=== PATIENT | female | born 1995 | race Caucasian/White ===

== ENCOUNTER 2021-08-28 19:50 | Inpatient (IN) | payer BC ==
[2021-08-28] MEDS ORDERED: Butorphanol 1 MG/ML SDV IVPUSH PRN (21:42)
[2021-08-28] MEDS ORDERED: Water For Irrigation,Sterile 1,000 ML Container IRR PRN (21:42)
[2021-08-28] MEDS ORDERED: Misoprostol 200 MCG Tab PO PRN (21:42)
[2021-08-28] MEDS ORDERED: Ondansetron 4 MG/2 ML SDV IVPUSH PRN (21:42)
[2021-08-28] MEDS ORDERED: Nalbuphine 10 MG/1 ML Vial IVPUSH PRN (21:42)
[2021-08-28] MEDS ORDERED: Sodium Chloride 0.9% 10 ML Syringe FLUSH PRN (21:42)
[2021-08-28] MEDS ORDERED: Carboprost Tromethamine 250 MCG/1 ML Amp IM PRN (21:42)
[2021-08-28] MEDS ORDERED: Methylergonovine 0.2 MG/1 ML Amp IM PRN (21:42)
[2021-08-28] MEDS ORDERED: Tranexamic Acid 1,000 MG in Sodium Chloride 0.9% 100 ML IV PRN (21:42)
[2021-08-28] MEDS ORDERED: Sodium Chloride 0.9% 2.5 ML Syringe FLUSH PRN (21:42)
[2021-08-28] MEDS ORDERED: Lidocaine 1% 50 ML MDV INJECT PRN (21:42)
[2021-08-28] MEDS ORDERED: Sodium Chloride 0.9% 10 ML SDV IV PRN (21:42)
[2021-08-28] MEDS ORDERED: Oxytocin/0.9 % Sodium Chloride 30 UNIT/500 ML BAG IV SCH (21:45)
[2021-08-28] MEDS: Lactated Ringers 1,000 ML IV SCH ×3 (22:04→23:56)
[2021-08-28] MEDS ORDERED: Ropivacaine HCl/PF 200 ML ONE (23:50)
--- NOTE | 2021-08-29 00:15 | PCM.PREANE ---
Preanesthetic Assessment - Anesthesia/Transfusion/Family Hx Anesthesia History: No Prior Anesthesia Family History of Anesthesia Reaction: No Transfusion History: No Prior Transfusion(s) - Review of Systems General: No Symptoms Pulmonary: Other (Covid + without symptoms) Cardiovascular: No Symptoms Gastrointestinal: No Symptoms Neurological: No Symptoms Other: Reports: None - Physical Assessment NPO Status Date: 08/29/21 NPO Status Time: 20:00 Height: 1.68 m Weight: 108.862 kg ASA Class: 2 Mental Status: Alert & Oriented x3 Airway Class: Mallampati = 2 Dentition: Reports: Normal Dentition Thyro-Mental Finger Breadths: 3 Mouth Opening Finger Breadths: 3 ROM/Head Extension: Full Lungs: Clear to Auscultation, Normal Respiratory Effort Cardiovascular: Regular Rate, Regular Rhythm - Lab Values: Laboratory Last Values WBC 7.84 K/uL (4.0-11.0) 08/28/21 22:02 RBC 3.76 M/uL (4.30-5.90) L 08/28/21 22:02 Hgb 10.9 g/dL (12.0-16.0) L 08/28/21 22:02 Hct 31.4 % (36.0-46.0) L 08/28/21 22:02 MCV 83.5 fL (80.0-98.0) 08/28/21 22:02 MCH 29.0 pg (27.0-32.0) 08/28/21 22:02 MCHC 34.7 g/dL (31.0-37.0) 08/28/21 22:02 RDW Std Deviation 39.2 fl (28.0-62.0) 08/28/21 22:02 RDW Coeff of Kwasi 13 % (11.0-15.0) 08/28/21 22:02 Plt Count 299 K/uL (150-400) 08/28/21 22:02 MPV 9.60 fL (7.40-12.00) 08/28/21 22:02 Nucleated RBC % 0.0 /100WBC 08/28/21 22:02 Nucleated RBCs # 0 K/uL 08/28/21 22:02 SARS-CoV-2 RNA (LUCIO) POSITIVE (NEGATIVE) H 08/28/21 22:07 Blood Type B NEGATIVE 08/28/21 22:02 Antibody Screen NEGATIVE 08/28/21 22:02 - Allergies Allergies/Adverse Reactions: Allergies Allergy/AdvReac Type Severity Reaction Status Date / Time No Known Allergies Allergy Verified 08/28/21 20:19 - Blood Blood Available: Yes Product(s) Available: PRBC (Type and screen) - Anesthesia Plan Pre-Op Medication Ordered: None - Acknowledgements Anesthesia Type Planned: Epidural Pt an Appropriate Candidate for the Planned Anesthesia: Yes Alternatives and Risks of Anesthesia Discussed w Pt/Guardian: Yes Pt/Guardian Understands and Agrees with Anesthesia Plan: Yes PreAnesthesia Questionnaire - Past Health History Medical/Surgical History: Denies 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: - Infectious Disease History Infectious Disease History: Reports: Chicken Pox - SUBSTANCE USE Tobacco Use Status *Q: Former Tobacco User Tobacco Use Within Last Twelve Months: Cigarettes Second Hand Smoke Exposure: No Recreational Drug Use History: No - HOME MEDS Home Medications: Home Meds Omeprazole Magnesium [Prilosec Otc] 1 tab PO DAILY 08/28/21 [History] Pnv No.95/Ferrous Fum/Folic AC [ Vitamins Tablet] 1 tab PO DAILY 08/28/21 [History] - CURRENT (IN HOUSE) MEDS Current Meds: Current Medications Butorphanol Tartrate (Butorphanol 1 Mg/Ml Sdv) 1 mg IVPUSH Q1H PRN PRN Reason: Pain (severe 7-10) Carboprost Tromethamine (Carboprost Tromethamine 250 Mcg/1 Ml Amp) 250 mcg IM ASDIRECTED PRN PRN Reason: Post Hemorrhage Oxytocin/Sodium Chloride (Oxytocin 30 Unit In Ns 0.9% 500 Ml Premix) 30 unit in 500 mls @ 500 mls/hr IV TITRATE [place] Tranexamic Acid 1,000 mg/ (Sodium Chloride) 110 mls @ 660 mls/hr IV ONETIME PRN PRN Reason: Bleeding Lactated Ringer's (Ringers, Lactated) 1,000 mls @ 150 mls/hr IV ASDIRECTED [facility] Last Infusion: 08/29/21 00:04 Dose: 200 mls/hr Documented by: Lidocaine HCl (Lidocaine 1% 50 Ml Mdv) 50 ml INJECT ONETIME PRN PRN Reason: Laceration repair Methylergonovine Maleate (Methylergonovine 0.2 Mg/1 Ml Amp) 0.2 mg IM ASDIRECTED PRN PRN Reason: Post Hemorrhage Misoprostol (Misoprostol 200 Mcg Tab) 200 mcg PO ONETIME PRN PRN Reason: Post Hemorrhage Nalbuphine HCl (Nalbuphine 10 Mg/1 Ml Vial) 10 mg IVPUSH Q1H PRN PRN Reason: Pain (severe 7-10) Ondansetron HCl (Ondansetron 4 Mg/2 Ml Sdv) 4 mg IVPUSH Q4H PRN PRN Reason: Nausea/Vomiting Sodium Chloride (Sodium Chloride 0.9% 10 Ml Syringe) 10 ml FLUSH ASDIRECTED PRN PRN Reason: Keep Vein Open Sodium Chloride (Sodium Chloride 0.9% 2.5 Ml Syringe) 2.5 ml FLUSH ASDIRECTED PRN PRN Reason: Keep Vein Open Sodium Chloride (Sodium Chloride 0.9% 10 Ml Sdv) 10 ml IV ASDIRECTED PRN PRN Reason: IV Use Sterile Water (Water For Irrigation,Sterile 1,000 Ml Container) 1,000 ml IRR ASDIRECTED PRN PRN Reason: delivery Discontinued Medications Ropivacaine (Naropin 0.2%) Confirm Administered Dose 200 mls @ as directed .ROUTE .RUST-MED ONE Stop: 08/28/21 23:51
--- NOTE | 2021-08-29 00:25 | PCM.SN.2 ---
Time Documentation - Pre-Procedure Checklist Attending Provider Aware: Yes Chart Reviewed: Yes Consent Signed: Yes Labs Reviewed: Yes VS/FHR Reviewed: Yes Patient Identification Confirmation Method: Reports: Chart Visual, Verbal Patient Pt an Appropriate Candidate for the Planned Anesthesia: Yes Alternatives and Risks of Anesthesia Discussed w Pt/Guardian: Yes - Procedure Procedure Start Date: 08/28/21 Procedure Start Time: 23:[address]: Reports: Blood Pressure, Heart Rate, SPO2 Functional IV: Yes Safety Measures: Reports: Patient Identified, Procedure Verified, Site Verified, Procedure Time Out Patient Position: Reports: Sitting Prep: Reports: Betadine x3 Local Anesthetic: Reports: Intradermal Wheal w Lidocaine 1% (3 ml) Regional Placement Level: Reports: L3-4 Needle: Reports: 17 g Touhy Approach: Reports: Midline Technique: Reports: JES Glass Syringe JES Needle Depth (cm): 7 cm Parasthesia: Reports: None, Other (momentary sensation down leg with resolved instantly durring catheter placement.) Fluid Obtained: Reports: None Catheter Depth at Skin (cm): 17 cm Test Dose Time: 23:46 Test Dose Medication: Reports: Lidocaine 1.5% w Epinephrine 1:200,000 (5 ml) Test Dose Response: Reports: Negative Loading Dose Time: 23:55 Loading Dose Medication: Ropivicaine 0.2% Loading Dose Patient Position: Supine Continuous Infusion Start Time: 23:56 Continuous Infusion Medication: Ropivicaine 0.2% Continuous Infusion Rate: 10 Continuous Infusion PCS Bolus Option: 6 Continuous Infusion Lockout Dose (cc/hr): 15 Patient Position Post Placement: Reports: Supline/EDWIN Post-procedure Pain Level: 2 Level Achieved: t4 VS and FHR Monitored in Unit Post Placement: Yes Procedure End Date: 08/29/21 Procedure End Time: 00:30 Procedure Comment: Sterile technique used throughout.
[2021-08-29] MEDS ORDERED: ePHEDrine 50 MG/ML SDV IVPUSH PRN (00:31)
--- NOTE | 2021-08-29 00:31 | PCM.POSTAN ---
POST ANESTHESIA ASSESSMENT - MENTAL STATUS Mental Status: Alert, Oriented - RESPIRATORY Respiratory Status: Respiratory Rate WNL, Airway Patent, O2 Saturation Stable - CARDIOVASCULAR CV Status: Pulse Rate WNL, Blood Pressure Stable - GASTROINTESTINAL GI Status: No Symptoms - POST OP HYDRATION Hydration Status: Adequate & Stable (Orders left to check PLT prior to catheter removal and notify anesthesia if PLT less than 100.)
[2021-08-29] MEDS ORDERED: Ropivacaine/PF 400 MG/200 ML PCA EPIDUR SCH (00:45)
[2021-08-29] MEDS: Lactated Ringers 1,000 ML IV SCH ×2 (02:58→05:58)
[2021-08-29] MEDS ORDERED: Acetaminophen 500 MG Tab PO STA (05:45)
[2021-08-29] MEDS ORDERED: Oxytocin/0.9 % Sodium Chloride 30 UNIT/500 ML BAG IV SCH ×2 (09:00→18:45)
[2021-08-29] MEDS ORDERED: Ropivacaine HCl/PF 200 ML ONE (15:22)
[2021-08-29] MEDS ORDERED: Ampicillin/Sulbactam Na 3 GM in Sodium Chloride 0.9% 100 ML IV ONE (15:45)
[2021-08-29] MEDS ORDERED: Acetaminophen 500 MG Tab PO ONE (15:47)
[2021-08-29] MEDS ORDERED: Acetaminophen 500 MG Tab ONE (15:55)
[2021-08-29] MEDS ORDERED: Terbutaline 1 MG/ML SDV ONE (18:26)
[2021-08-29] MEDS ORDERED: Citric Acid/Sodium Citrate Solution 30 ML Cup PO ONE (18:38)
[2021-08-29] MEDS ORDERED: ceFAZolin 2 GM in Premix Bag 1 BAG IV ONE (18:38)
[2021-08-29] MEDS ORDERED: fentaNYL 100 MCG/2 ML SDV ONE (18:42)
[2021-08-29] MEDS ORDERED: Lidocaine 2% with EPINEPHrine 1:200,000 20 ML SDV ONE ×2 (18:42→19:56)
[2021-08-29] MEDS ORDERED: Lactated Ringers 1,000 ML IV SCH ×2 (18:45→20:45)
[2021-08-29] MEDS ORDERED: Octyl 2-Cyanoacrylate 1 Tube ONE (19:10)
[2021-08-29] MEDS ORDERED: Glycopyrrolate 0.2 MG/ML SDV ONE (19:56)
[2021-08-29] MEDS ORDERED: ePHEDrine 50 MG/ML SDV ONE (19:56)
[2021-08-29] MEDS ORDERED: Lidocaine 2% 5 ML SDV ONE (19:56)
[2021-08-29] MEDS ORDERED: Ondansetron 4 MG/2 ML SDV ONE (19:56)
[2021-08-29] MEDS ORDERED: Metoclopramide 10 MG/2 ML SDV ONE (19:58)
[2021-08-29] MEDS ORDERED: Dexamethasone 4 MG/ML 5 ML MDV ONE (19:58)
--- NOTE | 2021-08-29 20:36 | PCM.OPNOTE ---
- General Post-Op/Procedure Note Date of Surgery/Procedure: 08/29/21 Operative Procedure(s): primary low transverse Findings: Liveborn male 8/8 weight 4310 grams, normal pelvis, thick meconium Pre Op Diagnosis: 40 3/7 weeks, labor, meconium, febrile, COVID positive Post-Op Diagnosis: Same Anesthesia Technique: Epidural Primary Surgeon: Vandana Crouch Anesthesia Provider: Esa Uribe Pathology: placenta to pathology Fluid Replacement, Intraop: 1,800 EBL in mLs: 500 Complications: None Known Condition: Good Free Text/Narrative:: Intake & Output 08/29/21 08/29/21 08/29/21 06:59 14:59 22:59 Intake Total 3000 Balance 3000
[2021-08-29] MEDS ORDERED: Misoprostol 200 MCG Tab RECTAL PRN (20:38)
[2021-08-29] MEDS ORDERED: Oxytocin 10 Units/1 ML SDV IM PRN (20:38)
[2021-08-29] MEDS ORDERED: Bisacodyl 10 MG Supp RECTAL PRN (20:38)
[2021-08-29] MEDS ORDERED: Ondansetron 4 MG/2 ML SDV IVPUSH PRN (20:38)
[2021-08-29] MEDS ORDERED: diphenhydrAMINE 50 MG/ML SDV IVPUSH PRN (20:38)
[2021-08-29] MEDS ORDERED: Methylergonovine 0.2 MG/1 ML Amp IM PRN (20:38)
[2021-08-29] MEDS ORDERED: Lanolin 100% Cream 7 GM Tube TOP PRN (20:38)
[2021-08-29] MEDS ORDERED: Acetaminophen/oxyCODONE 325-5 MG Tab PO PRN (20:38)
[2021-08-29] MEDS ORDERED: Oxytocin/Lactated Ringers 30 UNIT/500 ML BAG IV SCH (20:45)
[2021-08-29] MEDS: Ketorolac 30 MG/ML SDV IVPUSH SCH (21:33)
--- NOTE | 2021-08-29 21:47 | PCM48HPAN ---
Post Anesthesia Note - EVALUATION WITHIN 48HRS OF ANESTHETIC Vital Signs in Normal Range: Yes Patient Participated in Evaluation: Yes Respiratory Function Stable: Yes Airway Patent: Yes Cardiovascular Function Stable: Yes Hydration Status Stable: Yes Pain Control Satisfactory: Yes Nausea and Vomiting Control Satisfactory: Yes Mental Status Recovered: Yes Vital Signs: Last Vital Signs Temp 37.2 C 08/29/21 20:22 Pulse 102 H 08/29/21 21:17 Resp 14 08/29/21 21:17 BP 114/51 L 08/29/21 21:17 Pulse Ox 97 08/29/21 21:17
--- NOTE | 2021-08-29 21:52 | PCM.SN.2 ---
Time Documentation - Pre-Procedure Checklist Attending Provider Aware: Yes Chart Reviewed: Yes Consent Signed: Yes Labs Reviewed: Yes VS/FHR Reviewed: Yes Patient Identification Confirmation Method: Reports: Chart Visual, Verbal Patient Pt an Appropriate Candidate for the Planned Anesthesia: Yes Alternatives and Risks of Anesthesia Discussed w Pt/Guardian: Yes - Procedure Procedure Start Date: 08/29/21 Procedure Start Time: 19:[address]: Reports: Blood Pressure, Heart Rate, SPO2 Functional IV: Yes Safety Measures: Reports: Patient Identified, Procedure Verified, Site Verified, Procedure Time Out Patient Position: Reports: Sitting Prep: Reports: Betadine x3 Local Anesthetic: Reports: Intradermal Wheal w Lidocaine 1% (3 ml) Regional Placement Level: Reports: L3-4 Needle: Reports: 17 g Touhy Approach: Reports: Midline Technique: Reports: JES Glass Syringe JES Needle Depth (cm): 6.5 cm Parasthesia: Reports: None Fluid Obtained: Reports: None Catheter Depth at Skin (cm): 15 cm Test Dose Time: 19:18 Test Dose Medication: Reports: Lidocaine 1.5% w Epinephrine 1:200,000 (5 ml) Test Dose Response: Reports: Negative Loading Dose Time: 19:18 Loading Dose Medication: 2 % Lido with 1:200,000 Epi PF Loading Dose Patient Position: 20 Continuous Infusion Start Time: 19:18 (no infusion started) Patient Position Post Placement: Reports: Supline/EDWIN Post-procedure Pain Level: 0 Level Achieved: T4 VS and FHR Monitored in Unit Post Placement: Yes Procedure End Date: 08/29/21 Procedure End Time: 19:20 Procedure Comment: Epidural end cap became dislodged and contaminated and second epidural was required for C Section. Sterile Technique used throughout.
[2021-08-29] MEDS ORDERED: Ampicillin/Sulbactam Na 1.5 GM in Sodium Chloride 0.9% 50 ML IV SCH (22:00)
[2021-08-29] MEDS: Ampicillin/Sulbactam Na 1.5 GM in Sodium Chloride 0.9% 50 ML IV SCH (22:03)
--- NOTE | 2021-08-29 23:05 | PCM.SN.2 ---
- Free Text/Narrative Note: 1909: Epidural noted to have become disconnected and sterility of end could not be confirmed and decision was made to replace epidural to provide analgesia for . First epidural removed with tip intact. 2020: Epidural removed with tip intact in OR. Time Documentation
--- NOTE | 2021-08-29 23:35 | OR ---
SURGEON: Vandana Crouch M.D. DATE OF PROCEDURE: 08/29/2021 PREOPERATIVE DIAGNOSES: 1. 40 and 3/7-week intrauterine . 2. Suspected macrosomia. 3. Arrest of descent. 4. COVID-positive. POSTOPERATIVE DIAGNOSES: 1. 40 and 3/7-week intrauterine . 2. Suspected macrosomia. 3. Arrest of descent. 4. COVID-positive. PROCEDURE: Primary low-transverse section. PRIMARY SURGEON: Vandana Crouch M.D. ANESTHESIA: Epidural. ESTIMATED BLOOD LOSS: 500 mL. FLUIDS: 1800 mL crystalloid. FINDINGS: 1. Liveborn male. 2. scores of 8 and 8. 3. Weighing 4310 g. 4. Hydrocele is noted. 5. Thick meconium. COMPLICATIONS: None known. DISPOSITION: Stable to Recovery. BRIEF HISTORY: This is a 25-year-old female. She is a primigravida, presents at 3 to 4 cm dilatation, was admitted to Labor and Delivery. She had suspected macrosomia with ultrasound weight estimated at 4080 g, however, Guero was suspected 4500 g. She on admission was noted to be COVID-positive and although she denied symptoms, she did develop a fever up to 103 during labor which responded to Tylenol and hydration. heart tones were episodically tachycardic. She had artificial rupture of membranes at 5 cm dilatation and thick meconium was noted at that time. After hydration and Tylenol, her heart tones improved significantly. She was started on Unasyn 3 g IV, and she remained at 5 to 6 cm dilatation over the next 4 hours. Therefore, IUPC was placed and Pitocin was initiated to a maximum of 4 milliunits per minute to develop adequate contraction pattern and with this, she progressed to complete. She did push over a 4-hour time period, starting at a -3 station. The caput ended out at 4+ station. However, the head was at a 2 to 3+ station. The skull was at a 2 to 3+ station. After 4 hours, the patient requested delivery. I did not recommend proceeding with an instrumental vaginal delivery due to the known or suspected macrosomia, and therefore she did request to proceed with a primary low transverse section. Pitocin was discontinued. Terbutaline was initiated. The head was elevated manually and the section crew was called. Risks were discussed including bleeding; infection; injury to bowel, bladder, blood vessels, ureters, or other organs; risk of thromboembolic event; risk of anesthesia. Understanding all these risks, she does desire to proceed. DESCRIPTION OF PROCEDURE: With the patient in left tilt position, under adequate epidural analgesia, the abdomen was prepped with chlorhexidine and draped in usual fashion for vaginal surgery. SCDs were in place. Marrufo catheter had been placed. Appropriate time- out was held. The patient was placed in a frog-leg position allowing cephalad pressure from the nurse during the . After appropriate time-out was held, having received a gram of azithromycin in addition to 2 g of Ancef due to the prolonged rupture of membranes and fever, a transverse curvilinear incision was made 2 cm cephalad from the pubic symphysis and carried through the subcutaneous tissue to the fascia which was scored transversely in the midline. The fascial incision was extended laterally using Monroe scissors. The rectus muscles were bluntly in the midline. A finger was used to enter the peritoneal cavity. The incision was extended using blunt dissection. The Sam O retractor was placed. The visceral peritoneum over the lower uterine segment was incised to develop an adequate bladder flap. A transverse curvilinear incision was made over the lower uterine segment with a scalpel. A finger was used to enter the amniotic cavity. Thick meconium was noted. With upward pressure from the assisting nurse's hand, I fairly easily elevated the baby's head into the uterine incision and with fundal pressure, the was partially delivered and bulb-suctioned by nose and mouth with subsequent delivery of the infant's shoulders and body without any difficulty. After 45 seconds, the cord was doubly clamped and cut and the infant was handed to the medical lead in attendance at delivery. The was a liveborn male, scores of 8 and 8, weight of 4310 g. Cord blood was collected for cord ABGs as well as routine cord blood sampling. Pitocin was initiated after delivery of the infant to assist with delivery of the placenta which was delivered spontaneously, Schultze intact, and sent to Pathology. The uterus was cleaned with a dry laparotomy tape. The uterine incision was closed with a running lock suture of 0 Polysorb. The imbricating layer was performed and three additional [id number] sutures were placed for complete hemostasis. The paracolic gutters were irrigated and cleaned. Tubes and ovaries appeared normal. The uterine incision was hemostatic. The Sam retractor was removed. Final inspection revealed complete hemostasis of the uterine incision. Therefore, the rectus muscle and peritoneum were loosely approximated in the midline using a running mattress suture of 0 Polysorb. The posterior aspect of the fascia was inspected and was hemostatic. The fascial incision was closed with a running suture of 0 Polysorb. Subcutaneous tissue was irrigated. Any areas of bleeding that were noted were cauterized. The skin was closed with a running subcuticular suture of 3-0 Monocryl followed by Dermabond. Final sponge, needle, and instrument counts were reported as correct. There were no known complications. Mother is transferred to Recovery in good condition. is in the nursery room in isolation due to COVID-positive mom and is being transferred due to suspected meconium aspiration versus symptomatic COVID. ELIGIO / STEPHANIE /[id number]
[2021-08-30] MEDS: Ketorolac 30 MG/ML SDV IVPUSH SCH ×4 (04:19→22:52)
[2021-08-30] MEDS: Ampicillin/Sulbactam Na 1.5 GM in Sodium Chloride 0.9% 50 ML IV SCH ×3 (04:20→16:25)
--- NOTE | 2021-08-30 09:49 | PCM.PNPP ---
- General Info Date of Service: 08/30/21 Functional Status: Reports: Pain Controlled, Tolerating Diet, Ambulating, Urinating - Review of Systems General: Reports: No Symptoms HEENT: Reports: No Symptoms Pulmonary: Reports: No Symptoms Cardiovascular: Reports: No Symptoms Gastrointestinal: Reports: No Symptoms Genitourinary: Reports: No Symptoms Musculoskeletal: Reports: No Symptoms Skin: Reports: No Symptoms Neurological: Reports: No Symptoms Psychiatric: Reports: No Symptoms - Patient Data Vital Signs - Most Recent: Last Vital Signs Temp 37.4 C 08/29/21 21:45 Pulse 99 08/29/21 21:45 Resp 20 08/29/21 21:45 BP 123/68 08/29/21 21:45 Pulse Ox 95 08/29/21 21:45 Weight - Most Recent: 108.862 kg I&O - Last 24 Hours: Intake & Output 08/29/21 08/30/21 08/30/21 22:59 06:59 14:59 Intake Total 3000 Output Total 225 3250 Balance 2775 -3250 Lab Results - Last 24 Hours: Laboratory Results - last 24 hr 08/29/21 08/29/21 08/30/21 Range/Units 19:44 21:22 05:35 Hgb 9.4 L (12.0-16.0) g/dL Hct 27.9 L (36.0-46.0) % Cord ABG pH 7.181 (7.18-7.38) Cord ABG Base Excess -8 (-10--2) Cord VBG pH 7.274 (7.25-7.45) Cord VBG Base Excess -8 (-10--2) Screen NEGATIVE (NEGATIVE) RhIG Candidate? YES Rhogam Indicated YES, BABY RH POS H Med Orders - Current: Current Medications Bisacodyl (Bisacodyl 10 Mg Supp) 10 mg RECTAL ONETIME PRN PRN Reason: Constipation Diphenhydramine HCl (Diphenhydramine 50 Mg/Ml Sdv) 25 mg IVPUSH Q6H PRN PRN Reason: Itching or Nausea Docusate Sodium (Docusate Sodium 100 Mg Cap) 100 mg PO BID [place] Emollient Ointment (Lanolin 100% Cream 7 Gm Tube) 0 gm TOP ASDIRECTED PRN PRN Reason: Sore Nipples Lactated Ringer's (Ringers, Lactated) 1,000 mls @ 125 mls/hr IV ASDIRECTED [facility] Last Admin: 08/29/21 22:27 Dose: 125 mls/hr Documented by: Oxytocin/Lactated Ringer's (Pitocin In Lr 30 Units/500 Ml) 30 unit in 500 mls @ 999 mls/hr IV TITRATE [place]; Protocol Ampicillin Sodium/Sulbactam (Sodium 1.5 gm/ Sodium Chloride) 50 mls @ 150 mls/hr IV Q6H [facility] Stop: 08/30/21 16:19 Last Admin: 08/30/21 04:20 Dose: 150 mls/hr Documented by: Ibuprofen (Ibuprofen 800 Mg Tab) 800 mg PO Q8H PRN PRN Reason: Cramping Ketorolac Tromethamine (Ketorolac 30 Mg/Ml Sdv) 30 mg IVPUSH Q6H [place] Stop: 08/30/21 20:46 Last Admin: 08/30/21 04:19 Dose: 30 mg Documented by: Methylergonovine Maleate (Methylergonovine 0.2 Mg/1 Ml Amp) 0.2 mg IM ONETIME PRN PRN Reason: Excessive Vaginal Bleeding Misoprostol (Misoprostol 200 Mcg Tab) 1,000 mcg RECTAL ONETIME PRN PRN Reason: excessive bleeding Ondansetron HCl (Ondansetron 4 Mg/2 Ml Sdv) 4 mg IVPUSH Q4H PRN PRN Reason: Nausea/Vomiting Oxycodone/Acetaminophen (Acetaminophen/Oxycodone 325-5 Mg Tab) 2 tab PO Q4H PRN PRN Reason: Pain (severe 7-10) Oxytocin (Oxytocin 10 Units/1 Ml Sdv) 10 unit IM ASDIRECTED PRN PRN Reason: Excessive Vaginal Bleeding Discontinued Medications Acetaminophen (Acetaminophen 500 Mg Tab) 1,000 mg PO STAT STA Stop: 08/29/21 05:46 Last Admin: 08/29/21 05:54 Dose: 1,000 mg Documented by: Acetaminophen (Acetaminophen 500 Mg Tab) 1,000 mg PO ONETIME ONE Stop: 08/29/21 15:48 Last Admin: 08/29/21 16:10 Dose: 1,000 mg Documented by: Acetaminophen (Acetaminophen 500 Mg Tab) Confirm Administered Dose 1,000 mg .ROUTE .STK-MED ONE Stop: 08/29/21 15:56 Butorphanol Tartrate (Butorphanol 1 Mg/Ml Sdv) 1 mg IVPUSH Q1H PRN PRN Reason: Pain (severe 7-10) Carboprost Tromethamine (Carboprost Tromethamine 250 Mcg/1 Ml Amp) 250 mcg IM ASDIRECTED PRN PRN Reason: Post Hemorrhage Citric Acid/Sodium Citrate (Citric Acid/Sodium Citrate Solution 30 Ml Cup) 30 ml PO ONETIME ONE Stop: 08/29/21 18:39 Dexamethasone (Dexamethasone 4 Mg/Ml 5 Ml Mdv) Confirm Administered Dose 20 mg .ROUTE .STK-MED ONE Stop: 08/29/21 19:59 Ephedrine Sulfate (Ephedrine 50 Mg/Ml Sdv) 10 mg IVPUSH Q1M PRN PRN Reason: Hypotension Ephedrine Sulfate (Ephedrine 50 Mg/Ml Sdv) Confirm Administered Dose 50 mg .ROUTE .STK-MED ONE Stop: 08/29/21 19:57 Fentanyl (Fentanyl 100 Mcg/2 Ml Sdv) Confirm Administered Dose 100 mcg .ROUTE .STK-MED ONE Stop: 08/29/21 18:43 Glycopyrrolate (Glycopyrrolate 0.2 Mg/Ml Sdv) Confirm Administered Dose 0.4 mg .ROUTE .STK-MED ONE Stop: 08/29/21 19:57 Oxytocin/Sodium Chloride (Oxytocin 30 Unit In Ns 0.9% 500 Ml Premix) 30 unit in 500 mls @ 500 mls/hr IV TITRATE [place] Tranexamic Acid 1,000 mg/ (Sodium Chloride) 110 mls @ 660 mls/hr IV ONETIME PRN PRN Reason: Bleeding Lactated Ringer's (Ringers, Lactated) 1,000 mls @ 150 mls/hr IV ASDIRECTED [place] Last Infusion: 08/29/21 06:12 Dose: 150 mls/hr Documented by: Ropivacaine (Naropin 0.2%) Confirm Administered Dose 200 mls @ as directed .ROUTE .STK-MED ONE Stop: 08/28/21 23:51 Oxytocin/Sodium Chloride (Oxytocin 30 Unit In Ns 0.9% 500 Ml Premix) 30 unit in 500 mls @ 2 mls/hr IV TITRATE [place]; Protocol Last Infusion: 08/29/21 18:25 Dose: 0 munits/min, 0 mls/hr Documented by: Ropivacaine (Naropin 0.2%) Confirm Administered Dose 200 mls @ as directed .ROUTE .STK-MED ONE Stop: 08/29/21 15:23 Ampicillin Sodium/Sulbactam (Sodium 3 gm/ Sodium Chloride) 100 mls @ 200 mls/hr IV ONETIME ONE Stop: 08/29/21 16:14 Last Admin: 08/29/21 16:15 Dose: 200 mls/hr Documented by: Ampicillin Sodium/Sulbactam (Sodium 1.5 gm/ Sodium Chloride) 50 mls @ 150 mls/hr IV Q6H [place] Lactated Ringer's (Ringers, Lactated) 1,000 mls @ 500 mls/hr IV BOLUS [place] Oxytocin/Sodium Chloride (Oxytocin 30 Unit In Ns 0.9% 500 Ml Premix) 30 unit in 500 mls @ 250 mls/hr IV TITRATE [place] Cefazolin Sodium/Dextrose 2 gm (/ Premix) 50 mls @ 100 mls/hr IV ONETIME ONE Stop: 08/29/21 19:07 Azithromycin 1,000 mg/ Sodium (Chloride) 250 mls @ 250 mls/hr IV ONETIME ONE Stop: 08/29/21 19:37 Last Admin: 08/29/21 18:59 Dose: 250 mls/hr Documented by: Cefazolin Sodium/Dextrose (Ancef 2 Gm/50 Ml) Confirm Administered Dose 50 mls @ as directed .ROUTE .STK-MED ONE Stop: 08/29/21 19:57 Lidocaine (Lidocaine 2% 5 Ml Sdv) Confirm Administered Dose 5 ml .ROUTE .STK-MED ONE Stop: 08/29/21 19:57 Lidocaine HCl (Lidocaine 1% 50 Ml Mdv) 50 ml INJECT ONETIME PRN PRN Reason: Laceration repair Lidocaine/Epinephrine (Lidocaine 2% With Epinephrine 1:200,000 20 Ml Sdv) Confirm Administered Dose 20 ml .ROUTE .STK-MED ONE Stop: 08/29/21 18:43 Lidocaine/Epinephrine (Lidocaine 2% With Epinephrine 1:200,000 20 Ml Sdv) Confirm Administered Dose 20 ml .ROUTE .STK-MED ONE Stop: 08/29/21 19:57 Methylergonovine Maleate (Methylergonovine 0.2 Mg/1 Ml Amp) 0.2 mg IM ASDIRECTED PRN PRN Reason: Post Hemorrhage Metoclopramide HCl (Metoclopramide 10 Mg/2 Ml Sdv) Confirm Administered Dose 10 mg .ROUTE .STK-MED ONE Stop: 08/29/21 19:59 Miscellaneous Medication (Phenylephrine Hcl In 0.9% Nacl 1 Mg/10 Ml Syringe) 0.1 mg IVPUSH Q1M PRN PRN Reason: Hypotension Miscellaneous Medication (Phenylephrine Hcl In 0.9% Nacl 1 Mg/10 Ml Syringe) Confirm Administered Dose 1 mg .ROUTE .STK-MED ONE Stop: 08/29/21 19:57 Misoprostol (Misoprostol 200 Mcg Tab) 200 mcg PO ONETIME PRN PRN Reason: Post Hemorrhage Nalbuphine HCl (Nalbuphine 10 Mg/1 Ml Vial) 10 mg IVPUSH Q1H PRN PRN Reason: Pain (severe 7-10) Octyl Cyanoacrylate (Octyl 2-Cyanoacrylate 1 Tube) Confirm Administered Dose 1 applic .ROUTE .STK-MED ONE Stop: 08/29/21 19:11 Ondansetron HCl (Ondansetron 4 Mg/2 Ml Sdv) 4 mg IVPUSH Q4H PRN PRN Reason: Nausea/Vomiting Ondansetron HCl (Ondansetron 4 Mg/2 Ml Sdv) Confirm Administered Dose 4 mg .ROUTE .STK-MED ONE Stop: 08/29/21 19:57 Ropivacaine (Ropivacaine/Pf 400 Mg/200 Ml Licensed Practical Nurse Instructor) 400 mg EPIDUR ASDIRECTED [place] Sodium Chloride (Sodium Chloride 0.9% 10 Ml Syringe) 10 ml FLUSH ASDIRECTED PRN PRN Reason: Keep Vein Open Sodium Chloride (Sodium Chloride 0.9% 2.5 Ml Syringe) 2.5 ml FLUSH ASDIRECTED PRN PRN Reason: Keep Vein Open Sodium Chloride (Sodium Chloride 0.9% 10 Ml Sdv) 10 ml IV ASDIRECTED PRN PRN Reason: IV Use Sterile Water (Water For Irrigation,Sterile 1,000 Ml Container) 1,000 ml IRR ASDIRECTED PRN PRN Reason: delivery Terbutaline Sulfate (Terbutaline 1 Mg/Ml Sdv) Confirm Administered Dose 1 mg .ROUTE .STK-MED ONE Stop: 08/29/21 18:27 Last Admin: 08/29/21 18:30 Dose: 0.25 mg Documented by: - Infant Interaction Disposition, : NICU [place] Support Person: - Recovery Exam Fundal Tone: Firm Fundal Level: At Umbilicus Fundal Placement: Midline Lochia Amount: Small Lochia Color: Rubra/Red Perineum Description: Edematous Episiotomy/Laceration: None Bladder Status: Indwelling Catheter in Place Urinary Elimination: Indwelling Catheter - Exam General: Alert, Oriented Neck: Supple Lungs: Normal Respiratory Effort GI/Abdominal Exam: Soft, Non-Tender, No Distention Extremities: Non-Tender. No: No Pedal Edema (2+ bilateral) Skin: Warm, Dry, Intact Wound/Incisions: Dressing Dry and Intact Neurological: No New Focal Deficit Psy/Mental Status: Alert, Normal Affect, Normal Mood - Problem List Review Problem List Initiated/Reviewed/Updated: Yes - My Orders Last 24 Hours: My Active Orders 08/29/21 20:38 Patient Status [ADT] Routine Ambulate [RC] PER UNIT ROUTINE Antiembolic Devices [RC] PER UNIT ROUTINE Communication Order [RC] PER UNIT ROUTINE Communication Order [RC] PER UNIT ROUTINE Communication Order [RC] Per Unit Routine May Shower [RC] ASDIRECTED RT Incentive Spirometry [RC] Q2HWA Vital Signs [RC] PER UNIT ROUTINE Acetaminophen/oxyCODONE [Percocet 325-5 MG] 2 tab PO Q4H PRN Lanolin [Lansinoh HPA] See Dose Instructions TOP ASDIRECTED PRN Methylergonovine [Methergine] 0.2 mg IM ONETIME PRN Ondansetron [Zofran] 4 mg IVPUSH Q4H PRN Oxytocin [Pitocin] 10 unit IM ASDIRECTED PRN bisacodyL [Dulcolax] 10 mg RECTAL ONETIME PRN diphenhydrAMINE [Benadryl] 25 mg IVPUSH Q6H PRN miSOPROStoL [Cytotec] 1,000 mcg RECTAL ONETIME PRN Abdominal Binder [OM.PC] Urgent Assess Lochia [WOMSER] Per Unit Routine Assess Uterine Involution [WOMSER] Per Unit Routine Breast Pump [WOMSER] Per Unit Routine Peripheral IV Discontinue [OM.PC] Routine Sequential Compression Device [OM.PC] Per Unit Routine Resuscitation Status Routine 08/29/21 20:39 Notify Provider Vital Signs [RC] ASDIRECTED 08/29/21 20:40 Notify Provider Intake and Out [RC] ASDIRECTED 08/29/21 20:45 Ketorolac [Toradol] 30 mg IVPUSH Q6H Lactated Ringers [Ringers, Lactated] 1,000 ml IV ASDIRECTED Oxytocin/Lactated Ringers [Pitocin in LR 30 Units/500 ML] 30 unit in 500 ml IV TITRATE 08/29/21 21:00 Docusate Sodium [Colace] 100 mg PO BID 08/29/21 21:22 SCREEN [BBK] Routine RH IMMUNE GLOBULIN [BBK] Routine RHOGAM, [RHIG WORKUP, ] [BBK] Routine 08/29/21 22:00 Ampicillin/Sulbactam Na [Unasyn] 1.5 gm Sodium Chloride 0.9% [Normal Saline AdvBag] 50 ml IV Q6H 08/30/21 Breakfast Regular Diet [DIET] 08/31/21 04:20 Ibuprofen [Motrin] 800 mg PO Q8H PRN - Assessment Assessment:: POD#1 after primary for arrest of descent, covid positive, febrile during labor (Covid vs chorioamnionitis) Baby is stable on vent in [place], respiratory distress due to meconium vs sepsis. Patient is unable to travel to [place] due to being Covid positive, will need to quarantine for 10 days. She has good support from her and given the situation emotions are doing well. - Plan Plan:: Complete 4 doses of Unasyn postop due to fever in labor (chorioamnionitis vs Covid)_ Continue post op care Begin pumping Continue emotional support, stable at this time.
[2021-08-30] MEDS: Docusate Sodium 100 MG Cap PO SCH ×2 (10:36→22:54)
[2021-08-31] MEDS: Ibuprofen 800 MG Tab PO PRN ×2 (06:00→13:51)
--- NOTE | 2021-08-31 08:47 | PCM.PNPP ---
- General Info Date of Service: 08/31/21 Functional Status: Reports: Pain Controlled, Tolerating Diet, Ambulating, Urinating - Review of Systems General: Reports: No Symptoms HEENT: Reports: No Symptoms Pulmonary: Reports: No Symptoms Cardiovascular: Reports: No Symptoms Gastrointestinal: Reports: No Symptoms Genitourinary: Reports: No Symptoms Musculoskeletal: Reports: No Symptoms Skin: Reports: No Symptoms Neurological: Reports: No Symptoms Psychiatric: Reports: No Symptoms - General Info Date of Service: 08/24/21 - Patient Data Vital Signs - Most Recent: Last Vital Signs Temp 37.0 C 08/31/21 03:51 Pulse 102 H 08/31/21 03:51 Resp 17 08/31/21 03:51 BP 129/58 L 08/31/21 03:51 Pulse Ox 97 08/31/21 03:51 Weight - Most Recent: 108.862 kg I&O - Last 24 Hours: Intake & Output 08/30/21 08/31/21 08/31/21 22:59 06:59 14:59 Output Total 550 Balance -550 Med Orders - Current: Current Medications Bisacodyl (Bisacodyl 10 Mg Supp) 10 mg RECTAL ONETIME PRN PRN Reason: Constipation Diphenhydramine HCl (Diphenhydramine 50 Mg/Ml Sdv) 25 mg IVPUSH Q6H PRN PRN Reason: Itching or Nausea Docusate Sodium (Docusate Sodium 100 Mg Cap) 100 mg PO BID [place] Last Admin: 08/30/21 22:54 Dose: 100 mg Documented by: Emollient Ointment (Lanolin 100% Cream 7 Gm Tube) 0 gm TOP ASDIRECTED PRN PRN Reason: Sore Nipples Last Admin: 08/30/21 22:51 Dose: 7 gm Documented by: Lactated Ringer's (Ringers, Lactated) 1,000 mls @ 125 mls/hr IV ASDIRECTED [place] Last Admin: 08/29/21 22:27 Dose: 125 mls/hr Documented by: Oxytocin/Lactated Ringer's (Pitocin In Lr 30 Units/500 Ml) 30 unit in 500 mls @ 999 mls/hr IV TITRATE [place]; Protocol Ibuprofen (Ibuprofen 800 Mg Tab) 800 mg PO Q8H PRN PRN Reason: Cramping Last Admin: 08/31/21 06:00 Dose: 800 mg Documented by: Methylergonovine Maleate (Methylergonovine 0.2 Mg/1 Ml Amp) 0.2 mg IM ONETIME PRN PRN Reason: Excessive Vaginal Bleeding Misoprostol (Misoprostol 200 Mcg Tab) 1,000 mcg RECTAL ONETIME PRN PRN Reason: excessive bleeding Ondansetron HCl (Ondansetron 4 Mg/2 Ml Sdv) 4 mg IVPUSH Q4H PRN PRN Reason: Nausea/Vomiting Oxycodone/Acetaminophen (Acetaminophen/Oxycodone 325-5 Mg Tab) 2 tab PO Q4H PRN PRN Reason: Pain (severe 7-10) Oxytocin (Oxytocin 10 Units/1 Ml Sdv) 10 unit IM ASDIRECTED PRN PRN Reason: Excessive Vaginal Bleeding Discontinued Medications Acetaminophen (Acetaminophen 500 Mg Tab) 1,000 mg PO STAT [place]A Stop: 08/29/21 05:46 Last Admin: 08/29/21 05:54 Dose: 1,000 mg Documented by: Acetaminophen (Acetaminophen 500 Mg Tab) 1,000 mg PO ONETIME ONE Stop: 08/29/21 15:48 Last Admin: 08/29/21 16:10 Dose: 1,000 mg Documented by: Acetaminophen (Acetaminophen 500 Mg Tab) Confirm Administered Dose 1,000 mg .ROUTE .STK-MED ONE Stop: 08/29/21 15:56 Butorphanol Tartrate (Butorphanol 1 Mg/Ml Sdv) 1 mg IVPUSH Q1H PRN PRN Reason: Pain (severe 7-10) Carboprost Tromethamine (Carboprost Tromethamine 250 Mcg/1 Ml Amp) 250 mcg IM ASDIRECTED PRN PRN Reason: Post Hemorrhage Citric Acid/Sodium Citrate (Citric Acid/Sodium Citrate Solution 30 Ml Cup) 30 ml PO ONETIME ONE Stop: 08/29/21 18:39 Dexamethasone (Dexamethasone 4 Mg/Ml 5 Ml Mdv) Confirm Administered Dose 20 mg .ROUTE .STK-MED ONE Stop: 08/29/21 19:59 Ephedrine Sulfate (Ephedrine 50 Mg/Ml Sdv) 10 mg IVPUSH Q1M PRN PRN Reason: Hypotension Ephedrine Sulfate (Ephedrine 50 Mg/Ml Sdv) Confirm Administered Dose 50 mg .ROUTE .STK-MED ONE Stop: 08/29/21 19:57 Fentanyl (Fentanyl 100 Mcg/2 Ml Sdv) Confirm Administered Dose 100 mcg .ROUTE .STK-MED ONE Stop: 08/29/21 18:43 Glycopyrrolate (Glycopyrrolate 0.2 Mg/Ml Sdv) Confirm Administered Dose 0.4 mg .ROUTE .STK-MED ONE Stop: 08/29/21 19:57 Oxytocin/Sodium Chloride (Oxytocin 30 Unit In Ns 0.9% 500 Ml Premix) 30 unit in 500 mls @ 500 mls/hr IV TITRATE [place] Tranexamic Acid 1,000 mg/ (Sodium Chloride) 110 mls @ 660 mls/hr IV ONETIME PRN PRN Reason: Bleeding Lactated Ringer's (Ringers, Lactated) 1,000 mls @ 150 mls/hr IV ASDIRECTED [place] Last Infusion: 08/29/21 06:12 Dose: 150 mls/hr Documented by: Ropivacaine (Naropin 0.2%) Confirm Administered Dose 200 mls @ as directed .ROUTE .[facility]-MED ONE Stop: 08/28/21 23:51 Oxytocin/Sodium Chloride (Oxytocin 30 Unit In Ns 0.9% 500 Ml Premix) 30 unit in 500 mls @ 2 mls/hr IV TITRATE [place]; Protocol Last Infusion: 08/29/21 18:25 Dose: 0 munits/min, 0 mls/hr Documented by: Ropivacaine (Naropin 0.2%) Confirm Administered Dose 200 mls @ as directed .ROUTE .[facility]-MED ONE Stop: 08/29/21 15:23 Ampicillin Sodium/Sulbactam (Sodium 3 gm/ Sodium Chloride) 100 mls @ 200 mls/hr IV ONETIME ONE Stop: 08/29/21 16:14 Last Admin: 08/29/21 16:15 Dose: 200 mls/hr Documented by: Ampicillin Sodium/Sulbactam (Sodium 1.5 gm/ Sodium Chloride) 50 mls @ 150 mls/hr IV Q6H [facility] Lactated Ringer's (Ringers, Lactated) 1,000 mls @ 500 mls/hr IV BOLUS [place] Oxytocin/Sodium Chloride (Oxytocin 30 Unit In Ns 0.9% 500 Ml Premix) 30 unit in 500 mls @ 250 mls/hr IV TITRATE [place] Cefazolin Sodium/Dextrose 2 gm (/ Premix) 50 mls @ 100 mls/hr IV ONETIME ONE Stop: 08/29/21 19:07 Azithromycin 1,000 mg/ Sodium (Chloride) 250 mls @ 250 mls/hr IV ONETIME ONE Stop: 08/29/21 19:37 Last Admin: 08/29/21 18:59 Dose: 250 mls/hr Documented by: Cefazolin Sodium/Dextrose (Ancef 2 Gm/50 Ml) Confirm Administered Dose 50 mls @ as directed .ROUTE .STK-MED ONE Stop: 08/29/21 19:57 Ampicillin Sodium/Sulbactam (Sodium 1.5 gm/ Sodium Chloride) 50 mls @ 150 mls/hr IV Q6H [place] Stop: 08/30/21 16:19 Last Admin: 08/30/21 16:25 Dose: 150 mls/hr Documented by: Ketorolac Tromethamine (Ketorolac 30 Mg/Ml Sdv) 30 mg IVPUSH Q6H [place] Stop: 08/30/21 20:46 Last Admin: 08/30/21 22:52 Dose: 30 mg Documented by: Lidocaine (Lidocaine 2% 5 Ml Sdv) Confirm Administered Dose 5 ml .ROUTE .STK-MED ONE Stop: 08/29/21 19:57 Lidocaine HCl (Lidocaine 1% 50 Ml Mdv) 50 ml INJECT ONETIME PRN PRN Reason: Laceration repair Lidocaine/Epinephrine (Lidocaine 2% With Epinephrine 1:200,000 20 Ml Sdv) Confirm Administered Dose 20 ml .ROUTE .STK-MED ONE Stop: 08/29/21 18:43 Lidocaine/Epinephrine (Lidocaine 2% With Epinephrine 1:200,000 20 Ml Sdv) Confirm Administered Dose 20 ml .ROUTE .STK-MED ONE Stop: 08/29/21 19:57 Methylergonovine Maleate (Methylergonovine 0.2 Mg/1 Ml Amp) 0.2 mg IM ASDIRECTED PRN PRN Reason: Post Hemorrhage Metoclopramide HCl (Metoclopramide 10 Mg/2 Ml Sdv) Confirm Administered Dose 10 mg .ROUTE .STK-MED ONE Stop: 08/29/21 19:59 Miscellaneous Medication (Phenylephrine Hcl In 0.9% Nacl 1 Mg/10 Ml Syringe) 0.1 mg IVPUSH Q1M PRN PRN Reason: Hypotension Miscellaneous Medication (Phenylephrine Hcl In 0.9% Nacl 1 Mg/10 Ml Syringe) Confirm Administered Dose 1 mg .ROUTE .STK-MED ONE Stop: 08/29/21 19:57 Misoprostol (Misoprostol 200 Mcg Tab) 200 mcg PO ONETIME PRN PRN Reason: Post Hemorrhage Nalbuphine HCl (Nalbuphine 10 Mg/1 Ml Vial) 10 mg IVPUSH Q1H PRN PRN Reason: Pain (severe 7-10) Octyl Cyanoacrylate (Octyl 2-Cyanoacrylate 1 Tube) Confirm Administered Dose 1 applic .ROUTE .STK-MED ONE Stop: 08/29/21 19:11 Ondansetron HCl (Ondansetron 4 Mg/2 Ml Sdv) 4 mg IVPUSH Q4H PRN PRN Reason: Nausea/Vomiting Ondansetron HCl (Ondansetron 4 Mg/2 Ml Sdv) Confirm Administered Dose 4 mg .ROUTE .STK-MED ONE Stop: 08/29/21 19:57 Ropivacaine (Ropivacaine/Pf 400 Mg/200 Ml Pipeline Integrity Engineer) 400 mg EPIDUR ASDIRECTED [place] Sodium Chloride (Sodium Chloride 0.9% 10 Ml Syringe) 10 ml FLUSH ASDIRECTED PRN PRN Reason: Keep Vein Open Sodium Chloride (Sodium Chloride 0.9% 2.5 Ml Syringe) 2.5 ml FLUSH ASDIRECTED PRN PRN Reason: Keep Vein Open Sodium Chloride (Sodium Chloride 0.9% 10 Ml Sdv) 10 ml IV ASDIRECTED PRN PRN Reason: IV Use Sterile Water (Water For Irrigation,Sterile 1,000 Ml Container) 1,000 ml IRR ASDIRECTED PRN PRN Reason: delivery Terbutaline Sulfate (Terbutaline 1 Mg/Ml Sdv) Confirm Administered Dose 1 mg .ROUTE .STK-MED ONE Stop: 08/29/21 18:27 Last Admin: 08/29/21 18:30 Dose: 0.25 mg Documented by: - Interaction Infant Disposition, : NICU [place] Support Person: - Recovery Exam Fundal Tone: Firm Fundal Level: 2 Fingerbreadths Below Umbilicus Fundal Placement: Midline Lochia Amount: Scant, Small Lochia Color: Rubra/Red Perineum Description: Intact, Minimal Bruising/Swelling Episiotomy/Laceration: None Bladder Status: Voiding Urinary Elimination: Indwelling Catheter - Exam General: Alert, Oriented HEENT: Pupils Equal Lungs: Normal Respiratory Effort GI/Abdominal Exam: Soft, Non-Tender, No Distention Extremities: Non-Tender. No: No Pedal Edema (trace) Skin: Warm, Dry, Intact Wound/Incisions: Healing Well Psy/Mental Status: Alert, Normal Affect, Normal Mood - Problem List Review Problem List Initiated/Reviewed/Updated: Yes - My Orders Last 24 Hours: My Active Orders 08/31/21 04:20 Ibuprofen [Motrin] 800 mg PO Q8H PRN - Assessment Assessment:: POD#2 after primary for arrest of descent, covid positive, febrile during labor (Covid vs chorioamnionitis) Afebrile since delivery, has completed antibiotics. Asymptomatic with Covid at this time - Plan Plan:: Dismiss to home, precautions reviewed including quarantine instructions.
[2021-08-31] MEDS: Docusate Sodium 100 MG Cap PO SCH (09:54)
== END 2021-08-31 13:50 | disposition home or self-care (01) | DRG 540 ==
LOC: MW.OB 19:50 → MW.OBCHECK 19:50 → MW.OB 21:42 → MW.OBCHECK 21:42 → OBSVTOIN 08-29 19:41 → MW.OB 08-30 04:54
PROVIDERS: ADMIT Obstetrics & Gynecology; ATTEND Obstetrics & Gynecology
PROC: 10D00Z1 Extraction of Products of Conception, Low, Open Approach (ICD-10-PCS; principal; 2021-08-29)
PROC: 3E0R3BZ Introduction of Anesthetic Agent into Spinal Canal, Percutaneous Approach (ICD-10-PCS; 2021-08-29)
PROC: 00HU33Z Insertion of Infusion Device into Spinal Canal, Percutaneous Approach (ICD-10-PCS; 2021-08-29)
PROC: 8E0ZXY6 Isolation (ICD-10-PCS; 2021-08-29)
PROC: 3E0333Z Introduction of Anti-inflammatory into Peripheral Vein, Percutaneous Approach (ICD-10-PCS; 2021-08-29)
DX: O62.0 Primary inadequate contractions (principal); O48.0 Post-term pregnancy; O98.52 Other viral diseases complicating childbirth; U07.1 COVID-19; Z37.0 Single live birth; Z3A.40 40 weeks gestation of pregnancy; O36.63X0 Maternal care for excessive fetal growth, third trimester, not applicable or unspecified; O77.0 Labor and delivery complicated by meconium in amniotic fluid
CPT/HCPCS: 01967; 01968; 36415; 51702; 59025; 82803; 85014; 85018; 85027; 85460; 86592; 86850; 86900; 86901; A9270-GY; J0295; J0456; J0690; J1100; J1885; J2370; J2405; J2590; J2765; J2790; J2795; J3010; J3105; J3490; J7050; J7120; U0002

== ENCOUNTER 2021-09-01 00:19 | Emergency (ER) | payer BC ==
[2021-09-01] MEDS ORDERED: Lactated Ringers 1,000 ML IV SCH ×2 (01:00→02:45)
[2021-09-01 01:35] LABS: BLOOD UREA NITROGEN,BUN 10 mg/dL (7.0-18.0); CHLORIDE,CL 103 mmol/L (98-107); GLUCOSE RANDOM 141 mg/dL (74-106); POTASSIUM,K 3.4 mmol/L (3.5-5.1); SODIUM,NA 136 mmol/L (136-145)
[2021-09-01] MEDS ORDERED: Magnesium Oxide 400 MG Tab PO ONE (01:40)
[2021-09-01] MEDS ORDERED: Potassium Chloride 10% 20 MEQ/15 ML Soln 30 ML UD Cup PO ONE (01:41)
[2021-09-01] MEDS ORDERED: Acetaminophen 500 MG Tab PO ONE (01:45)
[2021-09-01] MEDS ORDERED: Iopamidol 755 MG/ML 500 ML Multipack Bottle IVPUSH STA (01:58)
[2021-09-01] MEDS ORDERED: Potassium Chloride 20 MEQ Tab.ER ONE (02:00)
[2021-09-01] MEDS ORDERED: Acetaminophen 500 MG Tab ONE (02:00)
[2021-09-01] MEDS ORDERED: Magnesium Oxide 400 MG Tab ONE (02:00)
[2021-09-01] MEDS ORDERED: Potassium Chloride 10% 20 MEQ/15 ML Soln 30 ML UD Cup ONE (02:07)
--- NOTE | 2021-09-01 02:56 | PCM.EKG ---
#1 Interpretation EKG Date: 09/01/21 Time: 01:00 Rhythm: NSR Rate (Beats/Min): 133 [place]: LAD-Left [place] Deviation P-Wave: Present QRS: Normal ST-T: Normal QT: Normal Comparison: NA - No Prior EKG (Sinus Tachycardia)
--- NOTE | 2021-09-01 03:00 | CT ---
INDICATION: Evaluate for pulmonary embolism. Recent section. COVID-19 positive. COMPARISON: None available TECHNIQUE: CT examination of the chest was performed with the uneventful intravenous administration of 100 cc of Isovue 370 while 1.0, 1.5, and 2.5 mm thick axial sections were obtained through the pulmonary arteries. Please note that all CT scans at this facility use dose modulation, iterative reconstruction, and/or weight-based dosing when appropriate to reduce radiation dose to as low as reasonably achievable. FINDINGS: : There is no sign of pulmonary embolism, with normal enhancement and branching of the pulmonary arteries. There are mild bilateral pleural effusions, slightly larger on the right than the left. There is moderate bilateral posterior lower lobe compressive atelectasis related to the effusions. There are mild patchy ground-glass infiltrates in the superior perihilar regions bilaterally as well as in the periphery of the upper lobes. Additional mild patchy peripheral infiltrate is seen in the right infrahilar region and in the posterior right lower lobe. The findings are typical of early COVID-19 pneumonia. There is no sign of mediastinal or hilar mass or adenopathy. The heart is normal in appearance for the patient`s age. There is age appropriate appearance of the thoracic aorta and ascending great vessels. There is no sign of the supraclavicular or axillary mass or adenopathy. The visualized superior liver, spleen, pancreas, right kidney, and adrenals are normal in appearance. There is moderate dilatation of the visualized superior left renal collecting system suggesting moderate hydronephrosis. This could be prominent parapelvic cysts however. The osseous structures are normal in appearance for the patient`s age. IMPRESSION: No sign of pulmonary embolism. Mild right greater than left pleural effusions with moderate compressive atelectasis of the posterior lung bases, right greater than left. Mild ground-glass pulmonary infiltrates in the perihilar and periphery of the upper lobes bilaterally, with milder involvement elsewhere in the chest, consistent with mild early COVID-19 pneumonia. Please note that all CT scans at this facility use dose modulation, iterative reconstruction, and/or weight-based dosing when appropriate to reduce radiation dose to as low as reasonably achievable. Dictated by Korey Haines MD @ 09/01/2021 2:59:08 AM (Electronically Signed)
--- NOTE | 2021-09-01 04:42 | EDM.PDOC ---
ED HPI GENERAL MEDICAL PROBLEM - General Chief Complaint: General Stated Complaint: SHORTNESS OF BREATH, COVID, RECENT Time Seen by Provider: 09/01/21 00:33 - History of Present Illness INITIAL COMMENTS - FREE TEXT/NARRATIVE: CHIEF COMPLAINT(S): Fever HISTORY OF PRESENT ILLNESS: This is a 25-year-old woman in with a recent section approximately 2 days ago who is COVID-19 positive who comes to the emergency department with a chief complaint of fever. The patient states that on discharge today she was told that if she had a fever of greater than 101 to call the office. She states that she took her temperature at home and is 102.3 so she decided to call and they told her to come to the emergency department. She states that she had a section and she is Covid positive. She states that she has not had any increased breathing and her lochia is decreasing. She denies any increased abdominal pain and states that she thinks her incision is doing well. She states that she does have a nonpro ductive cough and some shortness of breath but denies any other symptoms. She denies any chest pain. She states that she has been tolerating p.o. without any difficulty and has been using Tylenol for pain relief. She denies any other symptoms REVIEW OF SYSTEMS: Constitutional: Positive for fever. Eyes: Denies eye pain Ears, Nose, Mouth, & Throat: Denies earache Cardiovascular: Denies chest pain Respiratory: Positive for shortness of breath and nonproductive cough Gastrointestinal: Denies Nausea, vomiting, diarrhea, hematochezia. Genitourinary: Positive for decreasing lochia denies hematuria, dysuria, vaginal discharge Skin:Denies a rash MSK: Denies joint pain Neurological: Denies blurred vision Psychiatric: Denies depression PAST MEDICAL HISTORY: As per history of present illness and as reviewed below otherwise noncontributory. SURGICAL HISTORY: As per history of present illness and as reviewed below otherwise noncontributory. SOCIAL HISTORY: As per history of present illness and as reviewed below otherwise noncontributory. FAMILY HISTORY: As per history of present illness and as reviewed below otherwise noncontributory. EXAMINATION OF ORGAN SYSTEMS/BODY AREAS: Constitutional: Heart rate 142, blood pressure 130/76, respiratory rate 18 with an oxygen saturation 94% on room air. Temperature 37.8 temporal General: Young woman who does not appear to be in acute distress Psychiatric: Appropriate mood and affect. Eyes: No scleral icterus or conjunctival erythema ENMT: Moist mucous membranes. No pharyngeal erythema Cardiovascular: Tachycardic but regular. No gallops, murmurs, or rubs. Bilateral upper extremity pulses symmetric and intact. No peripheral edema. No JVD. Respiratory: Lungs clear to auscultation bilaterally. No wheezes, rales, or rhonchi. Gastrointestinal: Soft, non-tender, non-distended. Normoactive bowel sounds there is a low transverse skin incision which appears to be well-healing without any purulent drainage or evidence of any postsurgical abnormality Genitourinary: No suprapubic tenderness Musculoskeletal: Normal range of motion. Skin: No lesions or abrasions. Neurological: Alert, GCS 15 MEDICAL DECISION MAKING AND COURSE IN THE ED WITH INTERPRETATION/REVIEW OF DIAGNOSTIC STUDIES: This is a 25-year-old man with a recent section and COVID-19 positivity who was recently discharged today who comes to the emergency department with fever and tachycardia who is borderline hypoxic. At this time the patient is known Covid positive and given that the patient is lochia is decreasing I do not suspect that there is any endometritis or increased hemorrhage from her post . Given the tachycardia we will provide the patient with 1 L of lactated Ringer's bolus and provided with Tylenol for her fever. Given the COVID-19, recent surgery and recent she is high risk for pulmonary embolism. Obtain CT angiogram of the chest to evaluate. Will obtain CBC, CMP, troponin. Cardiac monitoring at this time did reveal sinus tachycardia and pulse oximetry with good waveform was 94% on room air. The patient was amenable to this plan. EKG was obtained which did not reveal any acute signs of ischemia. Differential at this time includes COVID-19, pulmonary embolism, uterine hemorrhage. Laboratory: CBC reveals a normocytic anemia with a hemoglobin of 8.8 hematocrit of 25.9 which is decreased just a little bit from prior. No evidence of leukocytosis. CMP reveals hypokalemia at 3.4, hyperglycemia at 141, hypomagnesemia 1.4, mild elevation in AST of 45 and a alkaline phosphatase of 132. Troponin is negative. After labs I did provide the patient with magnesium for potassium by mouth for supplementation. The radiological images were viewed by myself along with reading the report from the radiologist. CT angiogram of the chest does not reveal any evidence of acute pulmonary embolism. There is evidence of bilateral interstitial opacities concerning for COVID-19 pneumonia. There is mild right greater than left pleural effusions with some compressive atelectasis at the lung bases. After imaging the patient's heart rate had improved and her hypoxia continued to remain stable. At this time it is uncertain as to what is causing the continued tachycardia given the patient is tolerating p.o. and has had multiple fluid boluses. I did contact her latex caster Dr. Rain and at this time endometritis or ultrasound imaging is not indicated. She states that the patient can be discharged and can follow-up outpatient. I did discuss the results with the patient and she was amenable to discharge at this time. She was given strict return precautions. DISPOSITION: The patient was discharged home in stable condition. The patient will follow up with primary care physician/OB in 3 to 5 days CONDITION: Fair PROCEDURES: None FINAL IMPRESSION(S)/DIAGNOSES: 1. Acute COVID-19 2. Acute tachycardia Edinson Koo M.D. - Related Data Allergies Allergy/AdvReac Type Severity Reaction Status Date / Time No Known Allergies Allergy Verified 09/01/21 00:37 Home Meds: Home Meds Omeprazole Magnesium [Prilosec Otc] 1 tab PO DAILY 08/28/21 [History] Pnv No.95/Ferrous Fum/Folic AC [ Vitamins Tablet] 1 tab PO DAILY 08/28/21 [History] Past Medical History - Past Health History Medical/Surgical History: Denies Medical/Surgical History [employer] History: Reports: - Infectious Disease History Infectious Disease History: Reports: Chicken Pox Social & Family History - Family History Family Medical History: No Pertinent Family History - Tobacco Use Tobacco Use Status *Q: Never Tobacco User - Caffeine Use Caffeine Use: Reports: None - Recreational Drug Use Recreational Drug Use: No ED ROS GENERAL - Review of Systems Review Of Systems: See Below ED EXAM, GENERAL - Physical Exam Exam: See Below Course - Vital Signs Last Recorded V/S: Last Vital Signs Temp 37.2 C 09/01/21 02:34 Pulse 103 H 09/01/21 05:03 Resp 19 09/01/21 05:03 BP 118/61 09/01/21 05:03 Pulse Ox 94 L 09/01/21 05:03 - Orders/Labs/Meds Labs: Laboratory Tests 09/01/21 09/01/21 Range/Units 00:55 00:55 WBC 6.58 (4.0-11.0) K/uL RBC 3.06 L (4.30-5.90) M/uL Hgb 8.8 L (12.0-16.0) g/dL Hct 25.9 L (36.0-46.0) % MCV 84.6 (80.0-98.0) fL MCH 28.8 (27.0-32.0) pg MCHC 34.0 (31.0-37.0) g/dL RDW Std Deviation 40.9 (28.0-62.0) fl RDW Coeff of Kwasi 13 (11.0-15.0) % Plt Count 248 (150-400) K/uL MPV 9.20 (7.40-12.00) fL Neut % (Auto) 80.7 H (48.0-80.0) % Lymph % (Auto) 9.9 L (16.0-40.0) % Taylor % (Auto) 9.4 (0.0-15.0) % Eos % (Auto) 0.0 (0.0-7.0) % Baso % (Auto) 0.0 (0.0-1.5) % Neut # (Auto) 5.3 (1.4-5.7) K/uL Lymph # (Auto) 0.7 (0.6-2.4) K/uL Taylor # (Auto) 0.6 (0.0-0.8) K/uL Eos # (Auto) 0.0 (0.0-0.7) K/uL Baso # (Auto) 0.0 (0.0-0.1) K/uL Nucleated RBC % 0.0 /100WBC Nucleated RBCs # 0 K/uL Sodium 136 (136-145) mmol/L Potassium 3.4 L (3.5-5.1) mmol/L Chloride 103 (98-107) mmol/L Carbon Dioxide 22.0 (21.0-32.0) mmol/L BUN 10 (7.0-18.0) mg/dL Creatinine 0.7 (0.6-1.0) mg/dL Est Cr Clr Drug Dosing 115.01 mL/min Estimated GFR (MDRD) > 60.0 ml/min Glucose 141 H (74-106) mg/dL Calcium 7.7 L (8.5-10.1) mg/dL Magnesium 1.4 L (1.8-2.4) mg/dL Total Bilirubin 0.1 L (0.2-1.0) mg/dL AST 45 H (15-37) IU/L ALT 28 (14-63) IU/L Alkaline Phosphatase 132 H (46-116) U/L Troponin I < 0.050 (0.000-0.056) ng/mL Total Protein 5.3 L (6.4-8.2) g/dL Albumin 1.5 L (3.4-5.0) g/dL Globulin 3.8 (2.6-4.0) g/dL Albumin/Globulin Ratio 0.4 L (0.9-1.6) Meds: Medications Discontinued Medications Generic Name Dose Route Start Last Admin Trade Name Freq PRN Reason Stop Dose Admin Acetaminophen 1,000 mg 09/01/21 01:45 09/01/21 02:04 Acetaminophen 500 Mg Tab PO 09/01/21 01:46 1,000 mg ONETIME ONE Administration Acetaminophen Confirm 09/01/21 02:00 09/01/21 04:57 Acetaminophen 500 Mg Tab Administered 09/01/21 02:01 Not Given Dose 1,000 mg .ROUTE .STK-MED ONE Lactated Ringer's 1,000 mls @ 999 mls/hr 09/01/21 01:00 09/01/21 01:06 Ringers, Lactated IV 999 mls/hr ASDIRECTED [place] Administration Lactated Ringer's 1,000 mls @ 999 mls/hr 09/01/21 02:45 09/01/21 02:45 Ringers, Lactated IV 999 mls/hr ASDIRECTED [place] Administration Iopamidol 100 ml 09/01/21 01:58 09/01/21 02:06 Iopamidol 755 Mg/Ml 500 Ml Multipack Bottle IVPUSH 09/01/21 01:59 100 ml ONETIME STA Administration Magnesium Oxide 800 mg 09/01/21 01:40 09/01/21 02:03 Magnesium Oxide 400 Mg Tab PO 09/01/21 01:41 800 mg ONETIME ONE Administration Magnesium Oxide Confirm 09/01/21 02:00 09/01/21 04:57 Magnesium Oxide 400 Mg Tab Administered 09/01/21 02:01 Not Given Dose 800 mg .ROUTE .STK-MED ONE Potassium Chloride 40 meq 09/01/21 01:41 09/01/21 02:09 Potassium Chloride 10% 20 Meq/15 Ml Soln 30 Ml Ud Cup PO 09/01/21 01:42 40 meq ONETIME ONE Administration Potassium Chloride Confirm 09/01/21 02:00 09/01/21 04:57 Potassium Chloride 20 Meq Tab.Er Administered 09/01/21 02:01 Not Given Dose 40 meq .ROUTE .STK-MED ONE Potassium Chloride Confirm 09/01/21 02:07 09/01/21 04:56 Potassium Chloride 10% 20 Meq/15 Ml Soln 30 Ml Ud Cup Administered 09/01/21 02:08 Not Given Dose 40 meq .ROUTE .STK-MED ONE Departure - Departure Time of Disposition: 04:41 Disposition: Home, Self-Care 01 Condition: Fair Clinical Impression: COVID, Tachycardia - Discharge Information *PRESCRIPTION DRUG MONITORING PROGRAM REVIEWED*: No *COPY OF PRESCRIPTION DRUG MONITORING REPORT IN PATIENT JOSE: No Instructions: 10 Things You Can Do to Manage Your COVID-19 Symptoms at Home - CDC (05/18/2021), Symptoms of COVID-19 - CDC (12/25/2020) Referrals: PCP,None [Primary Care Provider] - Forms: ED Department Discharge Additional Instructions: Your evaluated today on an emergent basis. At this time our work-up did not reveal any clots in your lungs and did reveal evidence of COVID-19 pneumonia with some small fluid at the bottom of your lungs. Your labs did not suggest a bacterial infection and given that you do not have pain or vaginal discharge infection of your uterus is unlikely. I did discuss this with your latex caster. It is important that you maintain hydration while at home with Pedialyte, Gatorade, soups. Please use Tylenol and Motrin for pain and fever relief. I did offer you the monoclonal antibody however at this time you did not want it. You do have 3 more days if you decide to change her mind to receive this infusion. I would contact primary care physician or return to the emergency department. If you have any worsening symptoms such as worsening fever, vaginal discharge, bleeding or you are not feeling well please return to the emergency department. You should take acetaminophen 500-1000 mg every 6 hours as needed for fever and muscle aches. Please drink plenty of fluids and get plenty of rest over the next several days. We would recommend that she get a pulse oximeter from the pharmacy to keep an eye on your oxygen level. If your oxygen level drops below 91%, you should return to the ED for evaluation. You should return to the ER sooner if you start having any symptoms of shortness of breath or any other new or concerning symptoms. 1. Your COVID-19 screening is positive. That means you do have the coronavirus and you are considered contagious. Your vital signs and oxygen saturation are well enough that you were able to monitor your symptoms at home. Continue to monitor for trouble breathing, new confusion or inability to arouse, bluish lips or face or any of the other symptoms we discussed -if this occurs please return to the emergency room. 2. Please self quarantine over the next 10 days. Inform any persons that you have been in contact with since you started becoming symptomatic that you have tested positive; they should be made aware and take the appropriate steps as needed. 3. May alternate Tylenol and ibuprofen as needed for pain and fever management. 4. The [facility] department will be calling you and following up with you. The [place] COVID 19 Hotline phone number , They are open Friday - ay 7am - 7pm. Follow up with your primary care provider for re-evaluation and re-testing after the 10 day quarantine and discuss when you should be seen. [facility] [address] [place] [id number] [facility] [address] [place] [id number] [facility] [address] [place] [address] [facility] [address] [place] [id number] The patient is informed of any results of their evaluation and diagnostic workup and all questions are answered. They are given discharge instructions and return precautions. The patient is stable for discharge. The patient states they understand and agree with the plan and that they will return if their symptoms get worse or if they have any new concerns. The following information is given to patients seen in the emergency department who are being discharged to home. This information is to outline your options for follow-up care. We provide all patients seen in our emergency department with a follow-up referral. The need for follow-up, as well as the timing and circumstances, are variable depending upon the specifics of your emergency department visit. If you don't have a primary care physician on staff, we will provide you with a referral. We always advise you to contact your personal physician following an emergency department visit to inform them of the circumstance of the visit and for follow-up with them and/or the need for any referrals to a consulting specialist. The emergency department will also refer you to a specialist when appropriate. This referral assures that you have the opportunity for follow-up care with a specialist. All of these measure are taken in an effort to provide you with optimal care, which includes your follow-up. Under all circumstances we always encourage you to contact your private physician who remains a resource for coordinating your care. When calling for follow-up care, please make the office aware that this follow-up is from your recent emergency room visit. If for any reason you are refused follow-up, please contact the [facility] Emergency Department at and asked to speak to the emergency department charge nurse. Sepsis Event Note (ED) - Evaluation Sepsis Screening Result: No Definite Risk
== END 2021-09-01 05:05 | disposition home or self-care (01) ==
LOC: MW.ED 00:19
DX: U07.1 COVID-19 (principal); R00.0 Tachycardia, unspecified
CPT/HCPCS: 36415; 71275; 80053; 83735; 84484; 85025; 93005; 99285; A9270; J7120; Q9967

== ENCOUNTER 2021-09-03 17:23 | Inpatient (IN) | payer BC ==
[2021-09-03] MEDS ORDERED: Sodium Chloride 0.9% 2.5 ML Syringe FLUSH PRN (17:41)
[2021-09-03] MEDS ORDERED: Sodium Chloride 0.9% 10 ML Syringe FLUSH PRN (17:41)
[2021-09-03] MEDS ORDERED: Dexamethasone 10 MG/ML SDV IVPUSH ONE (17:42)
--- NOTE | 2021-09-03 17:45 | EDM.PDOC ---
<Paddy Crowe - Last Filed: 09/03/21 18:54> ED HPI GENERAL MEDICAL PROBLEM - General Chief Complaint: Respiratory Problem Stated Complaint: SOB Time Seen by Provider: 09/03/21 17:28 - History of Present Illness INITIAL COMMENTS - FREE TEXT/NARRATIVE: 25-year-old female who tested positive for COVID-19 on August 28 presenting with worsening shortness of breath. Patient has had fever chills fatigue and some degree of cough and shortness of breath for the last few days. She was seen here on September 01 had chest x-ray with bilateral pleural effusions and findings consistent with Covid pneumonia she was negative for PE at that visit. She has had a gradual worsening of her symptoms became more suddenly worse today associated with profound shortness of breath. Ongoing chills and fevers and c ough as well. No other medical problems. Patient did recently have a she has lower abdominal pain with coughing but not really at any other time and her lochia is continue to improve. 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: - Infectious Disease History Infectious Disease History: Reports: Chicken Pox - Past Surgical History Female Surgical History: Reports: Section Social & Family History - Family History Family Medical History: No Pertinent Family History - Tobacco Use Tobacco Use Status *Q: Former Tobacco User Years of Tobacco use: 6 Packs/Tins Daily: 0.5 Used Tobacco, but Quit: Yes Month/Year Tobacco Last Used: 11/2020 - Caffeine Use Caffeine Use: Reports: Coffee - Recreational Drug Use Recreational Drug Use: No ED ROS GENERAL - Review of Systems Review Of Systems: See Below Free Text/Narrative/Comment: General: Per HPI Skin: No rash. Eyes: No vision problems. ENT: No sore throat. Neck: No neck stiffness. Respiratory: Per HPI Cardiac: Per HPI Gastrointestinal: No nausea, vomiting or abdominal pain. Musculoskeletal: Per HPI Neurologic: No headache. ED EXAM, GENERAL - Physical Exam Exam: See Below Free Text/Narrative:: General Appearance: No acute distress, appears comfortable Skin: No rash HEENT: Normocephalic/atraumatic, sclera anicteric, mucous membranes moist Neck: Normal range of motion Chest and Lungs: Diminished breath sounds at bilateral bases to the level of the inferior scapula rhonchi and crackles superior to this Cardiovascular: Tachycardic rate, regular rhythm, intact distal perfusion Abdomen: Soft, non-tender Back: Normal Musculoskeletal: No edema or tenderness Neurologic: Awake, alert, no obvious deficits, moving all extremities Psychiatric: Appropriate, cooperative #1 Interpretation EKG Date: 09/03/21 Time: 17:58 EKG Interpretation Comments: Sinus tachycardia rate of 122 normal axis and intervals no acute ischemia low voltage consistent with body habitus Departure - Departure Disposition: Admitted As Inpatient 66 Clinical Impression: Hypoxia, COVID-19 - Discharge Information Referrals: PCP,None [Primary Care Provider] - Forms: ED Department Discharge Sepsis Event Note (ED) - Evaluation Sepsis Screening Result: No Definite Risk - Assessment/Plan Assessment:: 25-year-old female presenting with profound hypoxia room air saturation was in the 60s. Patient was satting 89-91 on nonrebreather she was transitioned to heated high flow nasal cannula and is now saturating in the mid to upper 90s. She is on an FiO2 of 80%. Certainly worsening Covid pneumonia is the most likely explanation for her symptoms. However given the pleural effusions on the prior CT heart failure needs to be considered an EKG troponin and BNP are pending. Given the sudden and profound worsening we need to reconsider PE as well and so CT pulmonary angiography will be performed. CBC, CMP, lactic acid as well as patient does meet sepsis criteria. That said she has known proven COVID-19 pneumonia and I believe this is the cause of her sepsis picture and I would not cover with empiric antibiotics at this point. IV fluids will be started given her tachycardia but we will need to be careful with this given her COVID-19 pneumonia. Pt signed out to Dr. Chung pending labs, imaging results and final disposition. <Skinny Chung - Last Filed: 09/03/21 20:50> Course - Vital Signs Last Recorded V/S: Last Vital Signs Temp 97.2 F 09/03/21 17:31 Pulse 116 H 09/03/21 18:29 Resp 16 09/03/21 17:31 BP 130/66 09/03/21 18:29 Pulse Ox 96 09/03/21 18:29 - Orders/Labs/Meds Orders: Active Orders 24 hr Category Date Time Status Patient Status [ADT] Routine ADT 09/03/21 20:49 Ordered CRP [C-REACTIVE PROTEIN] [CHEM] Stat Lab 09/03/21 17:50 Received Lactated Ringers [Ringers, Lactated] 1,000 ml Med 09/03/21 18:00 Active IV ASDIRECTED Sodium Chloride 0.9% [Saline Flush] Med 09/03/21 17:41 Active 10 ml FLUSH ASDIRECTED PRN Sodium Chloride 0.9% [Saline Flush] Med 09/03/21 17:41 Active 2.5 ml FLUSH ASDIRECTED PRN Saline Lock Insert [OM.PC] Stat Oth 09/03/21 17:41 Ordered Medication Orders Lactated Ringer's (Ringers, Lactated) 1,000 mls @ 999 mls/hr IV ASDIRECTED [place] Last Admin: 09/03/21 18:00 Dose: 999 mls/hr Documented by: NILAM Sodium Chloride (Sodium Chloride 0.9% 10 Ml Syringe) 10 ml FLUSH ASDIRECTED PRN PRN Reason: Keep Vein Open Last Admin: 09/03/21 18:01 Dose: 10 ml Documented by: NILAM Sodium Chloride (Sodium Chloride 0.9% 2.5 Ml Syringe) 2.5 ml FLUSH ASDIRECTED PRN PRN Reason: Keep Vein Open Last Admin: 09/03/21 18:00 Dose: 2.5 ml Documented by: NILAM Labs: Laboratory Tests 09/03/21 09/03/21 09/03/21 Range/Units 17:50 17:50 17:50 WBC 6.36 (4.0-11.0) K/uL RBC 3.72 L (4.30-5.90) M/uL Hgb 10.5 L (12.0-16.0) g/dL Hct 31.6 L (36.0-46.0) % MCV 84.9 (80.0-98.0) fL MCH 28.2 (27.0-32.0) pg MCHC 33.2 (31.0-37.0) g/dL RDW Std Deviation 40.4 (28.0-62.0) fl RDW Coeff of Kwasi 13 (11.0-15.0) % Plt Count 321 (150-400) K/uL MPV 9.30 (7.40-12.00) fL Neut % (Auto) 74.5 (48.0-80.0) % Lymph % (Auto) 19.7 (16.0-40.0) % [place] % (Auto) 5.8 (0.0-15.0) % Eos % (Auto) 0.0 (0.0-7.0) % Baso % (Auto) 0.0 (0.0-1.5) % Neut # (Auto) 4.7 (1.4-5.7) K/uL Lymph # (Auto) 1.3 (0.6-2.4) K/uL [place] # (Auto) 0.4 (0.0-0.8) K/uL Eos # (Auto) 0.0 (0.0-0.7) K/uL Baso # (Auto) 0.0 (0.0-0.1) K/uL Nucleated RBC % 0.0 /100WBC Nucleated RBCs # 0 K/uL Sodium 142 (136-145) mmol/L Potassium 3.3 L (3.5-5.1) mmol/L Chloride 106 (98-107) mmol/L Carbon Dioxide 23.8 (21.0-32.0) mmol/L BUN 6 L (7.0-18.0) mg/dL Creatinine 0.7 (0.6-1.0) mg/dL Est Cr Clr Drug Dosing 115.01 mL/min Estimated GFR (MDRD) > 60.0 ml/min Glucose 96 (74-106) mg/dL Lactic Acid (0.4-2.0) mmol/L Calcium 8.3 L (8.5-10.1) mg/dL Magnesium 1.9 (1.8-2.4) mg/dL Total Bilirubin 0.2 (0.2-1.0) mg/dL AST 50 H (15-37) IU/L ALT 43 (14-63) IU/L Alkaline Phosphatase 127 H (46-116) U/L Troponin I < 0.050 (0.000-0.056) ng/mL B-Natriuretic Peptide 31 (<100) PG/ML Total Protein 6.4 (6.4-8.2) g/dL Albumin 1.9 L (3.4-5.0) g/dL Globulin 4.5 H (2.6-4.0) g/dL Albumin/Globulin Ratio 0.4 L (0.9-1.6) 09/03/21 Range/Units 18:00 WBC (4.0-11.0) K/uL RBC (4.30-5.90) M/uL Hgb (12.0-16.0) g/dL Hct (36.0-46.0) % MCV (80.0-98.0) fL MCH (27.0-32.0) pg MCHC (31.0-37.0) g/dL RDW Std Deviation (28.0-62.0) fl RDW Coeff of Kwasi (11.0-15.0) % Plt Count (150-400) K/uL MPV (7.40-12.00) fL Neut % (Auto) (48.0-80.0) % Lymph % (Auto) (16.0-40.0) % [place] % (Auto) (0.0-15.0) % Eos % (Auto) (0.0-7.0) % Baso % (Auto) (0.0-1.5) % Neut # (Auto) (1.4-5.7) K/uL Lymph # (Auto) (0.6-2.4) K/uL [place] # (Auto) (0.0-0.8) K/uL Eos # (Auto) (0.0-0.7) K/uL Baso # (Auto) (0.0-0.1) K/uL Nucleated RBC % /100WBC Nucleated RBCs # K/uL Sodium (136-145) mmol/L Potassium (3.5-5.1) mmol/L Chloride (98-107) mmol/L Carbon Dioxide (21.0-32.0) mmol/L BUN (7.0-18.0) mg/dL Creatinine (0.6-1.0) mg/dL Est Cr Clr Drug Dosing mL/min Estimated GFR (MDRD) ml/min Glucose (74-106) mg/dL Lactic Acid 0.7 (0.4-2.0) mmol/L Calcium (8.5-10.1) mg/dL Magnesium (1.8-2.4) mg/dL Total Bilirubin (0.2-1.0) mg/dL AST (15-37) IU/L ALT (14-63) IU/L Alkaline Phosphatase (46-116) U/L Troponin I (0.000-0.056) ng/mL B-Natriuretic Peptide (<100) PG/ML Total Protein (6.4-8.2) g/dL Albumin (3.4-5.0) g/dL Globulin (2.6-4.0) g/dL Albumin/Globulin Ratio (0.9-1.6) Meds: Medications Generic Name Dose Route Start Last Admin Trade Name Freq PRN Reason Stop Dose Admin Lactated Ringer's 1,000 mls @ 999 mls/hr 09/03/21 18:00 09/03/21 18:00 Ringers, Lactated IV 999 mls/hr ASDIRECTED [place] Administration Sodium Chloride 10 ml 09/03/21 17:41 09/03/21 18:01 Sodium Chloride 0.9% 10 Ml Syringe FLUSH 10 ml ASDIRECTED PRN Administration Keep Vein Open Sodium Chloride 2.5 ml 09/03/21 17:41 09/03/21 18:00 Sodium Chloride 0.9% 2.5 Ml Syringe FLUSH 2.5 ml ASDIRECTED PRN Administration Keep Vein Open Discontinued Medications Generic Name Dose Route Start Last Admin Trade Name Freq PRN Reason Stop Dose Admin Dexamethasone 6 mg 09/03/21 17:42 09/03/21 18:01 Dexamethasone 10 Mg/Ml Sdv IVPUSH 09/03/21 17:43 6 mg ONETIME ONE Administration Remdesivir 200 mg/ Sodium 250 mls @ 250 mls/hr 09/03/21 20:43 Chloride IV 09/03/21 20:44 ONETIME ONE Iopamidol 100 ml 09/03/21 18:52 09/03/21 18:52 Iopamidol 755 Mg/Ml 500 Ml Multipack Bottle IVPUSH 09/03/21 18:53 100 ml ONETIME STA Administration - Re-Assessments/Exams Free Text/Narrative Re-Assessment/Exam: 09/03/21 20:49 Patient remains on high flow looks comfortable and stable. Patient will be admitted to the hospital and started on adefovir. Departure - Departure Time of Disposition: 20:50 Condition: Good - Discharge Information *PRESCRIPTION DRUG MONITORING PROGRAM REVIEWED*: Not Applicable *COPY OF PRESCRIPTION DRUG MONITORING REPORT IN PATIENT JOSE: Not Applicable Critical Care Note - Critical Care Note Total Time (mins): 45 Comments: Critical Care Procedure Note Authorized and Performed by: Dr. Chung Total critical care time: Approximately Due to a high probability of clinically significant, life threatening deterioration, the patient required my highest level of preparedness to intervene emergently and I personally spent this critical care time directly and personally managing the patient. This critical care time included obtaining a history; examining the patient; pulse oximetry; ordering and review of studies; arranging urgent treatment with development of a management plan; evaluation of patient's response to treatment; frequent reassessment; and, discussions with other providers. This critical care time was performed to assess and manage the high probability of imminent, life-threatening deterioration that could result in multi-organ failure. It was exclusive of separately billable procedures and treating other patients and teaching time. Sepsis Event Note (ED) - Focused Exam Vital Signs: Vital Signs Temp Pulse Resp BP Pulse Ox Pulse Ox 09/03/21 18:29 116 H 130/66 96 09/03/21 17:59 124 H 129/69 95 09/03/21 17:48 96 09/03/21 17:31 97.2 F 114 H 16 131/74 92 L - My Orders Last 24 Hours: My Active Orders 09/03/21 17:50 CRP [C-REACTIVE PROTEIN] [CHEM] Stat 09/03/21 20:49 Patient Status [ADT] Routine - Assessment/Plan Last 24 Hours: My Active Orders 09/03/21 17:50 CRP [C-REACTIVE PROTEIN] [CHEM] Stat 09/03/21 20:49 Patient Status [ADT] Routine
[2021-09-03] MEDS ORDERED: Lactated Ringers 1,000 ML IV SCH (18:00)
[2021-09-03 18:30] LABS: BLOOD UREA NITROGEN,BUN 6 mg/dL (7.0-18.0); CARBON DIOXIDE,CO2 23.8 mmol/L (21.0-32.0); CHLORIDE,CL 106 mmol/L (98-107); GLUCOSE RANDOM 96 mg/dL (74-106); POTASSIUM,K 3.3 mmol/L (3.5-5.1); SODIUM,NA 142 mmol/L (136-145)
[2021-09-03] MEDS ORDERED: Iopamidol 755 MG/ML 500 ML Multipack Bottle IVPUSH STA (18:52)
--- NOTE | 2021-09-03 20:38 | CT ---
INDICATION: Shortness of breath, known COVID, sudden dramatic worsening in hypoxia, recent delivery TECHNIQUE: CT chest PE was acquired with 100 mL Isovue 370 IV contrast. COMPARISON: 09/01/2021 FINDINGS: Heart and vasculature: Contrast opacification of the pulmonary arterial tree is adequate. No sign of pulmonary embolism. Heart size is normal. Thoracic aorta and pulmonary artery are normal in caliber. Lungs and pleural: Progressive bilateral perihilar, bilateral upper lobe, and bilateral lower lobe, and middle lobe and lingular ground-glass opacities/infiltrates consistent with COVID-19 disease/pneumonia. Slightly increased bilateral pleural fluid collections and bibasilar atelectasis. No pneumothorax. Lymph nodes/mediastinum: No mediastinal, hilar, or axillary adenopathy. Thyroid gland is normal. Chest wall: No masses. Upper abdomen: Distended gallbladder, otherwise normal. Bones: Unremarkable for age. IMPRESSION: 1. No CT evidence of pulmonary embolism. 2. Progressive bilateral ground-glass opacities in all pulmonary lobes, compatible with COVID-19 pneumonia/disease. In addition, slightly progressed bilateral pleural fluid collections and bibasilar atelectasis. Please note that all CT scans at this facility use dose modulation, iterative reconstruction, and/or weight-based dosing when appropriate to reduce radiation dose to as low as reasonably achievable. Dictated by Venu Warner MD @ 09/03/2021 8:37:47 PM (Electronically Signed)
[2021-09-03] MEDS ORDERED: REMDESIVIR 200 MG in Sodium Chloride 0.9% 250 ML IV ONE (20:43)
[2021-09-03] MEDS ORDERED: Ondansetron 4 MG/2 ML SDV IVPUSH PRN (21:38)
[2021-09-03] MEDS ORDERED: Acetaminophen 325 MG Tab PO PRN (21:38)
--- NOTE | 2021-09-03 21:44 | PCM.HP.2 ---
H&P History of Present Illness - General Date of Service: 09/04/21 Admit Problem/Dx: Admission Diagnosis/Problem Admission Diagnosis/Problem Hypoxia - History of Present Illness Initial Comments - Free Text/Narative: 25-year-old female status post recent section a week back, who tested positive for COVID-19 on August 28 presenting with worsening shortness of breath That has been worsening last few days. She was seen here on September 01 had chest x-ray with bilateral pleural effusions and findings consistent with Covid pneumonia she was negative for PE at that visit. She has had a gradual worsening of her symptoms became more suddenly worse today associated with profound shortness of breath. Ongoing chills and fevers and cough as well. Patient states that she checked her oxygen at home and she was saturating 70s. In the ER patient was found saturating in the 60s to low 70s on room air, pa mike was satting 89-91 on nonrebreather she was transitioned to heated high flow nasal cannula and is now saturating in the mid to upper 90s. She was requiring FiO2 of 80% in the ER and eventually was weaned down to FiO2 of 65% by the time she was in the ICU. 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: - Infectious Disease History Infectious Disease History: Reports: Chicken Pox - Past Surgical History Female Surgical History: Reports: Section Social & Family History - Family History Family Medical History: No Pertinent Family History - Tobacco Use Tobacco Use Status *Q: Former Tobacco User Years of Tobacco use: 6 Packs/Tins Daily: 0.5 Used Tobacco, but Quit: Yes Month/Year Tobacco Last Used: 11/2020 - Caffeine Use Caffeine Use: Reports: Coffee - Recreational Drug Use Recreational Drug Use: No H&P Review of Systems - Review of Systems: Review Of Systems: See Below General: Reports: Chills, Malaise, Weakness. Denies: Fever Pulmonary: Reports: Shortness of Breath, Cough, Sputum. Denies: Wheezing Cardiovascular: Reports: Dyspnea on Exertion. Denies: Lightheadedness, Syncope Gastrointestinal: Denies: Abdominal Pain, Anorexia, Decreased Appetite, Difficulty Swallowing Genitourinary: Denies: Dysuria, Frequency, Burning Musculoskeletal: Denies: Neck Pain, Shoulder Pain Skin: Denies: Cyanosis, Jaundice, Mottled Psychiatric: Denies: Confusion, Depression, Mood Lability Neurological: Denies: Confusion, Dizziness, Headache Exam - Exam Exam: See Below - Vital Signs Vital Signs: Last Vital Signs Temp 36.2 C 09/03/21 17:31 Pulse 116 H 09/03/21 18:29 Resp 16 09/03/21 17:31 BP 130/66 09/03/21 18:29 Pulse Ox 96 09/03/21 18:29 Weight: 99.79 kg - Exam Quality Assessment: Supplemental Oxygen General: Alert, Oriented Neck: Supple Lungs: Normal Respiratory Effort, Decreased Breath Sounds, Crackles, Rales Cardiovascular: Regular Rate, Regular Rhythm, Normal S1, Normal S2 - Patient Data Lab Results Last 24 hrs: Laboratory Results - last 24 hr 09/03/21 09/03/21 09/03/21 Range/Units 17:50 17:50 17:50 WBC 6.36 (4.0-11.0) K/uL RBC 3.72 L (4.30-5.90) M/uL Hgb 10.5 L (12.0-16.0) g/dL Hct 31.6 L (36.0-46.0) % MCV 84.9 (80.0-98.0) fL MCH 28.2 (27.0-32.0) pg MCHC 33.2 (31.0-37.0) g/dL RDW Std Deviation 40.4 (28.0-62.0) fl RDW Coeff of Kwasi 13 (11.0-15.0) % Plt Count 321 (150-400) K/uL MPV 9.30 (7.40-12.00) fL Neut % (Auto) 74.5 (48.0-80.0) % Lymph % (Auto) 19.7 (16.0-40.0) % [place] % (Auto) 5.8 (0.0-15.0) % Eos % (Auto) 0.0 (0.0-7.0) % Baso % (Auto) 0.0 (0.0-1.5) % Neut # (Auto) 4.7 (1.4-5.7) K/uL Lymph # (Auto) 1.3 (0.6-2.4) K/uL [place] # (Auto) 0.4 (0.0-0.8) K/uL Eos # (Auto) 0.0 (0.0-0.7) K/uL Baso # (Auto) 0.0 (0.0-0.1) K/uL Nucleated RBC % 0.0 /100WBC Nucleated RBCs # 0 K/uL Sodium 142 (136-145) mmol/L Potassium 3.3 L (3.5-5.1) mmol/L Chloride 106 (98-107) mmol/L Carbon Dioxide 23.8 (21.0-32.0) mmol/L BUN 6 L (7.0-18.0) mg/dL Creatinine 0.7 (0.6-1.0) mg/dL Est Cr Clr Drug Dosing 115.01 mL/min Estimated GFR (MDRD) > 60.0 ml/min Glucose 96 (74-106) mg/dL Lactic Acid (0.4-2.0) mmol/L Calcium 8.3 L (8.5-10.1) mg/dL Magnesium 1.9 (1.8-2.4) mg/dL Total Bilirubin 0.2 (0.2-1.0) mg/dL AST 50 H (15-37) IU/L ALT 43 (14-63) IU/L Alkaline Phosphatase 127 H (46-116) U/L Troponin I < 0.050 (0.000-0.056) ng/mL C-Reactive Protein (0.00-0.90) mg/dL B-Natriuretic Peptide 31 (<100) PG/ML Total Protein 6.4 (6.4-8.2) g/dL Albumin 1.9 L (3.4-5.0) g/dL Globulin 4.5 H (2.6-4.0) g/dL Albumin/Globulin Ratio 0.4 L (0.9-1.6) 09/03/21 09/03/21 Range/Units 17:50 18:00 WBC (4.0-11.0) K/uL RBC (4.30-5.90) M/uL Hgb (12.0-16.0) g/dL Hct (36.0-46.0) % MCV (80.0-98.0) fL MCH (27.0-32.0) pg MCHC (31.0-37.0) g/dL RDW Std Deviation (28.0-62.0) fl RDW Coeff of Kwasi (11.0-15.0) % Plt Count (150-400) K/uL MPV (7.40-12.00) fL Neut % (Auto) (48.0-80.0) % Lymph % (Auto) (16.0-40.0) % [place] % (Auto) (0.0-15.0) % Eos % (Auto) (0.0-7.0) % Baso % (Auto) (0.0-1.5) % Neut # (Auto) (1.4-5.7) K/uL Lymph # (Auto) (0.6-2.4) K/uL [place] # (Auto) (0.0-0.8) K/uL Eos # (Auto) (0.0-0.7) K/uL Baso # (Auto) (0.0-0.1) K/uL Nucleated RBC % /100WBC Nucleated RBCs # K/uL Sodium (136-145) mmol/L Potassium (3.5-5.1) mmol/L Chloride (98-107) mmol/L Carbon Dioxide (21.0-32.0) mmol/L BUN (7.0-18.0) mg/dL Creatinine (0.6-1.0) mg/dL Est Cr Clr Drug Dosing mL/min Estimated GFR (MDRD) ml/min Glucose (74-106) mg/dL Lactic Acid 0.7 (0.4-2.0) mmol/L Calcium (8.5-10.1) mg/dL Magnesium (1.8-2.4) mg/dL Total Bilirubin (0.2-1.0) mg/dL AST (15-37) IU/L ALT (14-63) IU/L Alkaline Phosphatase (46-116) U/L Troponin I (0.000-0.056) ng/mL C-Reactive Protein 17.90 H (0.00-0.90) mg/dL B-Natriuretic Peptide (<100) PG/ML Total Protein (6.4-8.2) g/dL Albumin (3.4-5.0) g/dL Globulin (2.6-4.0) g/dL Albumin/Globulin Ratio (0.9-1.6) Result Diagrams: 09/03/21 17:50 09/03/21 17:50 Sepsis Event Note - Evaluation Sepsis Screening Result: No Definite Risk - Focused Exam Vital Signs: Vital Signs Temp Pulse Resp BP Pulse Ox Pulse Ox 09/03/21 18:29 116 H 130/66 96 09/03/21 17:59 124 H 129/69 95 09/03/21 17:48 96 09/03/21 17:31 36.2 C 114 H 16 131/74 92 L - Problem List (1) COVID-19 SNOMED Code(s): 367963741 ICD Code: U07.1 - COVID-19 Status: Acute Current Visit: Yes (2) Hypoxia SNOMED Code(s): 235735268 ICD Code: R09.02 - HYPOXEMIA Status: Acute Current Visit: Yes (3) delivery due to maternal disorder, delivered, curr hospitaliz SNOMED Code(s): 234485224 ICD Code: O99.892 - OTH DISEASES AND CONDITIONS COMPLICATING CHILDBIRTH Status: Acute Current Visit: No Problem List Initiated/Reviewed/Updated: Yes Orders Last 24hrs: Active Orders 24 hr Category Date Time Status Patient Status [ADT] Routine ADT 09/03/21 20:49 Active Ambulate [RC] ASDIRECTED Care 09/03/21 21:38 Active Antiembolic Devices [RC] PER UNIT ROUTINE Care 09/03/21 21:40 Active Oxygen Therapy [RC] PRN Care 09/03/21 21:38 Active RT Aerosol Therapy [RC] ASDIRECTED Care 09/03/21 21:41 Active RT Post Treatment Assessment [RC] Click to Edit Care 09/03/21 21:42 Active RT Pre-Treatment Assessment [RC] Click to Edit Care 09/03/21 21:42 Active VTE/DVT Education [RC] PER UNIT ROUTINE Care 09/03/21 21:38 Active Vital Signs [RC] Q4H Care 09/03/21 21:38 Active Regular Diet [DIET] Diet 09/03/21 Dinner Active Acetaminophen [TylenoL] Med 09/03/21 21:38 Active 650 mg PO Q6H PRN Albuterol/Ipratropium [Combivent Respimat] Med 09/03/21 21:45 Active See Dose Instructions INH Q4H Albuterol/Ipratropium [DuoNeb 3.0-0.5 MG/3 ML] Med 09/03/21 21:38 Active 3 ml NEB Q4HRRT PRN Enoxaparin [Lovenox] Med 09/03/21 21:45 Active 40 mg SUBCUT Q24H Lactated Ringers [Ringers, Lactated] 1,000 ml Med 09/03/21 18:00 Active IV ASDIRECTED Ondansetron [Zofran] Med 09/03/21 21:38 Active 4 mg IVPUSH Q4H PRN Pantoprazole [ProTONIX IV] Med 09/04/21 09:00 Active 40 mg IV DAILY Remdesivir 100 mg Med 09/04/21 21:45 Active Sodium Chloride 0.9% [Normal Saline AdvBag] 100 ml IV Q24H Sodium Chloride 0.9% [Saline Flush] Med 09/03/21 17:41 Active 10 ml FLUSH ASDIRECTED PRN Sodium Chloride 0.9% [Saline Flush] Med 09/03/21 17:41 Active 2.5 ml FLUSH ASDIRECTED PRN dexAMETHasone Med 09/04/21 09:00 Active 6 mg PO DAILY Saline Lock Insert [OM.PC] Stat Oth 09/03/21 17:41 Ordered Sequential Compression Device [OM.PC] Per Unit Routine Oth 09/03/21 21:38 Ordered Resuscitation Status Routine Resus Stat 09/03/21 21:38 Ordered Medication Orders Acetaminophen (Acetaminophen 325 Mg Tab) 650 mg PO Q6H PRN PRN Reason: Pain (Mild 1-3)/fever Albuterol/Ipratropium (Albuterol/Ipratropium 3.0-0.5 Mg/3 Ml Neb Soln) 3 ml NEB Q4HRRT PRN PRN Reason: Shortness Of Breath/wheezing Albuterol/Ipratropium (Albuterol/Ipratropium 4 Gm Inhalation Mart) 0 gm INH Q4H [facility] Dexamethasone (Dexamethasone 4 Mg Tab) 6 mg PO DAILY [facility] Enoxaparin Sodium (Enoxaparin 40 Mg/0.4 Ml Syringe) 40 mg SUBCUT Q24H [facility] Lactated Ringer's (Ringers, Lactated) 1,000 mls @ 999 mls/hr IV ASDIRECTED [place] Last Admin: 09/03/21 18:00 Dose: 999 mls/hr Documented by: NILAM Remdesivir 100 mg/ Sodium (Chloride) 100 mls @ 100 mls/hr IV Q24H [facility] Stop: 09/07/21 22:44 Ondansetron HCl (Ondansetron 4 Mg/2 Ml Sdv) 4 mg IVPUSH Q4H PRN PRN Reason: Nausea/Vomiting Pantoprazole Sodium (Pantoprazole 40 Mg Vial) 40 mg IV DAILY [facility] Sodium Chloride (Sodium Chloride 0.9% 10 Ml Syringe) 10 ml FLUSH ASDIRECTED PRN PRN Reason: Keep Vein Open Last Admin: 09/03/21 18:01 Dose: 10 ml Documented by: NILAM Sodium Chloride (Sodium Chloride 0.9% 2.5 Ml Syringe) 2.5 ml FLUSH ASDIRECTED PRN PRN Reason: Keep Vein Open Last Admin: 09/03/21 18:00 Dose: 2.5 ml Documented by: NILAM Assessment/Plan Comment:: 25-year-old female admitted for acute hypoxic respiratory failure secondary to Covid pneumonia Continue IV remdesivir and oral Decadron Continue Lovenox for DVT prophylaxis Combivent scheduled DuoNebs as needed for shortness of breath Incentive spirometry and proning to be encouraged Out of bed to chair when possible Regular diet We will check CRP, if high will start patient on Tocilizumab since it is a single dose compared to baricitinib which she will have to take for 14 days and will hamper breast-feeding which patient does not prefer. Patient has given me verbal consent to use tocilizumab and available in a.m., all the risks and benefits were explained patient will be provided with a fact sheet Patient has been counseled to pump and dump the breast milk for next 5 days till she is on remdesivir,
[2021-09-03] MEDS: Enoxaparin 40 MG/0.4 ML Syringe SUBCUT SCH (22:38)
[2021-09-03] MEDS: Albuterol/Ipratropium 4 GM Inhalation Spray INH SCH (22:38)
--- NOTE | 2021-09-04 00:46 | PN ---
THC Physician - Brief Progress [id number]/02/2021 00:42[facility] Martín Onofre, [place] - [place] ([place]ORGE) - MWN ICUROBSUMIT QUEENRui, COVID+Date of Service 09/04/2021 00:42HP I/Events of Note eICU Admission [id number] F admitted with hypoxemic resp failure 2/2 COVID. BMI 36Star anthony on remdesivir, steroidsEnoxaparin for dvt prophRequiring HFNC and admitted to the ICU On Camera S leeping comfortably- tachypneic as expectedHR 104 RR 43 BP 113/60 Sats 96%Labs reviewed CRP 18eICU Re commendations:Supplmental O2 to maintain sats 90-94%Steroids, remdesivirEuglycemiaEnoxaparin for VTE prophSelf proning and mobilizationThank you for allowing us to participate in the care of your patien t.Interventions Major-Hypoxemia - evaluation and management, Respiratory failure - evaluation and man agement
[2021-09-04] MEDS: Albuterol/Ipratropium 4 GM Inhalation Spray INH SCH ×6 (01:48→21:38)
[2021-09-04 07:03] LABS: BLOOD UREA NITROGEN,BUN 8 mg/dL (7.0-18.0); CARBON DIOXIDE,CO2 23.9 mmol/L (21.0-32.0); CHLORIDE,CL 108 mmol/L (98-107); GLUCOSE RANDOM 116 mg/dL (74-106); POTASSIUM,K 4.5 mmol/L (3.5-5.1); SODIUM,NA 143 mmol/L (136-145)
[2021-09-04] MEDS: Dexamethasone 4 MG Tab PO SCH (08:47)
[2021-09-04] MEDS: Pantoprazole 40 MG in Sodium Chloride 0.9% 10 ML IV SCH (08:47)
[2021-09-04] MEDS ORDERED: Pantoprazole 40 MG Vial IV SCH (09:00)
[2021-09-04] MEDS ORDERED: SODIUM CHLORIDE 0.9% IV ONE (13:30)
[2021-09-04] MEDS ORDERED: TOCILIZUMAB IV ONE (13:30)
--- NOTE | 2021-09-04 15:59 | PCM.PN ---
- General Info Date of Service: 09/04/21 Admission Dx/Problem (Free Text): Admission Diagnosis/Problem Admission Diagnosis/Problem Hypoxia Subjective Update: Patient seen at bedside, having her breakfast comfortably, no acute distress continues to need high flow oxygen Functional Status: Reports: Tolerating Diet, Ambulating, Urinating - Review of Systems General: Reports: Weakness, Fatigue, Malaise. Denies: Fever Pulmonary: Reports: Shortness of Breath, Cough, Sputum. Denies: Pleuritic Chest Pain Cardiovascular: Reports: Dyspnea on Exertion. Denies: Chest Pain, Palpitations Gastrointestinal: Denies: Abdominal Pain, Constipation, Decreased Appetite Genitourinary: Denies: Dysuria, Frequency, Burning Musculoskeletal: Denies: Neck Pain, Shoulder Pain, Arm Pain Skin: Denies: Cyanosis, Jaundice, Mottled Neurological: Denies: Confusion, Dizziness, Headache - Patient Data Vitals - Most Recent: Last Vital Signs Temp 36.4 C 09/04/21 12:00 Pulse 105 H 09/04/21 07:00 Resp 34 H 09/04/21 15:00 BP 123/76 09/04/21 15:00 Pulse Ox 97 09/04/21 15:00 Weight - Most Recent: 92.442 kg I&O - Last 24 Hours: Intake & Output 09/04/21 09/04/21 09/04/21 06:59 14:59 22:59 Intake Total 520 Output Total 1100 Balance -580 Lab Results Last 24 Hours: Laboratory Results - last 24 hr 09/03/21 09/03/21 09/03/21 Range/Units 17:50 17:50 17:50 WBC 6.36 (4.0-11.0) K/uL RBC 3.72 L (4.30-5.90) M/uL Hgb 10.5 L (12.0-16.0) g/dL Hct 31.6 L (36.0-46.0) % MCV 84.9 (80.0-98.0) fL MCH 28.2 (27.0-32.0) pg MCHC 33.2 (31.0-37.0) g/dL RDW Std Deviation 40.4 (28.0-62.0) fl RDW Coeff of Kwasi 13 (11.0-15.0) % Plt Count 321 (150-400) K/uL MPV 9.30 (7.40-12.00) fL Neut % (Auto) 74.5 (48.0-80.0) % Lymph % (Auto) 19.7 (16.0-40.0) % Cassia % (Auto) 5.8 (0.0-15.0) % Eos % (Auto) 0.0 (0.0-7.0) % Baso % (Auto) 0.0 (0.0-1.5) % Neut # (Auto) 4.7 (1.4-5.7) K/uL Lymph # (Auto) 1.3 (0.6-2.4) K/uL Cassia # (Auto) 0.4 (0.0-0.8) K/uL Eos # (Auto) 0.0 (0.0-0.7) K/uL Baso # (Auto) 0.0 (0.0-0.1) K/uL Add Manual Diff Neutrophils % (Manual) (48.0-80.0) % Band Neutrophils % % Lymphocytes % (Manual) (16.0-40.0) % Monocytes % (Manual) (0.0-15.0) % Nucleated RBC % 0.0 /100WBC Absolute Seg Neuts (1.4-5.7) Band Neutrophils # Lymphocytes # (Manual) (0.6-2.4) Monocytes # (Manual) (0.0-0.8) Nucleated RBCs # 0 K/uL Sodium 142 (136-145) mmol/L Potassium 3.3 L (3.5-5.1) mmol/L Chloride 106 (98-107) mmol/L Carbon Dioxide 23.8 (21.0-32.0) mmol/L BUN 6 L (7.0-18.0) mg/dL Creatinine 0.7 (0.6-1.0) mg/dL Est Cr Clr Drug Dosing 115.01 mL/min Estimated GFR (MDRD) > 60.0 ml/min Glucose 96 (74-106) mg/dL Lactic Acid (0.4-2.0) mmol/L Calcium 8.3 L (8.5-10.1) mg/dL Magnesium 1.9 (1.8-2.4) mg/dL Total Bilirubin 0.2 (0.2-1.0) mg/dL AST 50 H (15-37) IU/L ALT 43 (14-63) IU/L Alkaline Phosphatase 127 H (46-116) U/L Troponin I < 0.050 (0.000-0.056) ng/mL C-Reactive Protein (0.00-0.90) mg/dL B-Natriuretic Peptide 31 (<100) PG/ML Total Protein 6.4 (6.4-8.2) g/dL Albumin 1.9 L (3.4-5.0) g/dL Globulin 4.5 H (2.6-4.0) g/dL Albumin/Globulin Ratio 0.4 L (0.9-1.6) 09/03/21 09/03/21 09/04/21 Range/Units 17:50 18:00 05:15 WBC 5.77 (4.0-11.0) K/uL RBC 3.57 L (4.30-5.90) M/uL Hgb 9.9 L (12.0-16.0) g/dL Hct 30.3 L (36.0-46.0) % MCV 84.9 (80.0-98.0) fL MCH 27.7 (27.0-32.0) pg MCHC 32.7 (31.0-37.0) g/dL RDW Std Deviation 40.4 (28.0-62.0) fl RDW Coeff of Kwasi 13 (11.0-15.0) % Plt Count 328 (150-400) K/uL MPV 9.40 (7.40-12.00) fL Neut % (Auto) (48.0-80.0) % Lymph % (Auto) (16.0-40.0) % Cassia % (Auto) (0.0-15.0) % Eos % (Auto) (0.0-7.0) % Baso % (Auto) (0.0-1.5) % Neut # (Auto) (1.4-5.7) K/uL Lymph # (Auto) (0.6-2.4) K/uL Cassia # (Auto) (0.0-0.8) K/uL Eos # (Auto) (0.0-0.7) K/uL Baso # (Auto) (0.0-0.1) K/uL Add Manual Diff YES Neutrophils % (Manual) 68 (48.0-80.0) % Band Neutrophils % 7 % Lymphocytes % (Manual) 21 (16.0-40.0) % Monocytes % (Manual) 4 (0.0-15.0) % Nucleated RBC % 0.0 /100WBC Absolute Seg Neuts 3.9 (1.4-5.7) Band Neutrophils # 0.4 Lymphocytes # (Manual) 1.2 (0.6-2.4) Monocytes # (Manual) 0.2 (0.0-0.8) Nucleated RBCs # 0 K/uL Sodium (136-145) mmol/L Potassium (3.5-5.1) mmol/L Chloride (98-107) mmol/L Carbon Dioxide (21.0-32.0) mmol/L BUN (7.0-18.0) mg/dL Creatinine (0.6-1.0) mg/dL Est Cr Clr Drug Dosing mL/min Estimated GFR (MDRD) ml/min Glucose (74-106) mg/dL Lactic Acid 0.7 (0.4-2.0) mmol/L Calcium (8.5-10.1) mg/dL Magnesium (1.8-2.4) mg/dL Total Bilirubin (0.2-1.0) mg/dL AST (15-37) IU/L ALT (14-63) IU/L Alkaline Phosphatase (46-116) U/L Troponin I (0.000-0.056) ng/mL C-Reactive Protein 17.90 H (0.00-0.90) mg/dL B-Natriuretic Peptide (<100) PG/ML Total Protein (6.4-8.2) g/dL Albumin (3.4-5.0) g/dL Globulin (2.6-4.0) g/dL Albumin/Globulin Ratio (0.9-1.6) 09/04/21 Range/Units 05:15 WBC (4.0-11.0) K/uL RBC (4.30-5.90) M/uL Hgb (12.0-16.0) g/dL Hct (36.0-46.0) % MCV (80.0-98.0) fL MCH (27.0-32.0) pg MCHC (31.0-37.0) g/dL RDW Std Deviation (28.0-62.0) fl RDW Coeff of Kwasi (11.0-15.0) % Plt Count (150-400) K/uL MPV (7.40-12.00) fL Neut % (Auto) (48.0-80.0) % Lymph % (Auto) (16.0-40.0) % Cassia % (Auto) (0.0-15.0) % Eos % (Auto) (0.0-7.0) % Baso % (Auto) (0.0-1.5) % Neut # (Auto) (1.4-5.7) K/uL Lymph # (Auto) (0.6-2.4) K/uL Cassia # (Auto) (0.0-0.8) K/uL Eos # (Auto) (0.0-0.7) K/uL Baso # (Auto) (0.0-0.1) K/uL Add Manual Diff Neutrophils % (Manual) (48.0-80.0) % Band Neutrophils % % Lymphocytes % (Manual) (16.0-40.0) % Monocytes % (Manual) (0.0-15.0) % Nucleated RBC % /100WBC Absolute Seg Neuts (1.4-5.7) Band Neutrophils # Lymphocytes # (Manual) (0.6-2.4) Monocytes # (Manual) (0.0-0.8) Nucleated RBCs # K/uL Sodium 143 (136-145) mmol/L Potassium 4.5 (3.5-5.1) mmol/L Chloride 108 H (98-107) mmol/L Carbon Dioxide 23.9 (21.0-32.0) mmol/L BUN 8 (7.0-18.0) mg/dL Creatinine 0.6 (0.6-1.0) mg/dL Est Cr Clr Drug Dosing 134.18 mL/min Estimated GFR (MDRD) > 60.0 ml/min Glucose 116 H (74-106) mg/dL Lactic Acid (0.4-2.0) mmol/L Calcium 7.4 L (8.5-10.1) mg/dL Magnesium (1.8-2.4) mg/dL Total Bilirubin 0.2 (0.2-1.0) mg/dL AST 44 H (15-37) IU/L ALT 40 (14-63) IU/L Alkaline Phosphatase 124 H (46-116) U/L Troponin I (0.000-0.056) ng/mL C-Reactive Protein (0.00-0.90) mg/dL B-Natriuretic Peptide (<100) PG/ML Total Protein 5.5 L (6.4-8.2) g/dL Albumin 1.7 L (3.4-5.0) g/dL Globulin 3.8 (2.6-4.0) g/dL Albumin/Globulin Ratio 0.5 L (0.9-1.6) Med Orders - Current: Current Medications Acetaminophen (Acetaminophen 325 Mg Tab) 650 mg PO Q6H PRN PRN Reason: Pain (Mild 1-3)/fever Last Admin: 09/04/21 12:33 Dose: 650 mg Documented by: Albuterol/Ipratropium (Albuterol/Ipratropium 3.0-0.5 Mg/3 Ml Neb Soln) 3 ml NEB Q4HRRT PRN PRN Reason: Shortness Of Breath/wheezing Albuterol/Ipratropium (Albuterol/Ipratropium [address] [place]) 0 gm INH Q4H [facility] Last Admin: 09/04/21 13:53 Dose: 1 puff Documented by: Dexamethasone (Dexamethasone 4 Mg Tab) 6 mg PO DAILY [facility] Last Admin: 09/04/21 08:47 Dose: 6 mg Documented by: Enoxaparin Sodium (Enoxaparin 40 Mg/0.4 Ml Syringe) 40 mg SUBCUT Q24H [facility] Last Admin: 09/03/21 22:38 Dose: 40 mg Documented by: Lactated Ringer's (Ringers, Lactated) 1,000 mls @ 999 mls/hr IV ASDIRECTED [facility] Last Admin: 09/03/21 18:00 Dose: 999 mls/hr Documented by: Remdesivir 100 mg/ Sodium (Chloride) 100 mls @ 100 mls/hr IV Q24H [facility] Stop: 09/07/21 22:44 Pantoprazole Sodium 40 mg/ (Sodium Chloride) 10 mls @ 300 mls/hr IV Q24H [facility] Last Admin: 09/04/21 08:47 Dose: 300 mls/hr Documented by: Ondansetron HCl (Ondansetron 4 Mg/2 Ml Sdv) 4 mg IVPUSH Q4H PRN PRN Reason: Nausea/Vomiting Sodium Chloride (Sodium Chloride 0.9% 10 Ml Syringe) 10 ml FLUSH ASDIRECTED PRN PRN Reason: Keep Vein Open Last Admin: 09/03/21 18:01 Dose: 10 ml Documented by: Sodium Chloride (Sodium Chloride 0.9% 2.5 Ml Syringe) 2.5 ml FLUSH ASDIRECTED PRN PRN Reason: Keep Vein Open Last Admin: 09/03/21 18:00 Dose: 2.5 ml Documented by: Discontinued Medications Dexamethasone (Dexamethasone 10 Mg/Ml Sdv) 6 mg IVPUSH ONETIME ONE Stop: 09/03/21 17:43 Last Admin: 09/03/21 18:01 Dose: 6 mg Documented by: Remdesivir 200 mg/ Sodium (Chloride) 250 mls @ 250 mls/hr IV ONETIME ONE Stop: 09/03/21 20:44 Last Admin: 09/03/21 21:34 Dose: 250 mls/hr Documented by: Tocilizumab 750 mg/ Sodium (Chloride) 137.5 mls @ 137.5 mls/hr IV ONETIME ONE Stop: 09/04/21 13:31 Last Admin: 09/04/21 14:14 Dose: 137.5 mls/hr Documented by: Iopamidol (Iopamidol 755 Mg/Ml 500 Ml Multipack Bottle) 100 ml IVPUSH ONETIME STA Stop: 09/03/21 18:53 Last Admin: 09/03/21 18:52 Dose: 100 ml Documented by: - Exam Quality Assessment: Supplemental Oxygen General: Alert, Oriented, No Acute Distress Lungs: Normal Respiratory Effort, Decreased Breath Sounds, Crackles, Rales Cardiovascular: Regular Rate, Regular Rhythm GI/Abdominal Exam: Normal Bowel Sounds, Soft, Non-Tender Extremities: Normal Inspection, Normal Range of Motion - Patient Data Lab Results Last 24 hrs: Laboratory Results - last 24 hr 09/03/21 09/03/21 09/03/21 Range/Units 17:50 17:50 17:50 WBC 6.36 (4.0-11.0) K/uL RBC 3.72 L (4.30-5.90) M/uL Hgb 10.5 L (12.0-16.0) g/dL Hct 31.6 L (36.0-46.0) % MCV 84.9 (80.0-98.0) fL MCH 28.2 (27.0-32.0) pg MCHC 33.2 (31.0-37.0) g/dL RDW Std Deviation 40.4 (28.0-62.0) fl RDW Coeff of Kwasi 13 (11.0-15.0) % Plt Count 321 (150-400) K/uL MPV 9.30 (7.40-12.00) fL Neut % (Auto) 74.5 (48.0-80.0) % Lymph % (Auto) 19.7 (16.0-40.0) % Cassia % (Auto) 5.8 (0.0-15.0) % Eos % (Auto) 0.0 (0.0-7.0) % Baso % (Auto) 0.0 (0.0-1.5) % Neut # (Auto) 4.7 (1.4-5.7) K/uL Lymph # (Auto) 1.3 (0.6-2.4) K/uL Cassia # (Auto) 0.4 (0.0-0.8) K/uL Eos # (Auto) 0.0 (0.0-0.7) K/uL Baso # (Auto) 0.0 (0.0-0.1) K/uL Add Manual Diff Neutrophils % (Manual) (48.0-80.0) % Band Neutrophils % % Lymphocytes % (Manual) (16.0-40.0) % Monocytes % (Manual) (0.0-15.0) % Nucleated RBC % 0.0 /100WBC Absolute Seg Neuts (1.4-5.7) Band Neutrophils # Lymphocytes # (Manual) (0.6-2.4) Monocytes # (Manual) (0.0-0.8) Nucleated RBCs # 0 K/uL Sodium 142 (136-145) mmol/L Potassium 3.3 L (3.5-5.1) mmol/L Chloride 106 (98-107) mmol/L Carbon Dioxide 23.8 (21.0-32.0) mmol/L BUN 6 L (7.0-18.0) mg/dL Creatinine 0.7 (0.6-1.0) mg/dL Est Cr Clr Drug Dosing 115.01 mL/min Estimated GFR (MDRD) > 60.0 ml/min Glucose 96 (74-106) mg/dL Lactic Acid (0.4-2.0) mmol/L Calcium 8.3 L (8.5-10.1) mg/dL Magnesium 1.9 (1.8-2.4) mg/dL Total Bilirubin 0.2 (0.2-1.0) mg/dL AST 50 H (15-37) IU/L ALT 43 (14-63) IU/L Alkaline Phosphatase 127 H (46-116) U/L Troponin I < 0.050 (0.000-0.056) ng/mL C-Reactive Protein (0.00-0.90) mg/dL B-Natriuretic Peptide 31 (<100) PG/ML Total Protein 6.4 (6.4-8.2) g/dL Albumin 1.9 L (3.4-5.0) g/dL Globulin 4.5 H (2.6-4.0) g/dL Albumin/Globulin Ratio 0.4 L (0.9-1.6) 09/03/21 09/03/21 09/04/21 Range/Units 17:50 18:00 05:15 WBC 5.77 (4.0-11.0) K/uL RBC 3.57 L (4.30-5.90) M/uL Hgb 9.9 L (12.0-16.0) g/dL Hct 30.3 L (36.0-46.0) % MCV 84.9 (80.0-98.0) fL MCH 27.7 (27.0-32.0) pg MCHC 32.7 (31.0-37.0) g/dL RDW Std Deviation 40.4 (28.0-62.0) fl RDW Coeff of Kwasi 13 (11.0-15.0) % Plt Count 328 (150-400) K/uL MPV 9.40 (7.40-12.00) fL Neut % (Auto) (48.0-80.0) % Lymph % (Auto) (16.0-40.0) % Cassia % (Auto) (0.0-15.0) % Eos % (Auto) (0.0-7.0) % Baso % (Auto) (0.0-1.5) % Neut # (Auto) (1.4-5.7) K/uL Lymph # (Auto) (0.6-2.4) K/uL Cassia # (Auto) (0.0-0.8) K/uL Eos # (Auto) (0.0-0.7) K/uL Baso # (Auto) (0.0-0.1) K/uL Add Manual Diff YES Neutrophils % (Manual) 68 (48.0-80.0) % Band Neutrophils % 7 % Lymphocytes % (Manual) 21 (16.0-40.0) % Monocytes % (Manual) 4 (0.0-15.0) % Nucleated RBC % 0.0 /100WBC Absolute Seg Neuts 3.9 (1.4-5.7) Band Neutrophils # 0.4 Lymphocytes # (Manual) 1.2 (0.6-2.4) Monocytes # (Manual) 0.2 (0.0-0.8) Nucleated RBCs # 0 K/uL Sodium (136-145) mmol/L Potassium (3.5-5.1) mmol/L Chloride (98-107) mmol/L Carbon Dioxide (21.0-32.0) mmol/L BUN (7.0-18.0) mg/dL Creatinine (0.6-1.0) mg/dL Est Cr Clr Drug Dosing mL/min Estimated GFR (MDRD) ml/min Glucose (74-106) mg/dL Lactic Acid 0.7 (0.4-2.0) mmol/L Calcium (8.5-10.1) mg/dL Magnesium (1.8-2.4) mg/dL Total Bilirubin (0.2-1.0) mg/dL AST (15-37) IU/L ALT (14-63) IU/L Alkaline Phosphatase (46-116) U/L Troponin I (0.000-0.056) ng/mL C-Reactive Protein 17.90 H (0.00-0.90) mg/dL B-Natriuretic Peptide (<100) PG/ML Total Protein (6.4-8.2) g/dL Albumin (3.4-5.0) g/dL Globulin (2.6-4.0) g/dL Albumin/Globulin Ratio (0.9-1.6) 09/04/21 Range/Units 05:15 WBC (4.0-11.0) K/uL RBC (4.30-5.90) M/uL Hgb (12.0-16.0) g/dL Hct (36.0-46.0) % MCV (80.0-98.0) fL MCH (27.0-32.0) pg MCHC (31.0-37.0) g/dL RDW Std Deviation (28.0-62.0) fl RDW Coeff of Kwasi (11.0-15.0) % Plt Count (150-400) K/uL MPV (7.40-12.00) fL Neut % (Auto) (48.0-80.0) % Lymph % (Auto) (16.0-40.0) % Cassia % (Auto) (0.0-15.0) % Eos % (Auto) (0.0-7.0) % Baso % (Auto) (0.0-1.5) % Neut # (Auto) (1.4-5.7) K/uL Lymph # (Auto) (0.6-2.4) K/uL Cassia # (Auto) (0.0-0.8) K/uL Eos # (Auto) (0.0-0.7) K/uL Baso # (Auto) (0.0-0.1) K/uL Add Manual Diff Neutrophils % (Manual) (48.0-80.0) % Band Neutrophils % % Lymphocytes % (Manual) (16.0-40.0) % Monocytes % (Manual) (0.0-15.0) % Nucleated RBC % /100WBC Absolute Seg Neuts (1.4-5.7) Band Neutrophils # Lymphocytes # (Manual) (0.6-2.4) Monocytes # (Manual) (0.0-0.8) Nucleated RBCs # K/uL Sodium 143 (136-145) mmol/L Potassium 4.5 (3.5-5.1) mmol/L Chloride 108 H (98-107) mmol/L Carbon Dioxide 23.9 (21.0-32.0) mmol/L BUN 8 (7.0-18.0) mg/dL Creatinine 0.6 (0.6-1.0) mg/dL Est Cr Clr Drug Dosing 134.18 mL/min Estimated GFR (MDRD) > 60.0 ml/min Glucose 116 H (74-106) mg/dL Lactic Acid (0.4-2.0) mmol/L Calcium 7.4 L (8.5-10.1) mg/dL Magnesium (1.8-2.4) mg/dL Total Bilirubin 0.2 (0.2-1.0) mg/dL AST 44 H (15-37) IU/L ALT 40 (14-63) IU/L Alkaline Phosphatase 124 H (46-116) U/L Troponin I (0.000-0.056) ng/mL C-Reactive Protein (0.00-0.90) mg/dL B-Natriuretic Peptide (<100) PG/ML Total Protein 5.5 L (6.4-8.2) g/dL Albumin 1.7 L (3.4-5.0) g/dL Globulin 3.8 (2.6-4.0) g/dL Albumin/Globulin Ratio 0.5 L (0.9-1.6) Result Diagrams: 09/04/21 05:15 09/04/21 05:15 Sepsis Event Note - Evaluation Sepsis Screening Result: Sepsis Risk - Focused Exam Vital Signs: Vital Signs Temp Pulse Resp BP Pulse Ox 09/04/21 15:00 34 H 123/76 97 09/04/21 14:00 48 H 138/69 94 L 09/04/21 13:00 25 H 127/67 92 L 09/04/21 12:00 36.4 C 42 H 136/78 92 L 09/04/21 11:00 33 H 92 L 09/04/21 10:00 43 H 122/82 91 L 09/04/21 09:00 36.0 C L 23 H 118/55 L 90 L 09/04/21 08:00 23 H 123/72 94 L 09/04/21 07:00 105 H 44 H 109/67 93 L 09/04/21 06:00 93 44 H 114/46 L 96 09/04/21 05:00 106 H 43 H 139/83 90 L 09/04/21 04:20 40 H 90 L 09/04/21 04:00 36.0 C L 101 H 20 121/76 84 L - Problem List & Annotations (1) COVID-19 SNOMED Code(s): 034324557 Code(s): U07.1 - COVID-19 Status: Acute Current Visit: Yes (2) Hypoxia SNOMED Code(s): 273930552 Code(s): R09.02 - HYPOXEMIA Status: Acute Current Visit: Yes (3) delivery due to maternal disorder, delivered, curr hospitaliz SNOMED Code(s): 784649702 Code(s): O99.892 - OTH DISEASES AND CONDITIONS COMPLICATING CHILDBIRTH Status: Acute Current Visit: No - Problem List Review Problem List Initiated/Reviewed/Updated: Yes - My Orders Last 24 Hours: My Active Orders 09/03/21 Dinner Regular Diet [DIET] 09/03/21 21:38 Ambulate [RC] ASDIRECTED Oxygen Therapy [RC] PRN VTE/DVT Education [RC] PER UNIT ROUTINE Vital Signs [RC] Q1H Acetaminophen [TylenoL] 650 mg PO Q6H PRN Albuterol/Ipratropium [DuoNeb 3.0-0.5 MG/3 ML] 3 ml NEB Q4HRRT PRN Ondansetron [Zofran] 4 mg IVPUSH Q4H PRN Sequential Compression Device [OM.PC] Per Unit Routine Resuscitation Status Routine 09/03/21 21:40 Antiembolic Devices [RC] Q12H 09/03/21 21:41 RT Aerosol Therapy [RC] ASDIRECTED 09/03/21 21:42 RT Post Treatment Assessment [RC] Click to Edit RT Pre-Treatment Assessment [RC] Click to Edit 09/03/21 21:45 Albuterol/Ipratropium [Combivent Respimat] See Dose Instructions INH Q4H Enoxaparin [Lovenox] 40 mg SUBCUT Q24H 09/03/21 22:08 Incentive Spirometry [RT Incentive Spirometry] [RC] Q2HWA 09/04/21 09:00 Pantoprazole [ProTONIX IV] 40 mg Sodium Chloride 0.9% [Normal Saline] 10 ml IV Q24H dexAMETHasone 6 mg PO DAILY 09/04/21 21:45 Remdesivir 100 mg Sodium Chloride 0.9% [Normal Saline AdvBag] 100 ml IV Q24H - Plan Plan:: 25-year-old female admitted for acute hypoxic respiratory failure secondary to Covid pneumonia Continue IV remdesivir and oral Decadron Continue Lovenox for DVT prophylaxis Combivent scheduled DuoNebs as needed for shortness of breath Incentive spirometry and proning to be encouraged Out of bed to chair when possible Regular diet Will administer Actemra, risks and benefit explained to the patient, patient has given me verbal consent, a fact sheet has been given to the patient as well Patient has been counseled to pump and dump the breast milk for next 5 days till she is on remdesivir,
[2021-09-04] MEDS: Enoxaparin 40 MG/0.4 ML Syringe SUBCUT SCH (21:38)
[2021-09-04] MEDS: REMDESIVIR 100 MG in Sodium Chloride 0.9% 100 ML IV SCH (21:38)
[2021-09-05] MEDS: Albuterol/Ipratropium 4 GM Inhalation Spray INH SCH ×6 (01:15→21:06)
[2021-09-05 07:21] LABS: BLOOD UREA NITROGEN,BUN 11 mg/dL (7.0-18.0); CARBON DIOXIDE,CO2 25.3 mmol/L (21.0-32.0); CHLORIDE,CL 108 mmol/L (98-107); GLUCOSE RANDOM 92 mg/dL (74-106); POTASSIUM,K 4.2 mmol/L (3.5-5.1); SODIUM,NA 144 mmol/L (136-145)
[2021-09-05] MEDS: Pantoprazole 40 MG in Sodium Chloride 0.9% 10 ML IV SCH (08:04)
[2021-09-05] MEDS: Dexamethasone 4 MG Tab PO SCH (08:04)
--- NOTE | 2021-09-05 14:46 | PCM.PN ---
- General Info Date of Service: 09/05/21 Admission Dx/Problem (Free Text): Admission Diagnosis/Problem Admission Diagnosis/Problem Hypoxia Subjective Update: Patient seen at bedside, having her breakfast comfortably, no acute distress continues to need high flow oxygen states her breathing is slightly better than yesterday - Review of Systems General: Reports: Weakness, Malaise. Denies: Fever, Fatigue, Chills Pulmonary: Reports: Shortness of Breath, Cough, Sputum. Denies: Pleuritic Chest Pain Cardiovascular: Reports: Dyspnea on Exertion. Denies: Chest Pain, Palpitations, Orthopnea Gastrointestinal: Denies: Abdominal Pain, Constipation, Decreased Appetite Genitourinary: Denies: Dysuria, Frequency, Burning Musculoskeletal: Denies: Neck Pain, Shoulder Pain, Arm Pain Skin: Denies: Cyanosis, Jaundice, Mottled Neurological: Denies: Confusion, Dizziness, Headache, Numbness - Patient Data Vitals - Most Recent: Last Vital Signs Temp 36.3 C 09/05/21 12:00 Pulse 105 H 09/04/21 07:00 Resp 25 H 09/05/21 14:00 BP 142/74 H 09/05/21 14:00 Pulse Ox 92 L 09/05/21 14:00 Weight - Most Recent: 89.443 kg I&O - Last 24 Hours: Intake & Output 09/04/21 09/05/21 09/05/21 22:59 06:59 14:59 Intake Total 1010 1000 Output Total 1600 1200 Balance -590 -200 Lab Results Last 24 Hours: Laboratory Results - last 24 hr 09/05/21 09/05/21 Range/Units 04:50 04:50 WBC 5.60 (4.0-11.0) K/uL RBC 3.37 L (4.30-5.90) M/uL Hgb 9.4 L (12.0-16.0) g/dL Hct 28.7 L (36.0-46.0) % MCV 85.2 (80.0-98.0) fL MCH 27.9 (27.0-32.0) pg MCHC 32.8 (31.0-37.0) g/dL RDW Std Deviation 40.9 (28.0-62.0) fl RDW Coeff of Kwasi 13 (11.0-15.0) % Plt Count 382 (150-400) K/uL MPV 9.50 (7.40-12.00) fL Neut % (Auto) 60.9 (48.0-80.0) % Lymph % (Auto) 32.1 (16.0-40.0) % [place] % (Auto) 6.8 (0.0-15.0) % Eos % (Auto) 0.0 (0.0-7.0) % Baso % (Auto) 0.2 (0.0-1.5) % Neut # (Auto) 3.4 (1.4-5.7) K/uL Lymph # (Auto) 1.8 (0.6-2.4) K/uL [place] # (Auto) 0.4 (0.0-0.8) K/uL Eos # (Auto) 0.0 (0.0-0.7) K/uL Baso # (Auto) 0.0 (0.0-0.1) K/uL Nucleated RBC % 0.0 /100WBC Nucleated RBCs # 0 K/uL Sodium 144 (136-145) mmol/L Potassium 4.2 (3.5-5.1) mmol/L Chloride 108 H (98-107) mmol/L Carbon Dioxide 25.3 (21.0-32.0) mmol/L BUN 11 (7.0-18.0) mg/dL Creatinine 0.6 (0.6-1.0) mg/dL Est Cr Clr Drug Dosing 134.18 mL/min Estimated GFR (MDRD) > 60.0 ml/min Glucose 92 (74-106) mg/dL Calcium 7.4 L (8.5-10.1) mg/dL Phosphorus 3.9 (2.6-4.7) mg/dL Magnesium 1.8 (1.8-2.4) mg/dL Total Bilirubin 0.2 (0.2-1.0) mg/dL AST 55 H (15-37) IU/L ALT 54 (14-63) IU/L Alkaline Phosphatase 125 H (46-116) U/L Total Protein 5.1 L (6.4-8.2) g/dL Albumin 1.8 L (3.4-5.0) g/dL Globulin 3.3 (2.6-4.0) g/dL Albumin/Globulin Ratio 0.6 L (0.9-1.6) Med Orders - Current: Current Medications Acetaminophen (Acetaminophen 325 Mg Tab) 650 mg PO Q6H PRN PRN Reason: Pain (Mild 1-3)/fever Last Admin: 09/04/21 12:33 Dose: 650 mg Documented by: Albuterol/Ipratropium (Albuterol/Ipratropium 3.0-0.5 Mg/3 Ml Neb Soln) 3 ml NEB Q4HRRT PRN PRN Reason: Shortness Of Breath/wheezing Albuterol/Ipratropium (Albuterol/Ipratropium 4 Gm Inhalation [place]) 0 gm INH Q4H [facility] Last Admin: 09/05/21 13:02 Dose: 1 puff Documented by: Dexamethasone (Dexamethasone 4 Mg Tab) 6 mg PO DAILY [facility] Last Admin: 09/05/21 08:04 Dose: 6 mg Documented by: Enoxaparin Sodium (Enoxaparin 40 Mg/0.4 Ml Syringe) 40 mg SUBCUT Q24H [facility] Last Admin: 09/04/21 21:38 Dose: 40 mg Documented by: Remdesivir 100 mg/ Sodium (Chloride) 100 mls @ 100 mls/hr IV Q24H [facility] Stop: 09/07/21 22:44 Last Admin: 09/04/21 21:38 Dose: 100 mls/hr Documented by: Pantoprazole Sodium 40 mg/ (Sodium Chloride) 10 mls @ 300 mls/hr IV Q24H [facility] Last Admin: 09/05/21 08:04 Dose: 300 mls/hr Documented by: Ondansetron HCl (Ondansetron 4 Mg/2 Ml Sdv) 4 mg IVPUSH Q4H PRN PRN Reason: Nausea/Vomiting Sodium Chloride (Sodium Chloride 0.9% 10 Ml Syringe) 10 ml FLUSH ASDIRECTED PRN PRN Reason: Keep Vein Open Last Admin: 09/03/21 18:01 Dose: 10 ml Documented by: Sodium Chloride (Sodium Chloride 0.9% 2.5 Ml Syringe) 2.5 ml FLUSH ASDIRECTED PRN PRN Reason: Keep Vein Open Last Admin: 09/03/21 18:00 Dose: 2.5 ml Documented by: Discontinued Medications Dexamethasone (Dexamethasone 10 Mg/Ml Sdv) 6 mg IVPUSH ONETIME ONE Stop: 09/03/21 17:43 Last Admin: 09/03/21 18:01 Dose: 6 mg Documented by: Lactated Ringer's (Ringers, Lactated) 1,000 mls @ 999 mls/hr IV ASDIRECTED [place] Last Admin: 09/03/21 18:00 Dose: 999 mls/hr Documented by: Remdesivir 200 mg/ Sodium (Chloride) 250 mls @ 250 mls/hr IV ONETIME ONE Stop: 09/03/21 20:44 Last Admin: 09/03/21 21:34 Dose: 250 mls/hr Documented by: Tocilizumab 750 mg/ Sodium (Chloride) 137.5 mls @ 137.5 mls/hr IV ONETIME ONE Stop: 09/04/21 13:31 Last Admin: 09/04/21 14:14 Dose: 137.5 mls/hr Documented by: Iopamidol (Iopamidol 755 Mg/Ml 500 Ml Multipack Bottle) 100 ml IVPUSH ONETIME STA Stop: 09/03/21 18:53 Last Admin: 09/03/21 18:52 Dose: 100 ml Documented by: - Exam Quality Assessment: Supplemental Oxygen General: Alert, Oriented, Cooperative Lungs: Normal Respiratory Effort, Crackles, Rales Cardiovascular: Regular Rate, Regular Rhythm GI/Abdominal Exam: Normal Bowel Sounds, Soft, Non-Tender. No: Hepatomegaly, Splenomegaly (Female) Exam: Deferred Back Exam: Normal Inspection, Full Range of Motion Extremities: Normal Inspection, Normal Range of Motion - Patient Data Lab Results Last 24 hrs: Laboratory Results - last 24 hr 09/05/21 09/05/21 Range/Units 04:50 04:50 WBC 5.60 (4.0-11.0) K/uL RBC 3.37 L (4.30-5.90) M/uL Hgb 9.4 L (12.0-16.0) g/dL Hct 28.7 L (36.0-46.0) % MCV 85.2 (80.0-98.0) fL MCH 27.9 (27.0-32.0) pg MCHC 32.8 (31.0-37.0) g/dL RDW Std Deviation 40.9 (28.0-62.0) fl RDW Coeff of Kwasi 13 (11.0-15.0) % Plt Count 382 (150-400) K/uL MPV 9.50 (7.40-12.00) fL Neut % (Auto) 60.9 (48.0-80.0) % Lymph % (Auto) 32.1 (16.0-40.0) % [place] % (Auto) 6.8 (0.0-15.0) % Eos % (Auto) 0.0 (0.0-7.0) % Baso % (Auto) 0.2 (0.0-1.5) % Neut # (Auto) 3.4 (1.4-5.7) K/uL Lymph # (Auto) 1.8 (0.6-2.4) K/uL [place] # (Auto) 0.4 (0.0-0.8) K/uL Eos # (Auto) 0.0 (0.0-0.7) K/uL Baso # (Auto) 0.0 (0.0-0.1) K/uL Nucleated RBC % 0.0 /100WBC Nucleated RBCs # 0 K/uL Sodium 144 (136-145) mmol/L Potassium 4.2 (3.5-5.1) mmol/L Chloride 108 H (98-107) mmol/L Carbon Dioxide 25.3 (21.0-32.0) mmol/L BUN 11 (7.0-18.0) mg/dL Creatinine 0.6 (0.6-1.0) mg/dL Est Cr Clr Drug Dosing 134.18 mL/min Estimated GFR (MDRD) > 60.0 ml/min Glucose 92 (74-106) mg/dL Calcium 7.4 L (8.5-10.1) mg/dL Phosphorus 3.9 (2.6-4.7) mg/dL Magnesium 1.8 (1.8-2.4) mg/dL Total Bilirubin 0.2 (0.2-1.0) mg/dL AST 55 H (15-37) IU/L ALT 54 (14-63) IU/L Alkaline Phosphatase 125 H (46-116) U/L Total Protein 5.1 L (6.4-8.2) g/dL Albumin 1.8 L (3.4-5.0) g/dL Globulin 3.3 (2.6-4.0) g/dL Albumin/Globulin Ratio 0.6 L (0.9-1.6) Result Diagrams: 09/05/21 04:50 09/05/21 04:50 Sepsis Event Note - Evaluation Sepsis Screening Result: No Definite Risk - Focused Exam Vital Signs: Vital Signs Temp Resp BP Pulse Ox 09/05/21 14:00 25 H 142/74 H 92 L 09/05/21 13:00 38 H 132/79 94 L 09/05/21 12:00 36.3 C 36 H 139/89 91 L 09/05/21 11:00 25 H 104/85 91 L 09/05/21 10:00 39 H 115/83 91 L 09/05/21 09:00 35 H 120/87 90 L 09/05/21 08:00 36.1 C 35 H 130/84 87 L 09/05/21 07:00 41 H 93/50 L 95 09/05/21 06:00 34 H 108/21 L 96 09/05/21 05:00 35.9 C L 20 132/83 86 L 09/05/21 04:00 42 H 101/63 92 L 09/05/21 03:00 36 H 86/48 L 90 L - Problem List & Annotations (1) COVID-19 SNOMED Code(s): 283315504 Code(s): U07.1 - COVID-19 Status: Acute Current Visit: Yes (2) Hypoxia SNOMED Code(s): 716891250 Code(s): R09.02 - HYPOXEMIA Status: Acute Current Visit: Yes (3) delivery due to maternal disorder, delivered, curr hospitaliz SNOMED Code(s): 783649195 Code(s): O99.892 - OTH DISEASES AND CONDITIONS COMPLICATING CHILDBIRTH Status: Acute Current Visit: No - Problem List Review Problem List Initiated/Reviewed/Updated: Yes - My Orders Last 24 Hours: My Active Orders 09/04/21 21:45 Remdesivir 100 mg Sodium Chloride 0.9% [Normal Saline AdvBag] 100 ml IV Q24H - Plan Plan:: 25-year-old female admitted for acute hypoxic respiratory failure secondary to Covid pneumonia Continue IV remdesivir and oral Decadron Continue Lovenox for DVT prophylaxis Combivent scheduled DuoNebs as needed for shortness of breath Incentive spirometry and proning to be encouraged Out of bed to chair when possible Regular diet s/p tocilizumab Patient has been counseled to pump and dump the breast milk till she is on remdesivir,
--- NOTE | 2021-09-05 15:00 | PN ---
THC Physician - Brief Progress [id number]/03/2021 14:56[facility] Martín Onofre, [place] - MWN (RUBIAN) - MWN ICUSUMIT ALEGRE, CONNIEID+Date of Service 09/05/2021 14:56HP I/Events of Note eICU Progress [id number] female being managed for acute hypoxemic respiratory f ailure secondary to COVID-19 pneumonia. Patient continues to require heated high flow nasal cannula at 40 L and 65% FiO2. Completing course of decardrom and remdesivir. s/p Tociluzimab. Overall patient with mild improvement.On cameraxthe patient appears to be comfortably laying in bed and tolerating h eated high flow nasal cannula, saturating 90%ReviewedVitalsEMR notesLabsAvailable imagingAvailable mi croMedicationseICU impressionsAcute hypoxemic respiratory failureCOVID-19 pneumoniaMild transaminitis Post partumQI measureseICU Recommendations:Continue supplemental oxygen via heated high flow nasal ca nnula and/or noninvasive ventilation as needed to maintain saturation of 90 to 94%Self proning as rose eratedMaintain euvolemia to net negative volume statusComplete course of systemic steroids and remdes ivirPump and discard breast milk while on remdesivirDaily LFTs and BMP, noted mild transminitsVTE pro phylaxis noted with LovenoxGI prophylaxis noted with PPIGlycemic control per protocol, blood pressure target 140-180Thank you for allowing us to participate in the care of your patient. Critical care; 1 0 minutes total evaluation time Interventions Major-Hypoxemia - evaluation and management, Infection - evaluation and management, Respiratory failure - evaluation and management
[2021-09-05] MEDS: Enoxaparin 40 MG/0.4 ML Syringe SUBCUT SCH (21:07)
[2021-09-05] MEDS: REMDESIVIR 100 MG in Sodium Chloride 0.9% 100 ML IV SCH (21:07)
[2021-09-06] MEDS: Albuterol/Ipratropium 4 GM Inhalation Spray INH SCH ×6 (01:30→21:11)
[2021-09-06 07:29] LABS: BLOOD UREA NITROGEN,BUN 15 mg/dL (7.0-18.0); CARBON DIOXIDE,CO2 22.3 mmol/L (21.0-32.0); CHLORIDE,CL 108 mmol/L (98-107); GLUCOSE RANDOM 75 mg/dL (74-106); POTASSIUM,K 3.5 mmol/L (3.5-5.1); SODIUM,NA 142 mmol/L (136-145)
[2021-09-06] MEDS: Pantoprazole 40 MG in Sodium Chloride 0.9% 10 ML IV SCH (08:06)
[2021-09-06] MEDS: Dexamethasone 4 MG Tab PO SCH (08:06)
[2021-09-06] MEDS: guaiFENesin/Dextromethorphan 100-10 MG/5 ML Soln 10 ML Cup PO PRN (14:32)
--- NOTE | 2021-09-06 14:44 | PCM.PN ---
- General Info Date of Service: 09/06/21 - Review of Systems Systems Review Comment:: shortness of breath with exertion, feeling a better today - Patient Data Vitals - Most Recent: Last Vital Signs Temp 36.8 C 09/06/21 13:00 Pulse 105 H 09/04/21 07:00 Resp 36 H 09/06/21 14:00 BP 110/51 L 09/06/21 14:00 Pulse Ox 89 L 09/06/21 14:00 Weight - Most Recent: 88.965 kg I&O - Last 24 Hours: Intake & Output 09/05/21 09/06/21 09/06/21 22:59 06:59 14:59 Intake Total 800 450 Output Total 1450 850 Balance -650 -400 Lab Results Last 24 Hours: Laboratory Results - last 24 hr 09/06/21 09/06/21 Range/Units 06:16 06:16 WBC 7.34 (4.0-11.0) K/uL RBC 3.53 L (4.30-5.90) M/uL Hgb 9.9 L (12.0-16.0) g/dL Hct 30.5 L (36.0-46.0) % MCV 86.4 (80.0-98.0) fL MCH 28.0 (27.0-32.0) pg MCHC 32.5 (31.0-37.0) g/dL RDW Std Deviation 39.0 (28.0-62.0) fl RDW Coeff of Kwasi 13 (11.0-15.0) % Plt Count 437 H (150-400) K/uL MPV 9.30 (7.40-12.00) fL Add Manual Diff YES Neutrophils % (Manual) 53 (48.0-80.0) % Band Neutrophils % 1 % Lymphocytes % (Manual) 43 H (16.0-40.0) % Monocytes % (Manual) 3 (0.0-15.0) % Absolute Seg Neuts 3.9 (1.4-5.7) Band Neutrophils # 0.1 Lymphocytes # (Manual) 3.2 H (0.6-2.4) Monocytes # (Manual) 0.2 (0.0-0.8) Sodium 142 (136-145) mmol/L Potassium 3.5 (3.5-5.1) mmol/L Chloride 108 H (98-107) mmol/L Carbon Dioxide 22.3 (21.0-32.0) mmol/L BUN 15 (7.0-18.0) mg/dL Creatinine 0.8 (0.6-1.0) mg/dL Est Cr Clr Drug Dosing 101.18 mL/min Estimated GFR (MDRD) > 60.0 ml/min Glucose 75 (74-106) mg/dL Calcium 7.7 L (8.5-10.1) mg/dL Total Bilirubin 0.2 (0.2-1.0) mg/dL AST 57 H (15-37) IU/L ALT 56 (14-63) IU/L Alkaline Phosphatase 123 H (46-116) U/L Total Protein 5.9 L (6.4-8.2) g/dL Albumin 2.0 L (3.4-5.0) g/dL Globulin 3.9 (2.6-4.0) g/dL Albumin/Globulin Ratio 0.5 L (0.9-1.6) Med Orders - Current: Current Medications Acetaminophen (Acetaminophen 325 Mg Tab) 650 mg PO Q6H PRN PRN Reason: Pain (Mild 1-3)/fever Last Admin: 09/04/21 12:33 Dose: 650 mg Documented by: Albuterol/Ipratropium (Albuterol/Ipratropium 3.0-0.5 Mg/3 Ml Neb Soln) 3 ml NEB Q4HRRT PRN PRN Reason: Shortness Of Breath/wheezing Albuterol/Ipratropium (Albuterol/Ipratropium 4 Gm Inhalation [place]) 0 gm INH Q4H [facility] Last Admin: 09/06/21 12:51 Dose: 1 puff Documented by: Dexamethasone (Dexamethasone 4 Mg Tab) 6 mg PO DAILY [facility] Last Admin: 09/06/21 08:06 Dose: 6 mg Documented by: Enoxaparin Sodium (Enoxaparin 40 Mg/0.4 Ml Syringe) 40 mg SUBCUT Q24H [facility] Last Admin: 09/05/21 21:07 Dose: 40 mg Documented by: Guaifenesin/Dextromethorphan (Guaifenesin/Dextromethorphan 100-10 Mg/5 Ml Soln 10 Ml Cup) 10 ml PO Q6H PRN PRN Reason: Cough Last Admin: 09/06/21 14:32 Dose: 10 ml Documented by: Remdesivir 100 mg/ Sodium (Chloride) 100 mls @ 100 mls/hr IV Q24H [facility] Stop: 09/07/21 22:44 Last Admin: 09/05/21 21:07 Dose: 100 mls/hr Documented by: Pantoprazole Sodium 40 mg/ (Sodium Chloride) 10 mls @ 300 mls/hr IV Q24H [facility] Last Admin: 09/06/21 08:06 Dose: 300 mls/hr Documented by: Ondansetron HCl (Ondansetron 4 Mg/2 Ml Sdv) 4 mg IVPUSH Q4H PRN PRN Reason: Nausea/Vomiting Sodium Chloride (Sodium Chloride 0.9% 10 Ml Syringe) 10 ml FLUSH ASDIRECTED PRN PRN Reason: Keep Vein Open Last Admin: 09/03/21 18:01 Dose: 10 ml Documented by: Sodium Chloride (Sodium Chloride 0.9% 2.5 Ml Syringe) 2.5 ml FLUSH ASDIRECTED PRN PRN Reason: Keep Vein Open Last Admin: 09/03/21 18:00 Dose: 2.5 ml Documented by: Discontinued Medications Dexamethasone (Dexamethasone 10 Mg/Ml Sdv) 6 mg IVPUSH ONETIME ONE Stop: 09/03/21 17:43 Last Admin: 09/03/21 18:01 Dose: 6 mg Documented by: Lactated Ringer's (Ringers, Lactated) 1,000 mls @ 999 mls/hr IV ASDIRECTED [facility] Last Admin: 09/03/21 18:00 Dose: 999 mls/hr Documented by: Remdesivir 200 mg/ Sodium (Chloride) 250 mls @ 250 mls/hr IV ONETIME ONE Stop: 09/03/21 20:44 Last Admin: 09/03/21 21:34 Dose: 250 mls/hr Documented by: Tocilizumab 750 mg/ Sodium (Chloride) 137.5 mls @ 137.5 mls/hr IV ONETIME ONE Stop: 09/04/21 13:31 Last Admin: 09/04/21 14:14 Dose: 137.5 mls/hr Documented by: Iopamidol (Iopamidol 755 Mg/Ml 500 Ml Multipack Bottle) 100 ml IVPUSH ONETIME STA Stop: 09/03/21 18:53 Last Admin: 09/03/21 18:52 Dose: 100 ml Documented by: - Exam General: Alert, Oriented Lungs: Normal Respiratory Effort, Rhonchi Cardiovascular: Regular Rate, Regular Rhythm GI/Abdominal Exam: Normal Bowel Sounds, Soft, Non-Tender, No Distention Extremities: Non-Tender, No Pedal Edema Skin: Warm, Dry, Intact Neurological: No New Focal Deficit - Patient Data Lab Results Last 24 hrs: Laboratory Results - last 24 hr 09/06/21 09/06/21 Range/Units 06:16 06:16 WBC 7.34 (4.0-11.0) K/uL RBC 3.53 L (4.30-5.90) M/uL Hgb 9.9 L (12.0-16.0) g/dL Hct 30.5 L (36.0-46.0) % MCV 86.4 (80.0-98.0) fL MCH 28.0 (27.0-32.0) pg MCHC 32.5 (31.0-37.0) g/dL RDW Std Deviation 39.0 (28.0-62.0) fl RDW Coeff of Kwasi 13 (11.0-15.0) % Plt Count 437 H (150-400) K/uL MPV 9.30 (7.40-12.00) fL Add Manual Diff YES Neutrophils % (Manual) 53 (48.0-80.0) % Band Neutrophils % 1 % Lymphocytes % (Manual) 43 H (16.0-40.0) % Monocytes % (Manual) 3 (0.0-15.0) % Absolute Seg Neuts 3.9 (1.4-5.7) Band Neutrophils # 0.1 Lymphocytes # (Manual) 3.2 H (0.6-2.4) Monocytes # (Manual) 0.2 (0.0-0.8) Sodium 142 (136-145) mmol/L Potassium 3.5 (3.5-5.1) mmol/L Chloride 108 H (98-107) mmol/L Carbon Dioxide 22.3 (21.0-32.0) mmol/L BUN 15 (7.0-18.0) mg/dL Creatinine 0.8 (0.6-1.0) mg/dL Est Cr Clr Drug Dosing 101.18 mL/min Estimated GFR (MDRD) > 60.0 ml/min Glucose 75 (74-106) mg/dL Calcium 7.7 L (8.5-10.1) mg/dL Total Bilirubin 0.2 (0.2-1.0) mg/dL AST 57 H (15-37) IU/L ALT 56 (14-63) IU/L Alkaline Phosphatase 123 H (46-116) U/L Total Protein 5.9 L (6.4-8.2) g/dL Albumin 2.0 L (3.4-5.0) g/dL Globulin 3.9 (2.6-4.0) g/dL Albumin/Globulin Ratio 0.5 L (0.9-1.6) Result Diagrams: 09/06/21 06:16 09/06/21 06:16 Sepsis Event Note - Evaluation Sepsis Screening Result: No Definite Risk - Focused Exam Vital Signs: Vital Signs Temp Resp BP Pulse Ox 09/06/21 14:00 36 H 110/51 L 89 L 09/06/21 13:00 36.8 C 19 133/69 87 L 09/06/21 12:00 17 124/74 90 L 09/06/21 11:00 25 H 89 L 09/06/21 10:00 21 H 123/65 89 L 09/06/21 09:00 32 H 106/54 L 92 L 09/06/21 08:00 36.4 C 37 H 125/70 87 L 09/06/21 06:58 34 H 116/74 89 L 09/06/21 06:00 32 H 120/78 89 L 09/06/21 05:00 27 H 124/74 92 L 09/06/21 04:00 35.7 C L 27 H 131/74 92 L 09/06/21 03:00 27 H 118/75 93 L - Problem List & Annotations (1) COVID-19 SNOMED Code(s): 147688364 Code(s): U07.1 - COVID-19 Status: Acute Current Visit: Yes (2) Hypoxia SNOMED Code(s): 646715117 Code(s): R09.02 - HYPOXEMIA Status: Acute Current Visit: Yes - Problem List Review Problem List Initiated/Reviewed/Updated: Yes - My Orders Last 24 Hours: My Active Orders 09/06/21 14:27 Dextromethorphan/guaiFENesin [Robitussin DM] 10 ml PO Q6H PRN 09/07/21 05:11 CBC WITH AUTO DIFF [HEME] AM COMPREHENSIVE METABOLIC PN,CMP [CHEM] AM - Plan Plan:: 25-year-old female admitted for acute hypoxic respiratory failure secondary to Covid pneumonia COVID pneumonia: remdesivir and oral Decadron s/p tocilizumab Continue Lovenox for DVT prophylaxis Patient has been counseled to pump and dump the breast milk till she is off remdesivir,
[2021-09-06] MEDS: REMDESIVIR 100 MG in Sodium Chloride 0.9% 100 ML IV SCH (21:11)
[2021-09-06] MEDS: Enoxaparin 40 MG/0.4 ML Syringe SUBCUT SCH (21:11)
[2021-09-07] MEDS: Albuterol/Ipratropium 4 GM Inhalation Spray INH SCH ×6 (01:59→21:10)
[2021-09-07] MEDS: guaiFENesin/Dextromethorphan 100-10 MG/5 ML Soln 10 ML Cup PO PRN (02:10)
[2021-09-07 06:20] LABS: BLOOD UREA NITROGEN,BUN 13 mg/dL (7.0-18.0); CHLORIDE,CL 107 mmol/L (98-107); GLUCOSE RANDOM 78 mg/dL (74-106); POTASSIUM,K 3.7 mmol/L (3.5-5.1); SODIUM,NA 142 mmol/L (136-145)
[2021-09-07] MEDS: Pantoprazole 40 MG Tab.CR PO SCH (09:01)
[2021-09-07] MEDS: Dexamethasone 4 MG Tab PO SCH (09:01)
--- NOTE | 2021-09-07 09:05 | PCM.PN ---
- General Info Date of Service: 09/07/21 - Review of Systems Systems Review Comment:: reports shortness of breath with exertion, fatigue - Patient Data Vitals - Most Recent: Last Vital Signs Temp 36.3 C 09/07/21 03:00 Pulse 105 H 09/04/21 07:00 Resp 33 H 09/07/21 07:00 BP 107/63 09/07/21 07:00 Pulse Ox 87 L 09/07/21 07:00 Weight - Most Recent: 88.088 kg I&O - Last 24 Hours: Intake & Output 09/06/21 09/07/21 09/07/21 22:59 06:59 14:59 Intake Total 1000 450 Output Total 1300 625 Balance -300 -175 Lab Results Last 24 Hours: Laboratory Results - last 24 hr 09/07/21 09/07/21 Range/Units 05:25 05:25 WBC 7.13 (4.0-11.0) K/uL RBC 3.51 L (4.30-5.90) M/uL Hgb 9.8 L (12.0-16.0) g/dL Hct 29.6 L (36.0-46.0) % MCV 84.3 (80.0-98.0) fL MCH 27.9 (27.0-32.0) pg MCHC 33.1 (31.0-37.0) g/dL RDW Std Deviation 39.7 (28.0-62.0) fl RDW Coeff of Kwasi 13 (11.0-15.0) % Plt Count 433 H (150-400) K/uL MPV 9.30 (7.40-12.00) fL Add Manual Diff YES Neutrophils % (Manual) 58 (48.0-80.0) % Band Neutrophils % 1 % Lymphocytes % (Manual) 37 (16.0-40.0) % Monocytes % (Manual) 4 (0.0-15.0) % Nucleated RBC % 1.4 /100WBC Absolute Seg Neuts 4.1 (1.4-5.7) Band Neutrophils # 0.1 Lymphocytes # (Manual) 2.6 H (0.6-2.4) Monocytes # (Manual) 0.3 (0.0-0.8) Nucleated RBCs # 0 K/uL Sodium 142 (136-145) mmol/L Potassium 3.7 (3.5-5.1) mmol/L Chloride 107 (98-107) mmol/L Carbon Dioxide 24.0 (21.0-32.0) mmol/L BUN 13 (7.0-18.0) mg/dL Creatinine 0.7 (0.6-1.0) mg/dL Est Cr Clr Drug Dosing 115.64 mL/min Estimated GFR (MDRD) > 60.0 ml/min Glucose 78 (74-106) mg/dL Calcium 7.9 L (8.5-10.1) mg/dL Total Bilirubin 0.3 (0.2-1.0) mg/dL AST 48 H (15-37) IU/L ALT 59 (14-63) IU/L Alkaline Phosphatase 116 (46-116) U/L Total Protein 5.2 L (6.4-8.2) g/dL Albumin 2.1 L (3.4-5.0) g/dL Globulin 3.1 (2.6-4.0) g/dL Albumin/Globulin Ratio 0.7 L (0.9-1.6) Med Orders - Current: Current Medications Acetaminophen (Acetaminophen 325 Mg Tab) 650 mg PO Q6H PRN PRN Reason: Pain (Mild 1-3)/fever Last Admin: 09/04/21 12:33 Dose: 650 mg Documented by: Albuterol/Ipratropium (Albuterol/Ipratropium 3.0-0.5 Mg/3 Ml Neb Soln) 3 ml NEB Q4HRRT PRN PRN Reason: Shortness Of Breath/wheezing Albuterol/Ipratropium (Albuterol/Ipratropium 4 Gm Inhalation [place]) 0 gm INH Q4H [facility] Last Admin: 09/07/21 05:48 Dose: 1 puff Documented by: Dexamethasone (Dexamethasone 4 Mg Tab) 6 mg PO DAILY [facility] Last Admin: 09/07/21 09:01 Dose: 6 mg Documented by: Enoxaparin Sodium (Enoxaparin 40 Mg/0.4 Ml Syringe) 40 mg SUBCUT Q24H [facility] Last Admin: 09/06/21 21:11 Dose: 40 mg Documented by: Guaifenesin/Dextromethorphan (Guaifenesin/Dextromethorphan 100-10 Mg/5 Ml Soln 10 Ml Cup) 10 ml PO Q6H PRN PRN Reason: Cough Last Admin: 09/07/21 02:10 Dose: 10 ml Documented by: Remdesivir 100 mg/ Sodium (Chloride) 100 mls @ 100 mls/hr IV Q24H [facility] Stop: 09/07/21 22:44 Last Admin: 09/06/21 21:11 Dose: 100 mls/hr Documented by: Ondansetron HCl (Ondansetron 4 Mg/2 Ml Sdv) 4 mg IVPUSH Q4H PRN PRN Reason: Nausea/Vomiting Pantoprazole Sodium (Pantoprazole 40 Mg Tab.Cr) 40 mg PO DAILY [facility] Last Admin: 09/07/21 09:01 Dose: 40 mg Documented by: Sodium Chloride (Sodium Chloride 0.9% 10 Ml Syringe) 10 ml FLUSH ASDIRECTED PRN PRN Reason: Keep Vein Open Last Admin: 09/03/21 18:01 Dose: 10 ml Documented by: Sodium Chloride (Sodium Chloride 0.9% 2.5 Ml Syringe) 2.5 ml FLUSH ASDIRECTED PRN PRN Reason: Keep Vein Open Last Admin: 09/03/21 18:00 Dose: 2.5 ml Documented by: Discontinued Medications Dexamethasone (Dexamethasone 10 Mg/Ml Sdv) 6 mg IVPUSH ONETIME ONE Stop: 09/03/21 17:43 Last Admin: 09/03/21 18:01 Dose: 6 mg Documented by: Lactated Ringer's (Ringers, Lactated) 1,000 mls @ 999 mls/hr IV ASDIRECTED [facility] Last Admin: 09/03/21 18:00 Dose: 999 mls/hr Documented by: Remdesivir 200 mg/ Sodium (Chloride) 250 mls @ 250 mls/hr IV ONETIME ONE Stop: 09/03/21 20:44 Last Admin: 09/03/21 21:34 Dose: 250 mls/hr Documented by: Pantoprazole Sodium 40 mg/ (Sodium Chloride) 10 mls @ 300 mls/hr IV Q24H [facility] Last Admin: 09/06/21 08:06 Dose: 300 mls/hr Documented by: Tocilizumab 750 mg/ Sodium (Chloride) 137.5 mls @ 137.5 mls/hr IV ONETIME ONE Stop: 09/04/21 13:31 Last Admin: 09/04/21 14:14 Dose: 137.5 mls/hr Documented by: Iopamidol (Iopamidol 755 Mg/Ml 500 Ml Multipack Bottle) 100 ml IVPUSH ONETIME STA Stop: 09/03/21 18:53 Last Admin: 09/03/21 18:52 Dose: 100 ml Documented by: - Exam General: Alert, Oriented Neck: Supple Lungs: Normal Respiratory Effort, Rhonchi Cardiovascular: Regular Rate, Regular Rhythm GI/Abdominal Exam: Normal Bowel Sounds, Soft, Non-Tender Extremities: Non-Tender, No Pedal Edema Skin: Warm, Dry, Intact Neurological: No New Focal Deficit - Patient Data Lab Results Last 24 hrs: Laboratory Results - last 24 hr 09/07/21 09/07/21 Range/Units 05:25 05:25 WBC 7.13 (4.0-11.0) K/uL RBC 3.51 L (4.30-5.90) M/uL Hgb 9.8 L (12.0-16.0) g/dL Hct 29.6 L (36.0-46.0) % MCV 84.3 (80.0-98.0) fL MCH 27.9 (27.0-32.0) pg MCHC 33.1 (31.0-37.0) g/dL RDW Std Deviation 39.7 (28.0-62.0) fl RDW Coeff of Kwasi 13 (11.0-15.0) % Plt Count 433 H (150-400) K/uL MPV 9.30 (7.40-12.00) fL Add Manual Diff YES Neutrophils % (Manual) 58 (48.0-80.0) % Band Neutrophils % 1 % Lymphocytes % (Manual) 37 (16.0-40.0) % Monocytes % (Manual) 4 (0.0-15.0) % Nucleated RBC % 1.4 /100WBC Absolute Seg Neuts 4.1 (1.4-5.7) Band Neutrophils # 0.1 Lymphocytes # (Manual) 2.6 H (0.6-2.4) Monocytes # (Manual) 0.3 (0.0-0.8) Nucleated RBCs # 0 K/uL Sodium 142 (136-145) mmol/L Potassium 3.7 (3.5-5.1) mmol/L Chloride 107 (98-107) mmol/L Carbon Dioxide 24.0 (21.0-32.0) mmol/L BUN 13 (7.0-18.0) mg/dL Creatinine 0.7 (0.6-1.0) mg/dL Est Cr Clr Drug Dosing 115.64 mL/min Estimated GFR (MDRD) > 60.0 ml/min Glucose 78 (74-106) mg/dL Calcium 7.9 L (8.5-10.1) mg/dL Total Bilirubin 0.3 (0.2-1.0) mg/dL AST 48 H (15-37) IU/L ALT 59 (14-63) IU/L Alkaline Phosphatase 116 (46-116) U/L Total Protein 5.2 L (6.4-8.2) g/dL Albumin 2.1 L (3.4-5.0) g/dL Globulin 3.1 (2.6-4.0) g/dL Albumin/Globulin Ratio 0.7 L (0.9-1.6) Result Diagrams: 09/07/21 05:25 09/07/21 05:25 Sepsis Event Note - Evaluation Sepsis Screening Result: No Definite Risk - Focused Exam Vital Signs: Vital Signs Temp Resp BP Pulse Ox 09/07/21 07:00 33 H 107/63 87 L 09/07/21 06:00 24 H 110/64 90 L 09/07/21 05:00 29 H 100/55 L 91 L 09/07/21 04:00 25 H 121/72 89 L 09/07/21 03:00 36.3 C 27 H 115/78 90 L 09/07/21 02:00 21 H 126/57 L 89 L 09/07/21 01:00 32 H 112/50 L 95 09/07/21 00:00 36.3 C 22 H 108/58 L 95 09/06/21 23:00 10 L 124/62 90 L 09/06/21 22:00 26 H 123/64 91 L - Problem List & Annotations (1) COVID-19 SNOMED Code(s): 586029719 Code(s): U07.1 - COVID-19 Status: Acute Current Visit: Yes (2) Hypoxia SNOMED Code(s): 685380968 Code(s): R09.02 - HYPOXEMIA Status: Acute Current Visit: Yes - Problem List Review Problem List Initiated/Reviewed/Updated: Yes - My Orders Last 24 Hours: My Active Orders 09/06/21 14:27 Dextromethorphan/guaiFENesin [Robitussin DM] 10 ml PO Q6H PRN 09/08/21 05:11 CBC WITH AUTO DIFF [HEME] AM COMPREHENSIVE METABOLIC PN,CMP [CHEM] AM - Plan Plan:: 25-year-old female admitted for acute hypoxic respiratory failure secondary to Covid pneumonia COVID pneumonia: remdesivir and oral Decadron, s/p tocilizumab Continue Lovenox for DVT prophylaxis Patient has been counseled to pump and dump the breast milk till she is off remdesivir,
[2021-09-07] MEDS: Enoxaparin 40 MG/0.4 ML Syringe SUBCUT SCH (21:10)
[2021-09-07] MEDS: REMDESIVIR 100 MG in Sodium Chloride 0.9% 100 ML IV SCH (21:10)
[2021-09-08] MEDS: Albuterol/Ipratropium 4 GM Inhalation Spray INH SCH ×6 (01:12→21:38)
[2021-09-08] MEDS: guaiFENesin/Dextromethorphan 100-10 MG/5 ML Soln 10 ML Cup PO PRN ×2 (01:12→21:53)
[2021-09-08 07:01] LABS: BLOOD UREA NITROGEN,BUN 13 mg/dL (7.0-18.0); CARBON DIOXIDE,CO2 24.4 mmol/L (21.0-32.0); CHLORIDE,CL 106 mmol/L (98-107); GLUCOSE RANDOM 91 mg/dL (74-106); POTASSIUM,K 3.6 mmol/L (3.5-5.1); SODIUM,NA 141 mmol/L (136-145)
[2021-09-08] MEDS: Pantoprazole 40 MG Tab.CR PO SCH (09:00)
[2021-09-08] MEDS: Dexamethasone 4 MG Tab PO SCH (09:00)
--- NOTE | 2021-09-08 16:39 | PCM.PN ---
- General Info Date of Service: 09/08/21 Admission Dx/Problem (Free Text): Admission Diagnosis/Problem Admission Diagnosis/Problem Hypoxia Subjective Update: Patient seen at bedside, having her breakfast comfortably, no acute distress , at bedside Functional Status: Reports: Tolerating Diet, Ambulating, Urinating - Review of Systems General: Reports: Malaise. Denies: Weakness, Fatigue, Chills Pulmonary: Reports: Shortness of Breath, Cough, Sputum. Denies: Pleuritic Chest Pain Cardiovascular: Reports: Dyspnea on Exertion. Denies: Chest Pain, Palpitations Gastrointestinal: Denies: Abdominal Pain, Constipation, Decreased Appetite Genitourinary: Denies: Dysuria, Frequency, Burning Musculoskeletal: Denies: Neck Pain, Shoulder Pain, Arm Pain Skin: Denies: Cyanosis, Jaundice, Mottled - Patient Data Vitals - Most Recent: Last Vital Signs Temp 36.3 C 09/08/21 15:00 Pulse 105 H 09/04/21 07:00 Resp 27 H 09/08/21 15:00 BP 116/71 09/08/21 11:47 Pulse Ox 93 L 09/08/21 15:00 Weight - Most Recent: 87.861 kg I&O - Last 24 Hours: Intake & Output 09/08/21 09/08/21 09/08/21 06:59 14:59 22:59 Intake Total 800 Output Total 600 Balance 200 Lab Results Last 24 Hours: Laboratory Results - last 24 hr 09/08/21 09/08/21 Range/Units 05:30 05:30 WBC 8.55 (4.0-11.0) K/uL RBC 3.83 L (4.30-5.90) M/uL Hgb 10.6 L (12.0-16.0) g/dL Hct 32.6 L (36.0-46.0) % MCV 85.1 (80.0-98.0) fL MCH 27.7 (27.0-32.0) pg MCHC 32.5 (31.0-37.0) g/dL RDW Std Deviation 40.0 (28.0-62.0) fl RDW Coeff of Kwasi 13 (11.0-15.0) % Plt Count 473 H (150-400) K/uL MPV 9.30 (7.40-12.00) fL Neut % (Auto) 73.3 (48.0-80.0) % Lymph % (Auto) 21.3 (16.0-40.0) % [place] % (Auto) 4.3 (0.0-15.0) % Eos % (Auto) 0.7 (0.0-7.0) % Baso % (Auto) 0.4 (0.0-1.5) % Neut # (Auto) 6.3 H (1.4-5.7) K/uL Lymph # (Auto) 1.8 (0.6-2.4) K/uL [place] # (Auto) 0.4 (0.0-0.8) K/uL Eos # (Auto) 0.1 (0.0-0.7) K/uL Baso # (Auto) 0.0 (0.0-0.1) K/uL Nucleated RBC % 0.7 /100WBC Nucleated RBCs # 0 K/uL Sodium 141 (136-145) mmol/L Potassium 3.6 (3.5-5.1) mmol/L Chloride 106 (98-107) mmol/L Carbon Dioxide 24.4 (21.0-32.0) mmol/L BUN 13 (7.0-18.0) mg/dL Creatinine 0.7 (0.6-1.0) mg/dL Est Cr Clr Drug Dosing 115.64 mL/min Estimated GFR (MDRD) > 60.0 ml/min Glucose 91 (74-106) mg/dL Calcium 7.4 L (8.5-10.1) mg/dL Total Bilirubin 0.3 (0.2-1.0) mg/dL AST 38 H (15-37) IU/L ALT 52 (14-63) IU/L Alkaline Phosphatase 127 H (46-116) U/L Total Protein 5.8 L (6.4-8.2) g/dL Albumin 2.0 L (3.4-5.0) g/dL Globulin 3.8 (2.6-4.0) g/dL Albumin/Globulin Ratio 0.5 L (0.9-1.6) Med Orders - Current: Current Medications Acetaminophen (Acetaminophen 325 Mg Tab) 650 mg PO Q6H PRN PRN Reason: Pain (Mild 1-3)/fever Last Admin: 09/04/21 12:33 Dose: 650 mg Documented by: Albuterol/Ipratropium (Albuterol/Ipratropium 3.0-0.5 Mg/3 Ml Neb Soln) 3 ml NEB Q4HRRT PRN PRN Reason: Shortness Of Breath/wheezing Albuterol/Ipratropium (Albuterol/Ipratropium 4 Gm Inhalation [place]) 0 gm INH Q4H [facility] Last Admin: 09/08/21 14:00 Dose: 1 puff Documented by: Dexamethasone (Dexamethasone 4 Mg Tab) 6 mg PO DAILY [facility] Last Admin: 09/08/21 09:00 Dose: 6 mg Documented by: Enoxaparin Sodium (Enoxaparin 40 Mg/0.4 Ml Syringe) 40 mg SUBCUT Q24H [facility] Last Admin: 09/07/21 21:10 Dose: 40 mg Documented by: Guaifenesin/Dextromethorphan (Guaifenesin/Dextromethorphan 100-10 Mg/5 Ml Soln 10 Ml Cup) 10 ml PO Q6H PRN PRN Reason: Cough Last Admin: 09/08/21 01:12 Dose: 10 ml Documented by: Ondansetron HCl (Ondansetron 4 Mg/2 Ml Sdv) 4 mg IVPUSH Q4H PRN PRN Reason: Nausea/Vomiting Pantoprazole Sodium (Pantoprazole 40 Mg Tab.Cr) 40 mg PO DAILY [facility] Last Admin: 09/08/21 09:00 Dose: 40 mg Documented by: Sodium Chloride (Sodium Chloride 0.9% 10 Ml Syringe) 10 ml FLUSH ASDIRECTED PRN PRN Reason: Keep Vein Open Last Admin: 09/03/21 18:01 Dose: 10 ml Documented by: Sodium Chloride (Sodium Chloride 0.9% 2.5 Ml Syringe) 2.5 ml FLUSH ASDIRECTED PRN PRN Reason: Keep Vein Open Last Admin: 09/03/21 18:00 Dose: 2.5 ml Documented by: Discontinued Medications Dexamethasone (Dexamethasone 10 Mg/Ml Sdv) 6 mg IVPUSH ONETIME ONE Stop: 09/03/21 17:43 Last Admin: 09/03/21 18:01 Dose: 6 mg Documented by: Lactated Ringer's (Ringers, Lactated) 1,000 mls @ 999 mls/hr IV ASDIRECTED [facility] Last Admin: 09/03/21 18:00 Dose: 999 mls/hr Documented by: Remdesivir 200 mg/ Sodium (Chloride) 250 mls @ 250 mls/hr IV ONETIME ONE Stop: 09/03/21 20:44 Last Admin: 09/03/21 21:34 Dose: 250 mls/hr Documented by: Remdesivir 100 mg/ Sodium (Chloride) 100 mls @ 100 mls/hr IV Q24H [place] Stop: 09/07/21 22:44 Last Admin: 09/07/21 21:10 Dose: 100 mls/hr Documented by: Pantoprazole Sodium 40 mg/ (Sodium Chloride) 10 mls @ 300 mls/hr IV Q24H [facility] Last Admin: 09/06/21 08:06 Dose: 300 mls/hr Documented by: Tocilizumab 750 mg/ Sodium (Chloride) 137.5 mls @ 137.5 mls/hr IV ONETIME ONE Stop: 09/04/21 13:31 Last Admin: 09/04/21 14:14 Dose: 137.5 mls/hr Documented by: Iopamidol (Iopamidol 755 Mg/Ml 500 Ml Multipack Bottle) 100 ml IVPUSH ONETIME STA Stop: 09/03/21 18:53 Last Admin: 09/03/21 18:52 Dose: 100 ml Documented by: - Exam Quality Assessment: Supplemental Oxygen General: Alert, Oriented Lungs: Decreased Breath Sounds, Crackles Cardiovascular: Regular Rate, Regular Rhythm GI/Abdominal Exam: Normal Bowel Sounds, Soft, Non-Tender - Patient Data Lab Results Last 24 hrs: Laboratory Results - last 24 hr 09/08/21 09/08/21 Range/Units 05:30 05:30 WBC 8.55 (4.0-11.0) K/uL RBC 3.83 L (4.30-5.90) M/uL Hgb 10.6 L (12.0-16.0) g/dL Hct 32.6 L (36.0-46.0) % MCV 85.1 (80.0-98.0) fL MCH 27.7 (27.0-32.0) pg MCHC 32.5 (31.0-37.0) g/dL RDW Std Deviation 40.0 (28.0-62.0) fl RDW Coeff of Kwasi 13 (11.0-15.0) % Plt Count 473 H (150-400) K/uL MPV 9.30 (7.40-12.00) fL Neut % (Auto) 73.3 (48.0-80.0) % Lymph % (Auto) 21.3 (16.0-40.0) % [place] % (Auto) 4.3 (0.0-15.0) % Eos % (Auto) 0.7 (0.0-7.0) % Baso % (Auto) 0.4 (0.0-1.5) % Neut # (Auto) 6.3 H (1.4-5.7) K/uL Lymph # (Auto) 1.8 (0.6-2.4) K/uL [place] # (Auto) 0.4 (0.0-0.8) K/uL Eos # (Auto) 0.1 (0.0-0.7) K/uL Baso # (Auto) 0.0 (0.0-0.1) K/uL Nucleated RBC % 0.7 /100WBC Nucleated RBCs # 0 K/uL Sodium 141 (136-145) mmol/L Potassium 3.6 (3.5-5.1) mmol/L Chloride 106 (98-107) mmol/L Carbon Dioxide 24.4 (21.0-32.0) mmol/L BUN 13 (7.0-18.0) mg/dL Creatinine 0.7 (0.6-1.0) mg/dL Est Cr Clr Drug Dosing 115.64 mL/min Estimated GFR (MDRD) > 60.0 ml/min Glucose 91 (74-106) mg/dL Calcium 7.4 L (8.5-10.1) mg/dL Total Bilirubin 0.3 (0.2-1.0) mg/dL AST 38 H (15-37) IU/L ALT 52 (14-63) IU/L Alkaline Phosphatase 127 H (46-116) U/L Total Protein 5.8 L (6.4-8.2) g/dL Albumin 2.0 L (3.4-5.0) g/dL Globulin 3.8 (2.6-4.0) g/dL Albumin/Globulin Ratio 0.5 L (0.9-1.6) Result Diagrams: 09/08/21 05:30 09/08/21 05:30 Sepsis Event Note - Evaluation Sepsis Screening Result: No Definite Risk - Focused Exam Vital Signs: Vital Signs Temp Resp BP Pulse Ox 09/08/21 15:00 36.3 C 27 H 93 L 09/08/21 14:00 36.3 C 21 H 92 L 09/08/21 13:00 36.3 C 29 H 92 L 09/08/21 11:47 36.3 C 25 H 116/71 94 L 09/08/21 11:00 36.3 C 22 H 130/72 93 L 09/08/21 10:00 36.3 C 29 H 90 L 09/08/21 09:00 36.3 C 29 H 126/79 90 L 09/08/21 08:00 36.3 C 23 H 111/61 91 L 09/08/21 07:00 23 H 111/61 91 L 09/08/21 06:00 17 110/53 L 88 L 09/08/21 05:00 36.3 C 32 H 122/72 90 L - Problem List & Annotations (1) COVID-19 SNOMED Code(s): 468570614 Code(s): U07.1 - COVID-19 Status: Acute Current Visit: Yes (2) Hypoxia SNOMED Code(s): 129344800 Code(s): R09.02 - HYPOXEMIA Status: Acute Current Visit: Yes (3) delivery due to maternal disorder, delivered, curr hospitaliz SNOMED Code(s): 698636433 Code(s): O99.892 - OTH DISEASES AND CONDITIONS COMPLICATING CHILDBIRTH Status: Acute Current Visit: No - Problem List Review Problem List Initiated/Reviewed/Updated: Yes - Plan Plan:: 25-year-old female admitted for acute hypoxic respiratory failure secondary to Covid pneumonia COVID pneumonia: remdesivir and oral Decadron, s/p tocilizumab Continue Lovenox for DVT prophylaxis Patient has been counseled to pump and dump the breast milk till she is off remdesivir, Continue to wean off the oxygen currently needing 12 to 15 L of high flow
[2021-09-08] MEDS ORDERED: Melatonin 3 MG Tab PO PRN (21:14)
[2021-09-08] MEDS: Enoxaparin 40 MG/0.4 ML Syringe SUBCUT SCH (21:38)
[2021-09-09] MEDS: Albuterol/Ipratropium 4 GM Inhalation Spray INH SCH ×6 (01:13→21:23)
[2021-09-09] MEDS: guaiFENesin/Dextromethorphan 100-10 MG/5 ML Soln 10 ML Cup PO PRN ×2 (06:30→21:23)
[2021-09-09 07:25] LABS: BLOOD UREA NITROGEN,BUN 14 mg/dL (7.0-18.0); CHLORIDE,CL 106 mmol/L (98-107); GLUCOSE RANDOM 96 mg/dL (74-106); POTASSIUM,K 3.4 mmol/L (3.5-5.1); SODIUM,NA 141 mmol/L (136-145)
[2021-09-09] MEDS: Dexamethasone 4 MG Tab PO SCH (09:15)
[2021-09-09] MEDS: Pantoprazole 40 MG Tab.CR PO SCH (09:15)
[2021-09-09] MEDS ORDERED: Potassium Chloride 20 MEQ Tab.ER PO ONE (10:15)
--- NOTE | 2021-09-09 12:30 | PCM.PN ---
- General Info Date of Service: 09/09/21 Admission Dx/Problem (Free Text): Admission Diagnosis/Problem Admission Diagnosis/Problem Hypoxia Subjective Update: Patient seen at bedside, no acute distress Functional Status: Reports: Tolerating Diet, Ambulating, Urinating - Review of Systems General: Reports: Fatigue, Malaise. Denies: Fever, Weakness, Chills Pulmonary: Reports: Shortness of Breath, Cough, Sputum. Denies: Pleuritic Chest Pain Cardiovascular: Reports: Dyspnea on Exertion. Denies: Chest Pain, Palpitations, Orthopnea Gastrointestinal: Denies: Abdominal Pain, Constipation, Decreased Appetite Genitourinary: Denies: Dysuria, Frequency, Burning Musculoskeletal: Denies: Neck Pain, Shoulder Pain, Arm Pain Skin: Denies: Cyanosis, Jaundice, Mottled Neurological: Denies: Confusion, Dizziness, Headache - Patient Data Vitals - Most Recent: Last Vital Signs Temp 36.7 C 09/09/21 08:00 Pulse 105 H 09/04/21 07:00 Resp 27 H 09/09/21 12:00 BP 113/76 09/09/21 10:00 Pulse Ox 90 L 09/09/21 12:00 Weight - Most Recent: 87.543 kg I&O - Last 24 Hours: Intake & Output 09/08/21 09/09/21 09/09/21 23:59 06:59 14:59 Intake Total Output Total Balance Lab Results Last 24 Hours: Laboratory Results - last 24 hr 09/09/21 09/09/21 Range/Units 06:15 06:15 WBC 10.68 (4.0-11.0) K/uL RBC 4.07 L (4.30-5.90) M/uL Hgb 11.2 L (12.0-16.0) g/dL Hct 34.6 L (36.0-46.0) % MCV 85.0 (80.0-98.0) fL MCH 27.5 (27.0-32.0) pg MCHC 32.4 (31.0-37.0) g/dL RDW Std Deviation 39.7 (28.0-62.0) fl RDW Coeff of Kwasi 13 (11.0-15.0) % Plt Count 472 H (150-400) K/uL MPV 9.60 (7.40-12.00) fL Neut % (Auto) 78.1 (48.0-80.0) % Lymph % (Auto) 15.8 L (16.0-40.0) % [place] % (Auto) 4.6 (0.0-15.0) % Eos % (Auto) 1.3 (0.0-7.0) % Baso % (Auto) 0.2 (0.0-1.5) % Neut # (Auto) 8.3 H (1.4-5.7) K/uL Lymph # (Auto) 1.7 (0.6-2.4) K/uL [place] # (Auto) 0.5 (0.0-0.8) K/uL Eos # (Auto) 0.1 (0.0-0.7) K/uL Baso # (Auto) 0.0 (0.0-0.1) K/uL Nucleated RBC % 0.6 /100WBC Nucleated RBCs # 0 K/uL Sodium 141 (136-145) mmol/L Potassium 3.4 L (3.5-5.1) mmol/L Chloride 106 (98-107) mmol/L Carbon Dioxide 24.0 (21.0-32.0) mmol/L BUN 14 (7.0-18.0) mg/dL Creatinine 0.8 (0.6-1.0) mg/dL Est Cr Clr Drug Dosing 101.18 mL/min Estimated GFR (MDRD) > 60.0 ml/min Glucose 96 (74-106) mg/dL Calcium 7.8 L (8.5-10.1) mg/dL Phosphorus 3.7 (2.6-4.7) mg/dL Magnesium 1.9 (1.8-2.4) mg/dL Med Orders - Current: Current Medications Acetaminophen (Acetaminophen 325 Mg Tab) 650 mg PO Q6H PRN PRN Reason: Pain (Mild 1-3)/fever Last Admin: 09/04/21 12:33 Dose: 650 mg Documented by: Albuterol/Ipratropium (Albuterol/Ipratropium 3.0-0.5 Mg/3 Ml Neb Soln) 3 ml NEB Q4HRRT PRN PRN Reason: Shortness Of Breath/wheezing Albuterol/Ipratropium (Albuterol/Ipratropium 4 Gm Inhalation [place]) 0 gm INH Q4H [facility] Last Admin: 09/09/21 05:51 Dose: 1 puff Documented by: Dexamethasone (Dexamethasone 4 Mg Tab) 6 mg PO DAILY [facility] Last Admin: 09/08/21 09:00 Dose: 6 mg Documented by: Enoxaparin Sodium (Enoxaparin 40 Mg/0.4 Ml Syringe) 40 mg SUBCUT Q24H [facility] Last Admin: 09/08/21 21:38 Dose: 40 mg Documented by: Guaifenesin/Dextromethorphan (Guaifenesin/Dextromethorphan 100-10 Mg/5 Ml Soln 10 Ml Cup) 10 ml PO Q6H PRN PRN Reason: Cough Last Admin: 09/09/21 06:30 Dose: 10 ml Documented by: Melatonin (Melatonin 3 Mg Tab) 6 mg PO BEDTIME PRN PRN Reason: Insomnia Last Admin: 09/08/21 21:38 Dose: 6 mg Documented by: Ondansetron HCl (Ondansetron 4 Mg/2 Ml Sdv) 4 mg IVPUSH Q4H PRN PRN Reason: Nausea/Vomiting Pantoprazole Sodium (Pantoprazole 40 Mg Tab.Cr) 40 mg PO DAILY [facility] Last Admin: 09/08/21 09:00 Dose: 40 mg Documented by: Sodium Chloride (Sodium Chloride 0.9% 10 Ml Syringe) 10 ml FLUSH ASDIRECTED PRN PRN Reason: Keep Vein Open Last Admin: 09/03/21 18:01 Dose: 10 ml Documented by: Sodium Chloride (Sodium Chloride 0.9% 2.5 Ml Syringe) 2.5 ml FLUSH ASDIRECTED PRN PRN Reason: Keep Vein Open Last Admin: 09/03/21 18:00 Dose: 2.5 ml Documented by: Discontinued Medications Dexamethasone (Dexamethasone 10 Mg/Ml Sdv) 6 mg IVPUSH ONETIME ONE Stop: 09/03/21 17:43 Last Admin: 09/03/21 18:01 Dose: 6 mg Documented by: Lactated Ringer's (Ringers, Lactated) 1,000 mls @ 999 mls/hr IV ASDIRECTED [facility] Last Admin: 09/03/21 18:00 Dose: 999 mls/hr Documented by: Remdesivir 200 mg/ Sodium (Chloride) 250 mls @ 250 mls/hr IV ONETIME ONE Stop: 09/03/21 20:44 Last Admin: 09/03/21 21:34 Dose: 250 mls/hr Documented by: Remdesivir 100 mg/ Sodium (Chloride) 100 mls @ 100 mls/hr IV Q24H [place] Stop: 09/07/21 22:44 Last Admin: 09/07/21 21:10 Dose: 100 mls/hr Documented by: Pantoprazole Sodium 40 mg/ (Sodium Chloride) 10 mls @ 300 mls/hr IV Q24H [place] Last Admin: 09/06/21 08:06 Dose: 300 mls/hr Documented by: Tocilizumab 750 mg/ Sodium (Chloride) 137.5 mls @ 137.5 mls/hr IV ONETIME ONE Stop: 09/04/21 13:31 Last Admin: 09/04/21 14:14 Dose: 137.5 mls/hr Documented by: Iopamidol (Iopamidol 755 Mg/Ml 500 Ml Multipack Bottle) 100 ml IVPUSH ONETIME STA Stop: 09/03/21 18:53 Last Admin: 09/03/21 18:52 Dose: 100 ml Documented by: Potassium Chloride (Potassium Chloride 20 Meq Tab.Er) 40 meq PO ONETIME ONE Stop: 09/09/21 10:16 - Exam Quality Assessment: Supplemental Oxygen General: Alert, Oriented, Cooperative, No Acute Distress Neck: Supple Lungs: Normal Respiratory Effort, Decreased Breath Sounds, Crackles GI/Abdominal Exam: Normal Bowel Sounds, Soft, Non-Tender Extremities: Normal Inspection, Normal Range of Motion, Non-Tender, No Pedal Edema - Patient Data Lab Results Last 24 hrs: Laboratory Results - last 24 hr 09/09/21 09/09/21 Range/Units 06:15 06:15 WBC 10.68 (4.0-11.0) K/uL RBC 4.07 L (4.30-5.90) M/uL Hgb 11.2 L (12.0-16.0) g/dL Hct 34.6 L (36.0-46.0) % MCV 85.0 (80.0-98.0) fL MCH 27.5 (27.0-32.0) pg MCHC 32.4 (31.0-37.0) g/dL RDW Std Deviation 39.7 (28.0-62.0) fl RDW Coeff of Kwasi 13 (11.0-15.0) % Plt Count 472 H (150-400) K/uL MPV 9.60 (7.40-12.00) fL Neut % (Auto) 78.1 (48.0-80.0) % Lymph % (Auto) 15.8 L (16.0-40.0) % [place] % (Auto) 4.6 (0.0-15.0) % Eos % (Auto) 1.3 (0.0-7.0) % Baso % (Auto) 0.2 (0.0-1.5) % Neut # (Auto) 8.3 H (1.4-5.7) K/uL Lymph # (Auto) 1.7 (0.6-2.4) K/uL [place] # (Auto) 0.5 (0.0-0.8) K/uL Eos # (Auto) 0.1 (0.0-0.7) K/uL Baso # (Auto) 0.0 (0.0-0.1) K/uL Nucleated RBC % 0.6 /100WBC Nucleated RBCs # 0 K/uL Sodium 141 (136-145) mmol/L Potassium 3.4 L (3.5-5.1) mmol/L Chloride 106 (98-107) mmol/L Carbon Dioxide 24.0 (21.0-32.0) mmol/L BUN 14 (7.0-18.0) mg/dL Creatinine 0.8 (0.6-1.0) mg/dL Est Cr Clr Drug Dosing 101.18 mL/min Estimated GFR (MDRD) > 60.0 ml/min Glucose 96 (74-106) mg/dL Calcium 7.8 L (8.5-10.1) mg/dL Phosphorus 3.7 (2.6-4.7) mg/dL Magnesium 1.9 (1.8-2.4) mg/dL Result Diagrams: 09/09/21 06:15 09/09/21 06:15 Sepsis Event Note - Evaluation Sepsis Screening Result: No Definite Risk - Focused Exam Vital Signs: Vital Signs Temp Resp BP Pulse Ox 09/09/21 12:00 27 H 90 L 09/09/21 11:00 25 H 90 L 09/09/21 10:00 23 H 113/76 89 L 09/09/21 09:00 20 114/68 91 L 09/09/21 08:00 36.7 C 13 101/70 95 09/09/21 07:00 25 H 106/47 L 93 L 09/09/21 06:00 28 H 117/69 88 L 09/09/21 05:00 36.3 C 28 H 116/69 92 L 09/09/21 04:00 18 118/57 L 92 L 09/09/21 03:00 24 H 101/58 L 90 L 09/09/21 02:00 27 H 108/67 88 L 09/09/21 01:15 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 21 H 93 L 09/09/21 01:00 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 29 H 95/60 83 L - Problem List & Annotations (1) COVID-19 SNOMED Code(s): 502922509 Code(s): U07.1 - COVID-19 Status: Acute Current Visit: Yes (2) Hypoxia SNOMED Code(s): 163835245 Code(s): R09.02 - HYPOXEMIA Status: Acute Current Visit: Yes (3) delivery due to maternal disorder, delivered, curr hospitaliz SNOMED Code(s): 550984868 Code(s): O99.892 - OTH DISEASES AND CONDITIONS COMPLICATING CHILDBIRTH Status: Acute Current Visit: No - Problem List Review Problem List Initiated/Reviewed/Updated: Yes - My Orders Last 24 Hours: My Active Orders 09/08/21 21:14 Melatonin 6 mg PO BEDTIME PRN 09/09/21 20:00 CPAP Adult [RT BiPAP/CPAP] [RC] BEDTIME - Plan Plan:: 25-year-old female admitted for acute hypoxic respiratory failure secondary to Covid pneumonia COVID pneumonia: oral Decadron, s/p tocilizumab, remdesivir Continue Lovenox for DVT prophylaxis Continue to wean off the oxygen currently needing 12 to 15 L of regular high flow There is a concern of sleep apnea as patient has drops in her oxygen levels during her deep sleep phase, will give a trial of CPAP overnight and see if that helps her wean off the oxygen quicker
[2021-09-09] MEDS: Enoxaparin 40 MG/0.4 ML Syringe SUBCUT SCH (21:22)
[2021-09-09] MEDS ORDERED: LORazepam 2 MG/ML SDV IVPUSH PRN (21:23)
[2021-09-10] MEDS: Albuterol/Ipratropium 4 GM Inhalation Spray INH SCH ×6 (02:06→21:41)
[2021-09-10] MEDS: Albuterol/Ipratropium 3.0-0.5 MG/3 ML Neb Soln NEB PRN (02:55)
[2021-09-10] MEDS: guaiFENesin/Dextromethorphan 100-10 MG/5 ML Soln 10 ML Cup PO PRN (03:33)
[2021-09-10 06:59] LABS: BLOOD UREA NITROGEN,BUN 10 mg/dL (7.0-18.0); CARBON DIOXIDE,CO2 24.3 mmol/L (21.0-32.0); CHLORIDE,CL 105 mmol/L (98-107); GLUCOSE RANDOM 93 mg/dL (74-106); POTASSIUM,K 3.6 mmol/L (3.5-5.1); SODIUM,NA 140 mmol/L (136-145)
[2021-09-10] MEDS: Dexamethasone 4 MG Tab PO SCH (09:15)
[2021-09-10] MEDS: Pantoprazole 40 MG Tab.CR PO SCH (09:16)
--- NOTE | 2021-09-10 11:34 | PCM.PN ---
- General Info Date of Service: 09/10/21 Admission Dx/Problem (Free Text): Admission Diagnosis/Problem Admission Diagnosis/Problem Hypoxia Subjective Update: Patient seen at bedside, has been switched back to heated high flow overnight as patient was unable to tolerate CPAP overnight. Patient appears to be a little anxious and is keen to know when she can go home. Patient was appropriately counseled and explained that the timeline is unpredictable but based on her current oxygen requirement it might be another 5 to 6 days before we can anticipate any kind of discharge from the hospital Functional Status: Reports: Tolerating Diet, Ambulating, Urinating - Review of Systems General: Reports: Fatigue, Malaise. Denies: Fever, Weakness, Chills Pulmonary: Reports: Shortness of Breath, Cough, Sputum. Denies: Pleuritic Chest Pain Cardiovascular: Reports: Dyspnea on Exertion. Denies: Chest Pain, Palpitations, Orthopnea Gastrointestinal: Denies: Abdominal Pain, Constipation, Decreased Appetite Genitourinary: Denies: Dysuria, Frequency, Burning Musculoskeletal: Denies: Neck Pain, Shoulder Pain, Arm Pain Skin: Denies: Cyanosis, Jaundice, Mottled - Patient Data Vitals - Most Recent: Last Vital Signs Temp 36.3 C 09/10/21 09:00 Pulse 105 H 09/04/21 07:00 Resp 23 H 09/10/21 10:00 BP 131/70 09/10/21 10:00 Pulse Ox 93 L 09/10/21 10:00 Weight - Most Recent: 87.543 kg I&O - Last 24 Hours: Intake & Output 09/09/21 09/10/21 09/10/21 22:59 06:59 14:59 Intake Total 1500 700 Output Total 1100 600 Balance 400 100 Lab Results Last 24 Hours: Laboratory Results - last 24 hr 09/10/21 09/10/21 Range/Units 04:51 04:51 WBC 13.35 H (4.0-11.0) K/uL RBC 4.20 L (4.30-5.90) M/uL Hgb 11.7 L (12.0-16.0) g/dL Hct 35.8 L (36.0-46.0) % MCV 85.2 (80.0-98.0) fL MCH 27.9 (27.0-32.0) pg MCHC 32.7 (31.0-37.0) g/dL RDW Std Deviation 40.1 (28.0-62.0) fl RDW Coeff of Kwasi 13 (11.0-15.0) % Plt Count 457 H (150-400) K/uL MPV 9.90 (7.40-12.00) fL Neut % (Auto) 84.6 H (48.0-80.0) % Lymph % (Auto) 9.5 L (16.0-40.0) % [place] % (Auto) 4.1 (0.0-15.0) % Eos % (Auto) 1.7 (0.0-7.0) % Baso % (Auto) 0.1 (0.0-1.5) % Neut # (Auto) 11.3 H (1.4-5.7) K/uL Lymph # (Auto) 1.3 (0.6-2.4) K/uL [place] # (Auto) 0.6 (0.0-0.8) K/uL Eos # (Auto) 0.2 (0.0-0.7) K/uL Baso # (Auto) 0.0 (0.0-0.1) K/uL Nucleated RBC % 0.1 /100WBC Nucleated RBCs # 0 K/uL Sodium 140 (136-145) mmol/L Potassium 3.6 (3.5-5.1) mmol/L Chloride 105 (98-107) mmol/L Carbon Dioxide 24.3 (21.0-32.0) mmol/L BUN 10 (7.0-18.0) mg/dL Creatinine 0.7 (0.6-1.0) mg/dL Est Cr Clr Drug Dosing 115.64 mL/min Estimated GFR (MDRD) > 60.0 ml/min Glucose 93 (74-106) mg/dL Calcium 7.5 L (8.5-10.1) mg/dL Med Orders - Current: Current Medications Acetaminophen (Acetaminophen 325 Mg Tab) 650 mg PO Q6H PRN PRN Reason: Pain (Mild 1-3)/fever Last Admin: 09/04/21 12:33 Dose: 650 mg Documented by: Albuterol/Ipratropium (Albuterol/Ipratropium 3.0-0.5 Mg/3 Ml Neb Soln) 3 ml NEB Q4HRRT PRN PRN Reason: Shortness Of Breath/wheezing Last Admin: 09/10/21 02:55 Dose: 3 ml Documented by: Albuterol/Ipratropium (Albuterol/Ipratropium 4 Gm Inhalation [place]) 0 gm INH Q4H [facility] Last Admin: 09/10/21 09:16 Dose: 1 puff Documented by: Dexamethasone (Dexamethasone 4 Mg Tab) 6 mg PO DAILY [facility] Last Admin: 09/10/21 09:15 Dose: 6 mg Documented by: Enoxaparin Sodium (Enoxaparin 40 Mg/0.4 Ml Syringe) 40 mg SUBCUT Q24H [facility] Last Admin: 09/09/21 21:22 Dose: 40 mg Documented by: Guaifenesin/Dextromethorphan (Guaifenesin/Dextromethorphan 100-10 Mg/5 Ml Soln 10 Ml Cup) 10 ml PO Q6H PRN PRN Reason: Cough Last Admin: 09/10/21 03:33 Dose: 10 ml Documented by: Melatonin (Melatonin 3 Mg Tab) 6 mg PO BEDTIME PRN PRN Reason: Insomnia Last Admin: 09/08/21 21:38 Dose: 6 mg Documented by: Ondansetron HCl (Ondansetron 4 Mg/2 Ml Sdv) 4 mg IVPUSH Q4H PRN PRN Reason: Nausea/Vomiting Pantoprazole Sodium (Pantoprazole 40 Mg Tab.Cr) 40 mg PO DAILY [facility] Last Admin: 09/10/21 09:16 Dose: 40 mg Documented by: Sodium Chloride (Sodium Chloride 0.9% 10 Ml Syringe) 10 ml FLUSH ASDIRECTED PRN PRN Reason: Keep Vein Open Last Admin: 09/03/21 18:01 Dose: 10 ml Documented by: Sodium Chloride (Sodium Chloride 0.9% 2.5 Ml Syringe) 2.5 ml FLUSH ASDIRECTED PRN PRN Reason: Keep Vein Open Last Admin: 09/03/21 18:00 Dose: 2.5 ml Documented by: Natasha Epstein (Natasha Epstein Medicated Pads 40/Jar) 1 pad TOP ASDIRECTED PRN PRN Reason: Hemorrhoids Discontinued Medications Dexamethasone (Dexamethasone 10 Mg/Ml Sdv) 6 mg IVPUSH ONETIME ONE Stop: 09/03/21 17:43 Last Admin: 09/03/21 18:01 Dose: 6 mg Documented by: Lactated Ringer's (Ringers, Lactated) 1,000 mls @ 999 mls/hr IV ASDIRECTED [facility] Last Admin: 09/03/21 18:00 Dose: 999 mls/hr Documented by: Remdesivir 200 mg/ Sodium (Chloride) 250 mls @ 250 mls/hr IV ONETIME ONE Stop: 09/03/21 20:44 Last Admin: 09/03/21 21:34 Dose: 250 mls/hr Documented by: Remdesivir 100 mg/ Sodium (Chloride) 100 mls @ 100 mls/hr IV Q24H [facility] Stop: 09/07/21 22:44 Last Admin: 09/07/21 21:10 Dose: 100 mls/hr Documented by: Pantoprazole Sodium 40 mg/ (Sodium Chloride) 10 mls @ 300 mls/hr IV Q24H [facility] Last Admin: 09/06/21 08:06 Dose: 300 mls/hr Documented by: Tocilizumab 750 mg/ Sodium (Chloride) 137.5 mls @ 137.5 mls/hr IV ONETIME ONE Stop: 09/04/21 13:31 Last Admin: 09/04/21 14:14 Dose: 137.5 mls/hr Documented by: Iopamidol (Iopamidol 755 Mg/Ml 500 Ml Multipack Bottle) 100 ml IVPUSH ONETIME STA Stop: 09/03/21 18:53 Last Admin: 09/03/21 18:52 Dose: 100 ml Documented by: Lorazepam (Lorazepam 2 Mg/Ml Sdv) 1 mg IVPUSH ONETIME PRN PRN Reason: Anxiety Last Admin: 09/09/21 22:29 Dose: 1 mg Documented by: Potassium Chloride (Potassium Chloride 20 Meq Tab.Er) 40 meq PO ONETIME ONE Stop: 09/09/21 10:16 Last Admin: 09/09/21 10:40 Dose: 40 meq Documented by: - Exam Quality Assessment: Supplemental Oxygen General: Alert, Oriented, Cooperative, Mild Distress Lungs: Normal Respiratory Effort, Decreased Breath Sounds, Crackles Cardiovascular: Regular Rhythm, Tachycardia GI/Abdominal Exam: Normal Bowel Sounds, Soft Back Exam: Normal Inspection, Full Range of Motion - Patient Data Lab Results Last 24 hrs: Laboratory Results - last 24 hr 09/10/21 09/10/21 Range/Units 04:51 04:51 WBC 13.35 H (4.0-11.0) K/uL RBC 4.20 L (4.30-5.90) M/uL Hgb 11.7 L (12.0-16.0) g/dL Hct 35.8 L (36.0-46.0) % MCV 85.2 (80.0-98.0) fL MCH 27.9 (27.0-32.0) pg MCHC 32.7 (31.0-37.0) g/dL RDW Std Deviation 40.1 (28.0-62.0) fl RDW Coeff of Kwasi 13 (11.0-15.0) % Plt Count 457 H (150-400) K/uL MPV 9.90 (7.40-12.00) fL Neut % (Auto) 84.6 H (48.0-80.0) % Lymph % (Auto) 9.5 L (16.0-40.0) % [place] % (Auto) 4.1 (0.0-15.0) % Eos % (Auto) 1.7 (0.0-7.0) % Baso % (Auto) 0.1 (0.0-1.5) % Neut # (Auto) 11.3 H (1.4-5.7) K/uL Lymph # (Auto) 1.3 (0.6-2.4) K/uL [place] # (Auto) 0.6 (0.0-0.8) K/uL Eos # (Auto) 0.2 (0.0-0.7) K/uL Baso # (Auto) 0.0 (0.0-0.1) K/uL Nucleated RBC % 0.1 /100WBC Nucleated RBCs # 0 K/uL Sodium 140 (136-145) mmol/L Potassium 3.6 (3.5-5.1) mmol/L Chloride 105 (98-107) mmol/L Carbon Dioxide 24.3 (21.0-32.0) mmol/L BUN 10 (7.0-18.0) mg/dL Creatinine 0.7 (0.6-1.0) mg/dL Est Cr Clr Drug Dosing 115.64 mL/min Estimated GFR (MDRD) > 60.0 ml/min Glucose 93 (74-106) mg/dL Calcium 7.5 L (8.5-10.1) mg/dL Result Diagrams: 09/10/21 04:51 09/10/21 04:51 Sepsis Event Note - Evaluation Sepsis Screening Result: Sepsis Risk - Focused Exam Vital Signs: Vital Signs Temp Resp BP Pulse Ox 09/10/21 10:00 23 H 131/70 93 L 09/10/21 09:00 36.3 C 27 H 121/75 90 L 09/10/21 08:00 33 H 110/55 L 93 L 09/10/21 07:00 25 H 120/61 88 L 09/10/21 06:00 23 H 110/74 88 L 09/10/21 05:50 82 L 09/10/21 05:00 36.4 C 22 H 113/74 89 L 09/10/21 04:00 26 H 114/74 95 09/10/21 03:00 24 H 123/76 89 L 09/10/21 02:00 33 H 103/63 89 L 09/10/21 01:00 27 H 115/65 87 L 09/10/21 00:00 35 H 110/71 88 L - Problem List & Annotations (1) COVID-19 SNOMED Code(s): 342994405 Code(s): U07.1 - COVID-19 Status: Acute Current Visit: Yes (2) Hypoxia SNOMED Code(s): 323674487 Code(s): R09.02 - HYPOXEMIA Status: Acute Current Visit: Yes (3) delivery due to maternal disorder, delivered, curr hospitaliz SNOMED Code(s): 826800353 Code(s): O99.892 - OTH DISEASES AND CONDITIONS COMPLICATING CHILDBIRTH S tatus: Acute Current Visit: No - Problem List Review Problem List Initiated/Reviewed/Updated: Yes - My Orders Last 24 Hours: My Active Orders 09/09/21 18:35 witch Robert [Tucks] 1 pad TOP ASDIRECTED PRN 09/09/21 20:00 CPAP Adult [RT BiPAP/CPAP] [RC] BEDTIME 09/10/21 06:48 CTA Chest W WO Contrast [Ang Chest] [CT] Stat 09/11/21 05:11 BMP [BASIC METABOLIC PANEL,BMP] [CHEM] AM CBC WITH AUTO DIFF [HEME] AM - Plan Plan:: 25-year-old female admitted for acute hypoxic respiratory failure secondary to Covid pneumonia Continue oxygen support via Finished remdesivir Continue oral Decadron Continue subcut Lovenox for DVT prophylaxis Continue scheduled Combivent Continue as needed duo nebs Continue incentive spirometry Encourage proning IV Zofran for nausea and vomiting IV pantoprazole daily for GI prophylaxis Guafenesin for cough OOB to chair Patient has been tachycardic and has increased oxygen requirement so we will be obtaining a CTA of the chest to rule out PE although patient is on appropriate DVT prophylaxis
--- NOTE | 2021-09-10 13:44 | CT ---
HISTORY: Shortness breath. TECHNIQUE: Intravenous contrast enhanced CT of the chest. 75 mL of Isovue-370 intravenous contrast administered. COMPARISON: 09/03/2021. FINDINGS: Progressive extensive bilateral lung infiltrates. Resolution of right-sided pleural effusion. Decreased small left-sided pleural effusion. No pneumothorax. - Assessment for pulmonary embolism is mildly limited by the extensive lung infiltrates. There is subtle decreased attenuation within the right lower lobe lateral basal subsegmental pulmonary artery on image #138 of series 41. The similarly sized right lower lobe posterior basal subsegmental pulmonary arteries are patent. On the left, there is decreased attenuation involving a posterior basal subsegmental pulmonary artery on image #125 series 41. Both findings compatible with subtle small pulmonary emboli. There is no large/central pulmonary embolism. Mediastinal and hilar adenopathy may be reactive. - No acute fractures. No acute bony abnormality. IMPRESSION: 1. Progression in extensive bilateral lung infiltrates related this patient`s COVID-19 pneumonia. 2. Small filling defects within lower lobe pulmonary arterial subsegmental pulmonary arterial branches compatible with small pulmonary emboli. 3. Mediastinal and hilar adenopathy may be reactive. 4. Findings discussed with Dr. Foy on 09/10/2021 at 13:43 hours. Please note that all CT scans at this facility use dose modulation, iterative reconstruction, and/or weight-based dosing when appropriate to reduce radiation dose to as low as reasonably achievable. Dictated by Keith lCarke MD @ 09/10/2021 1:35:02 PM (Electronically Signed)
[2021-09-10] MEDS ORDERED: Heparin Sodium 5,000 Units/ML Vial IVPUSH ONE ×2 (14:30→15:00)
[2021-09-10] MEDS: Heparin Sodium/0.45% NaCl 500 ML IV SCH (15:12)
--- NOTE | 2021-09-10 16:08 | PCM.SN.2 ---
- Free Text/Narrative Note: CTA findings noted patient has small filling defects within lower lobe pulmonary arterial subsegmental pulmonary arterial branches compatible with small pulmonary emboli. There is also progression extensive bilateral lung infiltrates related to COVID-19 pneumonia. Patient has been started on heparin drip. There was a concern about patient being depressed and possible depression. I went and assessed the patient she denies any suicidal ideation or any psychosis or hallucination but does state that she feels very sad and isolated being away from her child and her . She is requesting for her family to come in the able to see her in person as the isolation is causing her a lot of mental distress. I did speak with Dr. Turpin to assess the patient who would be seeing the patient either today evening or driver examiner tomorrow to give his recommendations. Patient was thoroughly counseled as well as was given reassurance. I did spoke with administration as well and informed them about patient's request about being able to see her family. Looks like based on patient's history patient has another 4 to 5 days of isolation necessary per guidelines after that she should be able to come off the isolation precautions. Patient was reassured and she expressed understanding.
[2021-09-10] MEDS ORDERED: Iopamidol 755 MG/ML 500 ML Multipack Bottle IVPUSH STA (16:18)
[2021-09-10] MEDS: Enoxaparin 40 MG/0.4 ML Syringe SUBCUT SCH (21:41)
[2021-09-11] MEDS: Albuterol/Ipratropium 4 GM Inhalation Spray INH SCH ×6 (01:37→20:45)
[2021-09-11 02:47] LABS: BLOOD UREA NITROGEN,BUN 9 mg/dL (7.0-18.0); CARBON DIOXIDE,CO2 24.5 mmol/L (21.0-32.0); CHLORIDE,CL 104 mmol/L (98-107); GLUCOSE RANDOM 113 mg/dL (74-106); POTASSIUM,K 3.3 mmol/L (3.5-5.1); SODIUM,NA 139 mmol/L (136-145)
[2021-09-11] MEDS ORDERED: Heparin Sodium 5,000 Units/ML Vial IVPUSH ONE ×2 (02:51→10:00)
--- NOTE | 2021-09-11 05:47 | PN ---
[facility] Physician - Brief Progress [id number]/09/2021 05:43[facility] Nair Martín singh, SH[place]QU[place] - [place] [facility] - [place] COVID+Date of Service 09/11/2021 05:43HP I/Events of Note Discussed with RN: Continues on heparin drip for PE. Currently on CPAP for improved resp support, but pt feeling clausterphobic.124/74 120sPlan: add precedex for pt comfort, replace w ith 40 of K.Interventions Minor-Communication with other healthcare providers and/or familyElectronic ally Signed by: DAPHNE LEON () on 09/11/2021 05:47
[2021-09-11] MEDS ORDERED: Potassium Chloride 10% 20 MEQ/15 ML Soln 30 ML UD Cup PO ONE (06:11)
[2021-09-11] MEDS ORDERED: Potassium Chloride 20 MEQ Tab.ER PO ONE (06:25)
[2021-09-11] MEDS: Dexamethasone 4 MG Tab PO SCH (08:25)
[2021-09-11] MEDS: Pantoprazole 40 MG Tab.CR PO SCH (08:25)
[2021-09-11] MEDS: Heparin Sodium/0.45% NaCl 500 ML IV SCH (10:50)
--- NOTE | 2021-09-11 13:41 | PCM.PN ---
- General Info Date of Service: 09/11/21 - Review of Systems Systems Review Comment:: reports shortness of breath at rest, did not sleep well last night - Patient Data Vitals - Most Recent: Last Vital Signs Temp 97.5 C H 09/11/21 08:00 Pulse 105 H 09/04/21 07:00 Resp 16 09/11/21 09:00 BP 95/62 09/11/21 08:00 Pulse Ox 88 L 09/11/21 09:00 Weight - Most Recent: 87.861 kg I&O - Last 24 Hours: Intake & Output 09/10/21 09/11/21 09/11/21 22:59 06:59 14:59 Intake Total 900 500 Output Total 1200 700 Balance -300 -200 Lab Results Last 24 Hours: Laboratory Results - last 24 hr 09/10/21 09/10/21 09/11/21 Range/Units 14:21 20:36 02:15 WBC 9.82 (4.0-11.0) K/uL RBC 4.13 L (4.30-5.90) M/uL Hgb 11.7 L (12.0-16.0) g/dL Hct 34.6 L (36.0-46.0) % MCV 83.8 (80.0-98.0) fL MCH 28.3 (27.0-32.0) pg MCHC 33.8 (31.0-37.0) g/dL RDW Std Deviation 40.2 (28.0-62.0) fl RDW Coeff of Kwasi 13 (11.0-15.0) % Plt Count 357 (150-400) K/uL MPV 9.10 (7.40-12.00) fL Neut % (Auto) 81.0 H (48.0-80.0) % Lymph % (Auto) 12.4 L (16.0-40.0) % [place] % (Auto) 4.6 (0.0-15.0) % Eos % (Auto) 1.9 (0.0-7.0) % Baso % (Auto) 0.1 (0.0-1.5) % Neut # (Auto) 8.0 H (1.4-5.7) K/uL Lymph # (Auto) 1.2 (0.6-2.4) K/uL [place] # (Auto) 0.5 (0.0-0.8) K/uL Eos # (Auto) 0.2 (0.0-0.7) K/uL Baso # (Auto) 0.0 (0.0-0.1) K/uL Nucleated RBC % 0.0 /100WBC Nucleated RBCs # 0 K/uL APTT 21.9 70.5 H (18.6-31.3) SEC Sodium (136-145) mmol/L Potassium (3.5-5.1) mmol/L Chloride (98-107) mmol/L Carbon Dioxide (21.0-32.0) mmol/L BUN (7.0-18.0) mg/dL Creatinine (0.6-1.0) mg/dL Est Cr Clr Drug Dosing mL/min Estimated GFR (MDRD) ml/min Glucose (74-106) mg/dL Calcium (8.5-10.1) mg/dL 09/11/21 09/11/21 09/11/21 Range/Units 02:15 02:15 08:49 WBC (4.0-11.0) K/uL RBC (4.30-5.90) M/uL Hgb (12.0-16.0) g/dL Hct (36.0-46.0) % MCV (80.0-98.0) fL MCH (27.0-32.0) pg MCHC (31.0-37.0) g/dL RDW Std Deviation (28.0-62.0) fl RDW Coeff of Kwasi (11.0-15.0) % Plt Count (150-400) K/uL MPV (7.40-12.00) fL Neut % (Auto) (48.0-80.0) % Lymph % (Auto) (16.0-40.0) % [place] % (Auto) (0.0-15.0) % Eos % (Auto) (0.0-7.0) % Baso % (Auto) (0.0-1.5) % Neut # (Auto) (1.4-5.7) K/uL Lymph # (Auto) (0.6-2.4) K/uL [place] # (Auto) (0.0-0.8) K/uL Eos # (Auto) (0.0-0.7) K/uL Baso # (Auto) (0.0-0.1) K/uL Nucleated RBC % /100WBC Nucleated RBCs # K/uL APTT 45.0 H 49.6 H (18.6-31.3) SEC Sodium 139 (136-145) mmol/L Potassium 3.3 L (3.5-5.1) mmol/L Chloride 104 (98-107) mmol/L Carbon Dioxide 24.5 (21.0-32.0) mmol/L BUN 9 (7.0-18.0) mg/dL Creatinine 0.6 (0.6-1.0) mg/dL Est Cr Clr Drug Dosing 134.91 mL/min Estimated GFR (MDRD) > 60.0 ml/min Glucose 113 H (74-106) mg/dL Calcium 7.8 L (8.5-10.1) mg/dL Med Orders - Current: Current Medications Acetaminophen (Acetaminophen 325 Mg Tab) 650 mg PO Q6H PRN PRN Reason: Pain (Mild 1-3)/fever Last Admin: 09/04/21 12:33 Dose: 650 mg Documented by: Albuterol/Ipratropium (Albuterol/Ipratropium 3.0-0.5 Mg/3 Ml Neb Soln) 3 ml NEB Q4HRRT PRN PRN Reason: Shortness Of Breath/wheezing Last Admin: 09/10/21 02:55 Dose: 3 ml Documented by: Albuterol/Ipratropium (Albuterol/Ipratropium 4 Gm Inhalation Bernie) 0 gm INH Q4H [place] Last Admin: 09/11/21 13:13 Dose: Not Given Documented by: Dexamethasone (Dexamethasone 4 Mg Tab) 6 mg PO DAILY [facility] Last Admin: 09/11/21 08:25 Dose: 6 mg Documented by: Guaifenesin/Dextromethorphan (Guaifenesin/Dextromethorphan 100-10 Mg/5 Ml Soln 10 Ml Cup) 10 ml PO Q6H PRN PRN Reason: Cough Last Admin: 09/10/21 03:33 Dose: 10 ml Documented by: Heparin Sodium/Sodium Chloride (Heparin 25,000 Units In 1/2 Ns 500 Ml) 500 mls @ 26.263 mls/hr IV TITRATE [place]; Protocol Last Admin: 09/11/21 10:50 Dose: 17 units/kg/hr, 29.765 mls/hr Documented by: Dexmedetomidine/Sodium (Chloride 400 mcg/ Premix) 100 mls @ 4.393 mls/hr IV TITRATE [place]; Protocol Last Admin: 09/11/21 11:57 Dose: 0.2 mcg/kg/hr, 4.393 mls/hr Documented by: Melatonin (Melatonin 3 Mg Tab) 6 mg PO BEDTIME PRN PRN Reason: Insomnia Last Admin: 09/08/21 21:38 Dose: 6 mg Documented by: Ondansetron HCl (Ondansetron 4 Mg/2 Ml Sdv) 4 mg IVPUSH Q4H PRN PRN Reason: Nausea/Vomiting Pantoprazole Sodium (Pantoprazole 40 Mg Tab.Cr) 40 mg PO DAILY [place] Last Admin: 09/11/21 08:25 Dose: 40 mg Documented by: Sodium Chloride (Sodium Chloride 0.9% 10 Ml Syringe) 10 ml FLUSH ASDIRECTED PRN PRN Reason: Keep Vein Open Last Admin: 09/03/21 18:01 Dose: 10 ml Documented by: Sodium Chloride (Sodium Chloride 0.9% 2.5 Ml Syringe) 2.5 ml FLUSH ASDIRECTED PRN PRN Reason: Keep Vein Open Last Admin: 09/03/21 18:00 Dose: 2.5 ml Documented by: Natasha Epstein (Natasha Epstein Medicated Pads 40/Jar) 1 pad TOP ASDIRECTED PRN PRN Reason: Hemorrhoids Discontinued Medications Dexamethasone (Dexamethasone 10 Mg/Ml Sdv) 6 mg IVPUSH ONETIME ONE Stop: 09/03/21 17:43 Last Admin: 09/03/21 18:01 Dose: 6 mg Documented by: Enoxaparin Sodium (Enoxaparin 40 Mg/0.4 Ml Syringe) 40 mg SUBCUT Q24H [place] Last Admin: 09/10/21 21:41 Dose: Not Given Documented by: Heparin Sodium (Porcine) (Heparin Sodium 5,000 Units/Ml Vial) 7,000 units IVPUSH ONETIME ONE Stop: 09/10/21 15:01 Last Admin: 09/10/21 15:12 Dose: 7,000 units Documented by: Heparin Sodium (Porcine) (Heparin Sodium 5,000 Units/Ml Vial) 1,500 units IVPUSH ONETIME ONE Stop: 09/11/21 02:52 Last Admin: 09/11/21 03:00 Dose: 1,500 units Documented by: Heparin Sodium (Porcine) (Heparin Sodium 5,000 Units/Ml Vial) 0 units IVPUSH .BOLUS ONE Stop: 09/11/21 10:01 Last Admin: 09/11/21 10:36 Dose: 1,500 units Documented by: Lactated Ringer's (Ringers, Lactated) 1,000 mls @ 999 mls/hr IV ASDIRECTED [facility] Last Admin: 09/03/21 18:00 Dose: 999 mls/hr Documented by: Remdesivir 200 mg/ Sodium (Chloride) 250 mls @ 250 mls/hr IV ONETIME ONE Stop: 09/03/21 20:44 Last Admin: 09/03/21 21:34 Dose: 250 mls/hr Documented by: Remdesivir 100 mg/ Sodium (Chloride) 100 mls @ 100 mls/hr IV Q24H [facility] Stop: 09/07/21 22:44 Last Admin: 09/07/21 21:10 Dose: 100 mls/hr Documented by: Pantoprazole Sodium 40 mg/ (Sodium Chloride) 10 mls @ 300 mls/hr IV Q24H [facility] Last Admin: 09/06/21 08:06 Dose: 300 mls/hr Documented by: Tocilizumab 750 mg/ Sodium (Chloride) 137.5 mls @ 137.5 mls/hr IV ONETIME ONE Stop: 09/04/21 13:31 Last Admin: 09/04/21 14:14 Dose: 137.5 mls/hr Documented by: Iopamidol (Iopamidol 755 Mg/Ml 500 Ml Multipack Bottle) 100 ml IVPUSH ONETIME STA Stop: 09/03/21 18:53 Last Admin: 09/03/21 18:52 Dose: 100 ml Documented by: Iopamidol (Iopamidol 755 Mg/Ml 500 Ml Multipack Bottle) 75 ml IVPUSH ONETIME STA Stop: 09/10/21 16:19 Last Admin: 09/10/21 16:19 Dose: 75 ml Documented by: Lorazepam (Lorazepam 2 Mg/Ml Sdv) 1 mg IVPUSH ONETIME PRN PRN Reason: Anxiety Last Admin: 09/09/21 22:29 Dose: 1 mg Documented by: Potassium Chloride (Potassium Chloride 20 Meq Tab.Er) 40 meq PO ONETIME ONE Stop: 09/09/21 10:16 Last Admin: 09/09/21 10:40 Dose: 40 meq Documented by: Potassium Chloride (Potassium Chloride 10% 20 Meq/15 Ml Soln 30 Ml Ud Cup) 40 meq PO ONETIME ONE Stop: 09/11/21 06:12 Last Admin: 09/11/21 06:26 Dose: Not Given Documented by: Potassium Chloride (Potassium Chloride 20 Meq Tab.Er) 40 meq PO ONETIME ONE Stop: 09/11/21 06:26 Last Admin: 09/11/21 06:30 Dose: 40 meq Documented by: - Exam General: Alert, Oriented Neck: +2 Carotid Pulse wo Bruit Lungs: Normal Respiratory Effort, Rhonchi Cardiovascular: Regular Rate, Regular Rhythm GI/Abdominal Exam: Soft, Non-Tender, No Distention Extremities: Non-Tender, No Pedal Edema Skin: Warm, Dry, Intact - Patient Data Lab Results Last 24 hrs: Laboratory Results - last 24 hr 09/10/21 09/10/21 09/11/21 Range/Units 14:21 20:36 02:15 WBC 9.82 (4.0-11.0) K/uL RBC 4.13 L (4.30-5.90) M/uL Hgb 11.7 L (12.0-16.0) g/dL Hct 34.6 L (36.0-46.0) % MCV 83.8 (80.0-98.0) fL MCH 28.3 (27.0-32.0) pg MCHC 33.8 (31.0-37.0) g/dL RDW Std Deviation 40.2 (28.0-62.0) fl RDW Coeff of Kwasi 13 (11.0-15.0) % Plt Count 357 (150-400) K/uL MPV 9.10 (7.40-12.00) fL Neut % (Auto) 81.0 H (48.0-80.0) % Lymph % (Auto) 12.4 L (16.0-40.0) % [place] % (Auto) 4.6 (0.0-15.0) % Eos % (Auto) 1.9 (0.0-7.0) % Baso % (Auto) 0.1 (0.0-1.5) % Neut # (Auto) 8.0 H (1.4-5.7) K/uL Lymph # (Auto) 1.2 (0.6-2.4) K/uL [place] # (Auto) 0.5 (0.0-0.8) K/uL Eos # (Auto) 0.2 (0.0-0.7) K/uL Baso # (Auto) 0.0 (0.0-0.1) K/uL Nucleated RBC % 0.0 /100WBC Nucleated RBCs # 0 K/uL APTT 21.9 70.5 H (18.6-31.3) SEC Sodium (136-145) mmol/L Potassium (3.5-5.1) mmol/L Chloride (98-107) mmol/L Carbon Dioxide (21.0-32.0) mmol/L BUN (7.0-18.0) mg/dL Creatinine (0.6-1.0) mg/dL Est Cr Clr Drug Dosing mL/min Estimated GFR (MDRD) ml/min Glucose (74-106) mg/dL Calcium (8.5-10.1) mg/dL 09/11/21 09/11/21 09/11/21 Range/Units 02:15 02:15 08:49 WBC (4.0-11.0) K/uL RBC (4.30-5.90) M/uL Hgb (12.0-16.0) g/dL Hct (36.0-46.0) % MCV (80.0-98.0) fL MCH (27.0-32.0) pg MCHC (31.0-37.0) g/dL RDW Std Deviation (28.0-62.0) fl RDW Coeff of Kwasi (11.0-15.0) % Plt Count (150-400) K/uL MPV (7.40-12.00) fL Neut % (Auto) (48.0-80.0) % Lymph % (Auto) (16.0-40.0) % [place] % (Auto) (0.0-15.0) % Eos % (Auto) (0.0-7.0) % Baso % (Auto) (0.0-1.5) % Neut # (Auto) (1.4-5.7) K/uL Lymph # (Auto) (0.6-2.4) K/uL [place] # (Auto) (0.0-0.8) K/uL Eos # (Auto) (0.0-0.7) K/uL Baso # (Auto) (0.0-0.1) K/uL Nucleated RBC % /100WBC Nucleated RBCs # K/uL APTT 45.0 H 49.6 H (18.6-31.3) SEC Sodium 139 (136-145) mmol/L Potassium 3.3 L (3.5-5.1) mmol/L Chloride 104 (98-107) mmol/L Carbon Dioxide 24.5 (21.0-32.0) mmol/L BUN 9 (7.0-18.0) mg/dL Creatinine 0.6 (0.6-1.0) mg/dL Est Cr Clr Drug Dosing 134.91 mL/min Estimated GFR (MDRD) > 60.0 ml/min Glucose 113 H (74-106) mg/dL Calcium 7.8 L (8.5-10.1) mg/dL Result Diagrams: 09/11/21 02:15 09/11/21 02:15 Sepsis Event Note - Evaluation Sepsis Screening Result: No Definite Risk - Focused Exam Vital Signs: Vital Signs Temp Resp BP Pulse Ox 09/11/21 09:00 16 88 L 09/11/21 08:00 97.5 C H 29 H 95/62 84 L 09/11/21 07:00 20 104/55 L 87 L 09/11/21 06:00 29 H 125/71 87 L 09/11/21 05:00 32 H 124/71 88 L 09/11/21 04:00 25 H 123/71 84 L 09/11/21 03:00 22 H 138/108 H 87 L 09/11/21 02:00 32 H 113/68 91 L - Problem List & Annotations (1) COVID-19 SNOMED Code(s): 536710653 Code(s): U07.1 - COVID-19 Status: Acute Current Visit: Yes (2) Hypoxia SNOMED Code(s): 699189057 Code(s): R09.02 - HYPOXEMIA Status: Acute Current Visit: Yes - Problem List Review Problem List Initiated/Reviewed/Updated: Yes - My Orders Last 24 Hours: My Active Orders 09/11/21 22:15 PTT,PARTIAL THROMBOPLSTIN TIME [COAG] Q6H 09/12/21 04:15 PTT,PARTIAL THROMBOPLSTIN TIME [COAG] Q6H 09/12/21 05:11 CBC WITH AUTO DIFF [HEME] AM COMPREHENSIVE METABOLIC PN,CMP [CHEM] AM MAGNESIUM [CHEM] AM PHOSPHORUS [CHEM] AM 09/12/21 10:15 PTT,PARTIAL THROMBOPLSTIN TIME [COAG] Q6H 09/12/21 16:15 PTT,PARTIAL THROMBOPLSTIN TIME [COAG] Q6H 09/12/21 22:15 PTT,PARTIAL THROMBOPLSTIN TIME [COAG] Q6H 09/13/21 05:11 CBC WITH AUTO DIFF [HEME] AM COMPREHENSIVE METABOLIC PN,CMP [CHEM] AM 09/14/21 05:11 CBC WITH AUTO DIFF [HEME] AM COMPREHENSIVE METABOLIC PN,CMP [CHEM] AM - Plan Plan:: 25-year-old female admitted for acute hypoxic respiratory failure secondary to Covid pneumonia acute hypoxic respiratory failure: oxygen sats dipping to upper 80s on maximum settings on high flow. Will try BIPAP with precedex so is more easily tolerated COVID: on dexamethasone, finished remdesivir. PE: on heparin drip Possible Post depression: Dr. Turpin has been consulted
[2021-09-11] MEDS: Witch Hazel Medicated Pads 40/Jar TOP PRN ×2 (15:30→21:44)
[2021-09-11] MEDS: FLUoxetine 20 MG Cap PO SCH (20:20)
[2021-09-11] MEDS: Vitamin B6-pyridOXINE 50 MG Tab PO SCH (20:20)
[2021-09-12] MEDS: Albuterol/Ipratropium 4 GM Inhalation Spray INH SCH ×4 (01:16→16:16)
[2021-09-12 05:25] LABS: BLOOD UREA NITROGEN,BUN 10 mg/dL (7.0-18.0); CARBON DIOXIDE,CO2 25.3 mmol/L (21.0-32.0); CHLORIDE,CL 106 mmol/L (98-107); GLUCOSE RANDOM 109 mg/dL (74-106); POTASSIUM,K 4.4 mmol/L (3.5-5.1); SODIUM,NA 141 mmol/L (136-145)
[2021-09-12] MEDS: Heparin Sodium/0.45% NaCl 500 ML IV SCH (06:54)
[2021-09-12] MEDS: Pantoprazole 40 MG Tab.CR PO SCH (08:30)
[2021-09-12] MEDS: Cholecalciferol (Vitamin D3) 25 MCG Tab PO SCH (08:30)
[2021-09-12] MEDS: Dexamethasone 4 MG Tab PO SCH (08:30)
[2021-09-12] MEDS: Ascorbic Acid 500 MG Tab PO SCH (08:30)
[2021-09-12] MEDS: FLUoxetine 20 MG Cap PO SCH ×2 (08:30→20:58)
[2021-09-12] MEDS: Albuterol/Ipratropium 3.0-0.5 MG/3 ML Neb Soln NEB PRN (08:32)
--- NOTE | 2021-09-12 08:54 | PN ---
THC Physician - Brief Progress [id number]/10/2021 08:53[facility] franciscoMartín, SHANIQUA - [place] ([place]) - [place] COVID+Date of Service 09/12/2021 08:53HP I/Events of Note eICU Update NoteCXR ordered to work up hypoxia, per report improved now that mask ad justed and patient repositioned.Interventions Major-Respiratory failure - evaluation and managementEl ectronically Signed by: LIV HAINES) on 09/12/2021 08:53
[2021-09-12] MEDS ORDERED: FLUoxetine 20 MG Cap PO SCH (09:00)
--- NOTE | 2021-09-12 09:58 | CR ---
Indication: Worsening hypoxia Comparison: None available. Technique: Single AP view chest Findings: There is extensive confluent interstitial and airspace opacity seen throughout the bilateral hemithoraces. There is no pneumothorax or pleural effusion. The cardiomediastinal silhouette is within normal limits. The bony thorax is grossly intact. Impression: Extensive confluent interstitial and airspace opacities seen throughout the bilateral hemithoraces which can be seen in the setting of respiratory distress syndrome. Correlate with history of saavedra virus status as this can be seen in severe saavedra virus pneumonia. Dictated by Lb Raygoza MD @ 09/12/2021 9:56:52 AM (Electronically Signed)
[2021-09-12] MEDS ORDERED: Lidocaine 2% 5 ML SDV ONE (11:19)
--- NOTE | 2021-09-12 11:43 | PCM.SN.2 ---
Time Documentation - Time Based Documentation Time Includes the Following: Time Spent [id number] with the Patient, Coun seling/Education, Records Reviewed/Chart Prep Arterial Line Insertion - Arterial Line Insertion Arterial Line Indication: hemodynamic monitoring Site: radial (R) Allens test: negative Prep: CDC/MBT Guidelines, Sterile Drapes, Chlorhexidine Gauge: 20Fr Local Anesthesia - Lidocaine (Xylocaine): 2% Plain Local Anesthetic Volume: 1cc Ultrasound guided: No Secured with suture: Yes Dressing applied: by provider, op-site dressing Complications: No
[2021-09-12] MEDS: ZINC 50 MG PO SCH (11:45)
[2021-09-12] MEDS: [UNRECOGNIZED DRUG - OTHER] PO SCH (11:54)
--- NOTE | 2021-09-12 12:39 | PCM.PN ---
- General Info Date of Service: 09/12/21 - Patient Data Vitals - Most Recent: Last Vital Signs Temp 36.9 C 09/12/21 12:00 Pulse 105 H 09/04/21 07:00 Resp 28 H 09/12/21 12:00 BP 103/67 09/12/21 12:00 Pulse Ox 94 L 09/12/21 12:00 Weight - Most Recent: 88.073 kg I&O - Last 24 Hours: Intake & Output 09/11/21 09/12/21 09/12/21 22:59 06:59 14:59 Intake Total 900 1200 Output Total 850 1800 Balance 50 -600 Lab Results Last 24 Hours: Laboratory Results - last 24 hr 09/11/21 09/11/21 09/12/21 Range/Units 14:39 22:22 04:50 WBC (4.0-11.0) K/uL RBC (4.30-5.90) M/uL Hgb (12.0-16.0) g/dL Hct (36.0-46.0) % MCV (80.0-98.0) fL MCH (27.0-32.0) pg MCHC (31.0-37.0) g/dL RDW Std Deviation (28.0-62.0) fl RDW Coeff of Kwasi (11.0-15.0) % Plt Count (150-400) K/uL MPV (7.40-12.00) fL Neut % (Auto) (48.0-80.0) % Lymph % (Auto) (16.0-40.0) % [place] % (Auto) (0.0-15.0) % Eos % (Auto) (0.0-7.0) % Baso % (Auto) (0.0-1.5) % Neut # (Auto) (1.4-5.7) K/uL Lymph # (Auto) (0.6-2.4) K/uL [place] # (Auto) (0.0-0.8) K/uL Eos # (Auto) (0.0-0.7) K/uL Baso # (Auto) (0.0-0.1) K/uL Nucleated RBC % /100WBC Nucleated RBCs # K/uL APTT 64.2 H 77.9 H 48.9 H (18.6-31.3) SEC ABG pH (7.35-7.45) ABG pCO2 (35-45) mmHG ABG pO2 (80-105) mmHG ABG HCO3 (22-26) mEq/L ABG Total CO2 (23-27) mmol/L ABG Base Excess (-2.0-3.0) Sodium (136-145) mmol/L Potassium (3.5-5.1) mmol/L Chloride (98-107) mmol/L Carbon Dioxide (21.0-32.0) mmol/L BUN (7.0-18.0) mg/dL Creatinine (0.6-1.0) mg/dL Est Cr Clr Drug Dosing mL/min Estimated GFR (MDRD) ml/min Glucose (74-106) mg/dL Calcium (8.5-10.1) mg/dL Phosphorus (2.6-4.7) mg/dL Magnesium (1.8-2.4) mg/dL Total Bilirubin (0.2-1.0) mg/dL AST (15-37) IU/L ALT (14-63) IU/L Alkaline Phosphatase (46-116) U/L Total Protein (6.4-8.2) g/dL Albumin (3.4-5.0) g/dL Globulin (2.6-4.0) g/dL Albumin/Globulin Ratio (0.9-1.6) 09/12/21 09/12/21 09/12/21 Range/Units 04:50 04:50 08:10 WBC 11.88 H (4.0-11.0) K/uL RBC 4.04 L (4.30-5.90) M/uL Hgb 11.2 L (12.0-16.0) g/dL Hct 34.0 L (36.0-46.0) % MCV 84.2 (80.0-98.0) fL MCH 27.7 (27.0-32.0) pg MCHC 32.9 (31.0-37.0) g/dL RDW Std Deviation 40.5 (28.0-62.0) fl RDW Coeff of Kwasi 14 (11.0-15.0) % Plt Count 350 (150-400) K/uL MPV 9.40 (7.40-12.00) fL Neut % (Auto) 81.4 H (48.0-80.0) % Lymph % (Auto) 12.1 L (16.0-40.0) % [place] % (Auto) 4.5 (0.0-15.0) % Eos % (Auto) 1.8 (0.0-7.0) % Baso % (Auto) 0.2 (0.0-1.5) % Neut # (Auto) 9.7 H (1.4-5.7) K/uL Lymph # (Auto) 1.4 (0.6-2.4) K/uL [place] # (Auto) 0.5 (0.0-0.8) K/uL Eos # (Auto) 0.2 (0.0-0.7) K/uL Baso # (Auto) 0.0 (0.0-0.1) K/uL Nucleated RBC % 0.0 /100WBC Nucleated RBCs # 0 K/uL APTT (18.6-31.3) SEC ABG pH 7.41 (7.35-7.45) ABG pCO2 41 (35-45) mmHG ABG pO2 61 L (80-105) mmHG ABG HCO3 26 (22-26) mEq/L ABG Total CO2 23.8 (23-27) mmol/L ABG Base Excess 1.1 (-2.0-3.0) Sodium 141 (136-145) mmol/L Potassium 4.4 (3.5-5.1) mmol/L Chloride 106 (98-107) mmol/L Carbon Dioxide 25.3 (21.0-32.0) mmol/L BUN 10 (7.0-18.0) mg/dL Creatinine 0.7 (0.6-1.0) mg/dL Est Cr Clr Drug Dosing 115.64 mL/min Estimated GFR (MDRD) > 60.0 ml/min Glucose 109 H (74-106) mg/dL Calcium 8.0 L (8.5-10.1) mg/dL Phosphorus 4.1 (2.6-4.7) mg/dL Magnesium 1.9 (1.8-2.4) mg/dL Total Bilirubin 0.4 (0.2-1.0) mg/dL AST 22 (15-37) IU/L ALT 28 (14-63) IU/L Alkaline Phosphatase 161 H (46-116) U/L Total Protein 6.0 L (6.4-8.2) g/dL Albumin 2.3 L (3.4-5.0) g/dL Globulin 3.7 (2.6-4.0) g/dL Albumin/Globulin Ratio 0.6 L (0.9-1.6) 09/12/21 Range/Units 11:48 WBC (4.0-11.0) K/uL RBC (4.30-5.90) M/uL Hgb (12.0-16.0) g/dL Hct (36.0-46.0) % MCV (80.0-98.0) fL MCH (27.0-32.0) pg MCHC (31.0-37.0) g/dL RDW Std Deviation (28.0-62.0) fl RDW Coeff of Kwasi (11.0-15.0) % Plt Count (150-400) K/uL MPV (7.40-12.00) fL Neut % (Auto) (48.0-80.0) % Lymph % (Auto) (16.0-40.0) % [place] % (Auto) (0.0-15.0) % Eos % (Auto) (0.0-7.0) % Baso % (Auto) (0.0-1.5) % Neut # (Auto) (1.4-5.7) K/uL Lymph # (Auto) (0.6-2.4) K/uL [place] # (Auto) (0.0-0.8) K/uL Eos # (Auto) (0.0-0.7) K/uL Baso # (Auto) (0.0-0.1) K/uL Nucleated RBC % /100WBC Nucleated RBCs # K/uL APTT 49.2 H (18.6-31.3) SEC ABG pH (7.35-7.45) ABG pCO2 (35-45) mmHG ABG pO2 (80-105) mmHG ABG HCO3 (22-26) mEq/L ABG Total CO2 (23-27) mmol/L ABG Base Excess (-2.0-3.0) Sodium (136-145) mmol/L Potassium (3.5-5.1) mmol/L Chloride (98-107) mmol/L Carbon Dioxide (21.0-32.0) mmol/L BUN (7.0-18.0) mg/dL Creatinine (0.6-1.0) mg/dL Est Cr Clr Drug Dosing mL/min Estimated GFR (MDRD) ml/min Glucose (74-106) mg/dL Calcium (8.5-10.1) mg/dL Phosphorus (2.6-4.7) mg/dL Magnesium (1.8-2.4) mg/dL Total Bilirubin (0.2-1.0) mg/dL AST (15-37) IU/L ALT (14-63) IU/L Alkaline Phosphatase (46-116) U/L Total Protein (6.4-8.2) g/dL Albumin (3.4-5.0) g/dL Globulin (2.6-4.0) g/dL Albumin/Globulin Ratio (0.9-1.6) Med Orders - Current: Current Medications Acetaminophen (Acetaminophen 325 Mg Tab) 650 mg PO Q6H PRN PRN Reason: Pain (Mild 1-3)/fever Last Admin: 09/04/21 12:33 Dose: 650 mg Documented by: Albuterol/Ipratropium (Albuterol/Ipratropium 3.0-0.5 Mg/3 Ml Neb Soln) 3 ml NEB Q4HRRT PRN PRN Reason: Shortness Of Breath/wheezing Last Admin: 09/12/21 08:32 Dose: 3 ml Documented by: Albuterol/Ipratropium (Albuterol/Ipratropium 4 Gm Inhalation [place]) 0 gm INH Q4H [facility] Last Admin: 09/12/21 08:50 Dose: Not Given Documented by: Ascorbic Acid (Ascorbic Acid 500 Mg Tab) 1,000 mg PO DAILY [facility] Last Admin: 09/12/21 08:30 Dose: 1,000 mg Documented by: Cholecalciferol (Cholecalciferol (Vitamin D3) 25 Mcg Tab) 50 mcg PO DAILY [facility] Last Admin: 09/12/21 08:30 Dose: 50 mcg Documented by: Cyanocobalamin (Cyanocobalamin (Vitamin B12) 500 Mcg Tab) 1,000 mcg PO DAILY [place] Dexamethasone (Dexamethasone 4 Mg Tab) 6 mg PO DAILY [place] Last Admin: 09/12/21 08:30 Dose: 6 mg Documented by: Fluoxetine HCl (Fluoxetine 20 Mg Cap) 20 mg PO BID [place] Stop: 09/25/21 09:01 Last Admin: 09/12/21 08:30 Dose: 20 mg Documented by: Guaifenesin/Dextromethorphan (Guaifenesin/Dextromethorphan 100-10 Mg/5 Ml Soln 10 Ml Cup) 10 ml PO Q6H PRN PRN Reason: Cough Last Admin: 09/10/21 03:33 Dose: 10 ml Documented by: Heparin Sodium/Sodium Chloride (Heparin 25,000 Units In 1/2 Ns 500 Ml) 500 mls @ 26.263 mls/hr IV TITRATE [place]; Protocol Last Admin: 09/12/21 06:54 Dose: 15 units/kg/hr, 26.263 mls/hr Documented by: Dexmedetomidine/Sodium (Chloride 400 mcg/ Premix) 100 mls @ 4.393 mls/hr IV TITRATE [place]; Protocol Last Admin: 09/12/21 08:31 Dose: 0.4 mcg/kg/hr, 8.786 mls/hr Documented by: Melatonin (Melatonin 3 Mg Tab) 6 mg PO BEDTIME PRN PRN Reason: Insomnia Last Admin: 09/08/21 21:38 Dose: 6 mg Documented by: Ondansetron HCl (Ondansetron 4 Mg/2 Ml Sdv) 4 mg IVPUSH Q4H PRN PRN Reason: Nausea/Vomiting Pantoprazole Sodium (Pantoprazole 40 Mg Tab.Cr) 40 mg PO DAILY [place] Last Admin: 09/12/21 08:30 Dose: 40 mg Documented by: Zinc 50 Mg Tab 1 each PO DAILY [place] Last Admin: 09/12/21 11:45 Dose: 1 each Documented by: Gamma-Aminobutyric Acid (Jaxon) 750mg Tab 1 each PO DAILY [place] Last Admin: 09/12/21 11:54 Dose: 1 each Documented by: Pyridoxine HCl (Vitamin B6-Pyridoxine 50 Mg Tab) 100 mg PO BEDTIME [place] Last Admin: 09/11/21 20:20 Dose: 100 mg Documented by: Sodium Chloride (Sodium Chloride 0.9% 10 Ml Syringe) 10 ml FLUSH ASDIRECTED PRN PRN Reason: Keep Vein Open Last Admin: 09/03/21 18:01 Dose: 10 ml Documented by: Sodium Chloride (Sodium Chloride 0.9% 2.5 Ml Syringe) 2.5 ml FLUSH ASDIRECTED PRN PRN Reason: Keep Vein Open Last Admin: 09/03/21 18:00 Dose: 2.5 ml Documented by: Natasha Epstein (Natasha Epstein Medicated Pads 40/Jar) 1 pad TOP ASDIRECTED PRN PRN Reason: Hemorrhoids Last Admin: 09/11/21 21:44 Dose: 1 bandage Documented by: Discontinued Medications Dexamethasone (Dexamethasone 10 Mg/Ml Sdv) 6 mg IVPUSH ONETIME ONE Stop: 09/03/21 17:43 Last Admin: 09/03/21 18:01 Dose: 6 mg Documented by: Enoxaparin Sodium (Enoxaparin 40 Mg/0.4 Ml Syringe) 40 mg SUBCUT Q24H [place] Last Admin: 09/10/21 21:41 Dose: Not Given Documented by: Fluoxetine HCl (Fluoxetine 20 Mg Cap) 20 mg PO BID [place] Stop: 09/25/21 09:01 Heparin Sodium (Porcine) (Heparin Sodium 5,000 Units/Ml Vial) 7,000 units IVPUSH ONETIME ONE Stop: 09/10/21 15:01 Last Admin: 09/10/21 15:12 Dose: 7,000 units Documented by: Heparin Sodium (Porcine) (Heparin Sodium 5,000 Units/Ml Vial) 1,500 units IVPUSH ONETIME ONE Stop: 09/11/21 02:52 Last Admin: 09/11/21 03:00 Dose: 1,500 units Documented by: Heparin Sodium (Porcine) (Heparin Sodium 5,000 Units/Ml Vial) 0 units IVPUSH .BOLUS ONE Stop: 09/11/21 10:01 Last Admin: 09/11/21 10:36 Dose: 1,500 units Documented by: Lactated Ringer's (Ringers, Lactated) 1,000 mls @ 999 mls/hr IV ASDIRECTED [place] Last Admin: 09/03/21 18:00 Dose: 999 mls/hr Documented by: Remdesivir 200 mg/ Sodium (Chloride) 250 mls @ 250 mls/hr IV ONETIME ONE Stop: 09/03/21 20:44 Last Admin: 09/03/21 21:34 Dose: 250 mls/hr Documented by: Remdesivir 100 mg/ Sodium (Chloride) 100 mls @ 100 mls/hr IV Q24H [place] Stop: 09/07/21 22:44 Last Admin: 09/07/21 21:10 Dose: 100 mls/hr Documented by: Pantoprazole Sodium 40 mg/ (Sodium Chloride) 10 mls @ 300 mls/hr IV Q24H [facility] Last Admin: 09/06/21 08:06 Dose: 300 mls/hr Documented by: Tocilizumab 750 mg/ Sodium (Chloride) 137.5 mls @ 137.5 mls/hr IV ONETIME ONE Stop: 09/04/21 13:31 Last Admin: 09/04/21 14:14 Dose: 137.5 mls/hr Documented by: Iopamidol (Iopamidol 755 Mg/Ml 500 Ml Multipack Bottle) 100 ml IVPUSH ONETIME [facility] Stop: 09/03/21 18:53 Last Admin: 09/03/21 18:52 Dose: 100 ml Documented by: Iopamidol (Iopamidol 755 Mg/Ml 500 Ml Multipack Bottle) 75 ml IVPUSH ONETIME STA Stop: 09/10/21 16:19 Last Admin: 09/10/21 16:19 Dose: 75 ml Documented by: Lidocaine (Lidocaine 2% 5 Ml Sdv) Confirm Administered Dose 5 ml .ROUTE .STK-MED ONE Stop: 09/12/21 11:20 Lorazepam (Lorazepam 2 Mg/Ml Sdv) 1 mg IVPUSH ONETIME PRN PRN Reason: Anxiety Last Admin: 09/09/21 22:29 Dose: 1 mg Documented by: Potassium Chloride (Potassium Chloride 20 Meq Tab.Er) 40 meq PO ONETIME ONE Stop: 09/09/21 10:16 Last Admin: 09/09/21 10:40 Dose: 40 meq Documented by: Potassium Chloride (Potassium Chloride 10% 20 Meq/15 Ml Soln 30 Ml Ud Cup) 40 meq PO ONETIME ONE Stop: 09/11/21 06:12 Last Admin: 09/11/21 06:26 Dose: Not Given Documented by: Potassium Chloride (Potassium Chloride 20 Meq Tab.Er) 40 meq PO ONETIME ONE Stop: 09/11/21 06:26 Last Admin: 09/11/21 06:30 Dose: 40 meq Documented by: - Exam General: Alert, Oriented Neck: Supple Lungs: Normal Respiratory Effort, Rhonchi Cardiovascular: Regular Rate, Regular Rhythm GI/Abdominal Exam: Soft, Non-Tender, No Distention Extremities: Non-Tender, No Pedal Edema Skin: Warm, Dry, Intact Neurological: No New Focal Deficit - Patient Data Lab Results Last 24 hrs: Laboratory Results - last 24 hr 09/11/21 09/11/21 09/12/21 Range/Units 14:39 22:22 04:50 WBC (4.0-11.0) K/uL RBC (4.30-5.90) M/uL Hgb (12.0-16.0) g/dL Hct (36.0-46.0) % MCV (80.0-98.0) fL MCH (27.0-32.0) pg MCHC (31.0-37.0) g/dL RDW Std Deviation (28.0-62.0) fl RDW Coeff of Kwasi (11.0-15.0) % Plt Count (150-400) K/uL MPV (7.40-12.00) fL Neut % (Auto) (48.0-80.0) % Lymph % (Auto) (16.0-40.0) % [place] % (Auto) (0.0-15.0) % Eos % (Auto) (0.0-7.0) % Baso % (Auto) (0.0-1.5) % Neut # (Auto) (1.4-5.7) K/uL Lymph # (Auto) (0.6-2.4) K/uL [place] # (Auto) (0.0-0.8) K/uL Eos # (Auto) (0.0-0.7) K/uL Baso # (Auto) (0.0-0.1) K/uL Nucleated RBC % /100WBC Nucleated RBCs # K/uL APTT 64.2 H 77.9 H 48.9 H (18.6-31.3) SEC ABG pH (7.35-7.45) ABG pCO2 (35-45) mmHG ABG pO2 (80-105) mmHG ABG HCO3 (22-26) mEq/L ABG Total CO2 (23-27) mmol/L ABG Base Excess (-2.0-3.0) Sodium (136-145) mmol/L Potassium (3.5-5.1) mmol/L Chloride (98-107) mmol/L Carbon Dioxide (21.0-32.0) mmol/L BUN (7.0-18.0) mg/dL Creatinine (0.6-1.0) mg/dL Est Cr Clr Drug Dosing mL/min Estimated GFR (MDRD) ml/min Glucose (74-106) mg/dL Calcium (8.5-10.1) mg/dL Phosphorus (2.6-4.7) mg/dL Magnesium (1.8-2.4) mg/dL Total Bilirubin (0.2-1.0) mg/dL AST (15-37) IU/L ALT (14-63) IU/L Alkaline Phosphatase (46-116) U/L Total Protein (6.4-8.2) g/dL Albumin (3.4-5.0) g/dL Globulin (2.6-4.0) g/dL Albumin/Globulin Ratio (0.9-1.6) 09/12/21 09/12/21 09/12/21 Range/Units 04:50 04:50 08:10 WBC 11.88 H (4.0-11.0) K/uL RBC 4.04 L (4.30-5.90) M/uL Hgb 11.2 L (12.0-16.0) g/dL Hct 34.0 L (36.0-46.0) % MCV 84.2 (80.0-98.0) fL MCH 27.7 (27.0-32.0) pg MCHC 32.9 (31.0-37.0) g/dL RDW Std Deviation 40.5 (28.0-62.0) fl RDW Coeff of Kwasi 14 (11.0-15.0) % Plt Count 350 (150-400) K/uL MPV 9.40 (7.40-12.00) fL Neut % (Auto) 81.4 H (48.0-80.0) % Lymph % (Auto) 12.1 L (16.0-40.0) % [place] % (Auto) 4.5 (0.0-15.0) % Eos % (Auto) 1.8 (0.0-7.0) % Baso % (Auto) 0.2 (0.0-1.5) % Neut # (Auto) 9.7 H (1.4-5.7) K/uL Lymph # (Auto) 1.4 (0.6-2.4) K/uL [place] # (Auto) 0.5 (0.0-0.8) K/uL Eos # (Auto) 0.2 (0.0-0.7) K/uL Baso # (Auto) 0.0 (0.0-0.1) K/uL Nucleated RBC % 0.0 /100WBC Nucleated RBCs # 0 K/uL APTT (18.6-31.3) SEC ABG pH 7.41 (7.35-7.45) ABG pCO2 41 (35-45) mmHG ABG pO2 61 L (80-105) mmHG ABG HCO3 26 (22-26) mEq/L ABG Total CO2 23.8 (23-27) mmol/L ABG Base Excess 1.1 (-2.0-3.0) Sodium 141 (136-145) mmol/L Potassium 4.4 (3.5-5.1) mmol/L Chloride 106 (98-107) mmol/L Carbon Dioxide 25.3 (21.0-32.0) mmol/L BUN 10 (7.0-18.0) mg/dL Creatinine 0.7 (0.6-1.0) mg/dL Est Cr Clr Drug Dosing 115.64 mL/min Estimated GFR (MDRD) > 60.0 ml/min Glucose 109 H (74-106) mg/dL Calcium 8.0 L (8.5-10.1) mg/dL Phosphorus 4.1 (2.6-4.7) mg/dL Magnesium 1.9 (1.8-2.4) mg/dL Total Bilirubin 0.4 (0.2-1.0) mg/dL AST 22 (15-37) IU/L ALT 28 (14-63) IU/L Alkaline Phosphatase 161 H (46-116) U/L Total Protein 6.0 L (6.4-8.2) g/dL Albumin 2.3 L (3.4-5.0) g/dL Globulin 3.7 (2.6-4.0) g/dL Albumin/Globulin Ratio 0.6 L (0.9-1.6) 09/12/21 Range/Units 11:48 WBC (4.0-11.0) K/uL RBC (4.30-5.90) M/uL Hgb (12.0-16.0) g/dL Hct (36.0-46.0) % MCV (80.0-98.0) fL MCH (27.0-32.0) pg MCHC (31.0-37.0) g/dL RDW Std Deviation (28.0-62.0) fl RDW Coeff of Kwasi (11.0-15.0) % Plt Count (150-400) K/uL MPV (7.40-12.00) fL Neut % (Auto) (48.0-80.0) % Lymph % (Auto) (16.0-40.0) % [place] % (Auto) (0.0-15.0) % Eos % (Auto) (0.0-7.0) % Baso % (Auto) (0.0-1.5) % Neut # (Auto) (1.4-5.7) K/uL Lymph # (Auto) (0.6-2.4) K/uL [place] # (Auto) (0.0-0.8) K/uL Eos # (Auto) (0.0-0.7) K/uL Baso # (Auto) (0.0-0.1) K/uL Nucleated RBC % /100WBC Nucleated RBCs # K/uL APTT 49.2 H (18.6-31.3) SEC ABG pH (7.35-7.45) ABG pCO2 (35-45) mmHG ABG pO2 (80-105) mmHG ABG HCO3 (22-26) mEq/L ABG Total CO2 (23-27) mmol/L ABG Base Excess (-2.0-3.0) Sodium (136-145) mmol/L Potassium (3.5-5.1) mmol/L Chloride (98-107) mmol/L Carbon Dioxide (21.0-32.0) mmol/L BUN (7.0-18.0) mg/dL Creatinine (0.6-1.0) mg/dL Est Cr Clr Drug Dosing mL/min Estimated GFR (MDRD) ml/min Glucose (74-106) mg/dL Calcium (8.5-10.1) mg/dL Phosphorus (2.6-4.7) mg/dL Magnesium (1.8-2.4) mg/dL Total Bilirubin (0.2-1.0) mg/dL AST (15-37) IU/L ALT (14-63) IU/L Alkaline Phosphatase (46-116) U/L Total Protein (6.4-8.2) g/dL Albumin (3.4-5.0) g/dL Globulin (2.6-4.0) g/dL Albumin/Globulin Ratio (0.9-1.6) Result Diagrams: 09/12/21 04:50 09/12/21 04:50 Sepsis Event Note - Evaluation Sepsis Screening Result: No Definite Risk - Focused Exam Vital Signs: Vital Signs Temp Resp BP BP Pulse Ox 09/12/21 12:00 36.9 C 28 H 99/56 L 103/67 94 L 09/12/21 11:00 29 H 100/55 L 96 09/12/21 10:00 28 H 102/54 L 91 L 09/12/21 09:00 41 H 92/38 L 87 L 09/12/21 08:30 39 H 88 L 09/12/21 08:05 41 H 86 L 09/12/21 08:00 28 H 94/47 L 88 L 09/12/21 07:40 34 H 82 L 09/12/21 07:00 27 H 117/63 90 L 09/12/21 06:00 35 H 115/69 90 L 09/12/21 05:00 36 H 121/62 91 L 09/12/21 04:00 34 H 105/59 L 88 L 09/12/21 03:00 36.6 C 33 H 110/53 L 86 L 09/12/21 02:00 36 H 117/77 91 L 09/12/21 01:00 36 H 130/67 88 L - Problem List & Annotations (1) COVID-19 SNOMED Code(s): 100707176 Code(s): U07.1 - COVID-19 Status: Acute Current Visit: Yes (2) Hypoxia SNOMED Code(s): 573801995 Code(s): R09.02 - HYPOXEMIA Status: Acute Current Visit: Yes - Problem List Review Problem List Initiated/Reviewed/Updated: Yes - My Orders Last 24 Hours: My Active Orders 09/12/21 12:20 ABG [BLOOD GAS ARTERIAL] [BG] Routine 09/12/21 16:15 PTT,PARTIAL THROMBOPLSTIN TIME [COAG] Q6H 09/12/21 22:15 PTT,PARTIAL THROMBOPLSTIN TIME [COAG] Q6H 09/13/21 05:11 CBC WITH AUTO DIFF [HEME] AM COMPREHENSIVE METABOLIC PN,CMP [CHEM] AM 09/14/21 05:11 CBC WITH AUTO DIFF [HEME] AM COMPREHENSIVE METABOLIC PN,CMP [CHEM] AM - Plan Plan:: 25-year-old female admitted for acute hypoxic respiratory failure secondary to Covid pneumonia acute hypoxic respiratory failure: Improving with BIPAP and precedex patient appears comfortable when awake, She does become tachypnic when sleeping. We will place a-artis and check serial ABGs COVID: on dexamethasone, finished remdesivir. PE: on heparin drip Possible Post depression: Dr. Turpin has been consulted
--- NOTE | 2021-09-12 13:48 | PN ---
THC Physician - Brief Progress [id number]/10/2021 13:47[facility] Martín Onofre, [place] COVID+Date of Service 09/12/2021 13:47HP I/Events of Note eICU Update NoteNotified of request for cha as patient desaturates when going to t he bedpan, order placed. ABGs ordered q6h to assess trend over next 24 hours given bedside RN concern s for tenuous respiratory status (on my review no urgent indication for intubation, RR 20s, adequate gas exchange on ABGs, reasonable minute ventilation). Case discussed with Dr. Lucero over telephone.In terventions Major-Respiratory failure - evaluation and management
[2021-09-12] MEDS ORDERED: Albuterol/Ipratropium 4 GM Inhalation Spray INH PRN (14:00)
[2021-09-12] MEDS: Albuterol/Ipratropium 3.0-0.5 MG/3 ML Neb Soln NEB SCH ×3 (14:06→20:59)
--- NOTE | 2021-09-12 15:48 | PN ---
THC Physician - Brief Progress [id number]/2021 15:33[facility] Martín singh [place] - [place] [facility] [place] COVID+Date of Service 09/12/2021 15:33HP I/Events of Note eICU Update NoteNotified patient hypotensive, norepinephrine ordered per bedside req uest.Interventions Major-Shock - evaluation and management
--- NOTE | 2021-09-12 16:08 | CR ---
INDICATION: Central line placement. TECHNIQUE : Supine portable AP image of the chest. COMPARISON: Portable chest x-ray from 9:13 a.m. today. FINDINGS: Interval placement of right jugular central line with tip in the SVC. Otherwise unchanged with dense infiltrates in both lungs. IMPRESSION: Interval placement a central line in the SVC. Dictated by Abdi Middleton MD @ 09/12/2021 4:06:28 PM (Electronically Signed)
--- NOTE | 2021-09-12 16:34 | PCM.PR.CLI ---
Central Line Insertion - Central Line Insertion Site: internal jugular (R) Prep: CDC/MBT Guidelines, Sterile Drapes, Chlorhexidine Lumen: triple Gauge: 7Fr Local Anesthesia - Lidocaine (Xylocaine): 1% Plain Local Anesthetic Volume: 1cc Ultrasound guided: Yes CL Complications: No Secured with suture: Yes Post placement confirmation: CXR, all ports aspirated, all ports flushed (anti- reflux caps placed on all 3 ports) CXR post-procedure: no pneumothorax, no hemothorax Dressing applied: by provider, chlorhexidine disc used, op-site dressing (Pt. tolerated procedure well.)
[2021-09-12] MEDS: Vitamin B6-pyridOXINE 50 MG Tab PO SCH (20:58)
[2021-09-12] MEDS: Cyanocobalamin (Vitamin B12) 500 MCG Tab PO SCH (20:58)
[2021-09-13] MEDS: Albuterol/Ipratropium 3.0-0.5 MG/3 ML Neb Soln NEB SCH ×6 (01:05→21:04)
[2021-09-13] MEDS: Heparin Sodium/0.45% NaCl 500 ML IV SCH ×2 (03:22→20:01)
[2021-09-13 07:56] LABS: BLOOD UREA NITROGEN,BUN 10 mg/dL (7.0-18.0); CHLORIDE,CL 104 mmol/L (98-107); GLUCOSE RANDOM 107 mg/dL (74-106); SODIUM,NA 140 mmol/L (136-145)
[2021-09-13] MEDS: Pantoprazole 40 MG Tab.CR PO SCH (09:00)
[2021-09-13] MEDS: Cyanocobalamin (Vitamin B12) 500 MCG Tab PO SCH (09:00)
[2021-09-13] MEDS: Ascorbic Acid 500 MG Tab PO SCH (09:00)
[2021-09-13] MEDS: Dexamethasone 4 MG Tab PO SCH (09:00)
[2021-09-13] MEDS: FLUoxetine 20 MG Cap PO SCH ×2 (09:00→20:00)
[2021-09-13] MEDS: ZINC 50 MG PO SCH (09:00)
[2021-09-13] MEDS: Cholecalciferol (Vitamin D3) 25 MCG Tab PO SCH (09:01)
[2021-09-13] MEDS: [UNRECOGNIZED DRUG - OTHER] PO SCH (09:30)
--- NOTE | 2021-09-13 11:28 | PCM.PN ---
- General Info Date of Service: 09/13/21 - Review of Systems Systems Review Comment:: patient is comfortable on BIPAP, does desat with movement, - Patient Data Vitals - Most Recent: Last Vital Signs Temp 36.3 C 09/13/21 08:00 Pulse 105 H 09/04/21 07:00 Resp 28 H 09/13/21 09:00 BP 122/69 09/13/21 09:00 Pulse Ox 89 L 09/13/21 09:00 Weight - Most Recent: 92.76 kg I&O - Last 24 Hours: Intake & Output 09/12/21 09/13/21 09/13/21 22:59 06:59 14:59 Intake Total 1240 1888 Output Total 1250 1150 Balance -10 738 Lab Results Last 24 Hours: Laboratory Results - last 24 hr 09/12/21 09/12/21 09/12/21 Range/Units 11:48 13:10 16:50 WBC (4.0-11.0) K/uL RBC (4.30-5.90) M/uL Hgb (12.0-16.0) g/dL Hct (36.0-46.0) % MCV (80.0-98.0) fL MCH (27.0-32.0) pg MCHC (31.0-37.0) g/dL RDW Std Deviation (28.0-62.0) fl RDW Coeff of Kwasi (11.0-15.0) % Plt Count (150-400) K/uL MPV (7.40-12.00) fL Neut % (Auto) (48.0-80.0) % Lymph % (Auto) (16.0-40.0) % Burt % (Auto) (0.0-15.0) % Eos % (Auto) (0.0-7.0) % Baso % (Auto) (0.0-1.5) % Neut # (Auto) (1.4-5.7) K/uL Lymph # (Auto) (0.6-2.4) K/uL Burt # (Auto) (0.0-0.8) K/uL Eos # (Auto) (0.0-0.7) K/uL Baso # (Auto) (0.0-0.1) K/uL Nucleated RBC % /100WBC Nucleated RBCs # K/uL APTT 49.2 H 48.3 H (18.6-31.3) SEC ABG pH 7.42 (7.35-7.45) ABG pCO2 40 (35-45) mmHG ABG pO2 75 L (80-105) mmHG ABG HCO3 26 (22-26) mEq/L ABG Total CO2 23.4 (23-27) mmol/L ABG Base Excess 1.0 (-2.0-3.0) Sodium (136-145) mmol/L Potassium (3.5-5.1) mmol/L Chloride (98-107) mmol/L Carbon Dioxide (21.0-32.0) mmol/L BUN (7.0-18.0) mg/dL Creatinine (0.6-1.0) mg/dL Est Cr Clr Drug Dosing mL/min Estimated GFR (MDRD) ml/min Glucose (74-106) mg/dL Calcium (8.5-10.1) mg/dL Total Bilirubin (0.2-1.0) mg/dL AST (15-37) IU/L ALT (14-63) IU/L Alkaline Phosphatase (46-116) U/L Total Protein (6.4-8.2) g/dL Albumin (3.4-5.0) g/dL Globulin (2.6-4.0) g/dL Albumin/Globulin Ratio (0.9-1.6) 09/12/21 09/12/21 09/13/21 Range/Units 18:00 22:15 00:00 WBC (4.0-11.0) K/uL RBC (4.30-5.90) M/uL Hgb (12.0-16.0) g/dL Hct (36.0-46.0) % MCV (80.0-98.0) fL MCH (27.0-32.0) pg MCHC (31.0-37.0) g/dL RDW Std Deviation (28.0-62.0) fl RDW Coeff of Kwasi (11.0-15.0) % Plt Count (150-400) K/uL MPV (7.40-12.00) fL Neut % (Auto) (48.0-80.0) % Lymph % (Auto) (16.0-40.0) % Burt % (Auto) (0.0-15.0) % Eos % (Auto) (0.0-7.0) % Baso % (Auto) (0.0-1.5) % Neut # (Auto) (1.4-5.7) K/uL Lymph # (Auto) (0.6-2.4) K/uL Burt # (Auto) (0.0-0.8) K/uL Eos # (Auto) (0.0-0.7) K/uL Baso # (Auto) (0.0-0.1) K/uL Nucleated RBC % /100WBC Nucleated RBCs # K/uL APTT 57.6 H (18.6-31.3) SEC ABG pH 7.46 H 7.39 (7.35-7.45) ABG pCO2 33 L 43 (35-45) mmHG ABG pO2 62 L 82 (80-105) mmHG ABG HCO3 24 26 (22-26) mEq/L ABG Total CO2 25 27 (23-27) mmol/L ABG Base Excess 1.0 1.0 (-2.0-3.0) Sodium (136-145) mmol/L Potassium (3.5-5.1) mmol/L Chloride (98-107) mmol/L Carbon Dioxide (21.0-32.0) mmol/L BUN (7.0-18.0) mg/dL Creatinine (0.6-1.0) mg/dL Est Cr Clr Drug Dosing mL/min Estimated GFR (MDRD) ml/min Glucose (74-106) mg/dL Calcium (8.5-10.1) mg/dL Total Bilirubin (0.2-1.0) mg/dL AST (15-37) IU/L ALT (14-63) IU/L Alkaline Phosphatase (46-116) U/L Total Protein (6.4-8.2) g/dL Albumin (3.4-5.0) g/dL Globulin (2.6-4.0) g/dL Albumin/Globulin Ratio (0.9-1.6) 09/13/21 09/13/21 09/13/21 Range/Units 06:36 06:36 06:36 WBC 10.20 (4.0-11.0) K/uL RBC 4.05 L (4.30-5.90) M/uL Hgb 11.2 L (12.0-16.0) g/dL Hct 33.9 L (36.0-46.0) % MCV 83.7 (80.0-98.0) fL MCH 27.7 (27.0-32.0) pg MCHC 33.0 (31.0-37.0) g/dL RDW Std Deviation 40.9 (28.0-62.0) fl RDW Coeff of Kwasi 14 (11.0-15.0) % Plt Count 351 (150-400) K/uL MPV 10.20 (7.40-12.00) fL Neut % (Auto) 82.1 H (48.0-80.0) % Lymph % (Auto) 10.8 L (16.0-40.0) % Burt % (Auto) 6.6 (0.0-15.0) % Eos % (Auto) 0.4 (0.0-7.0) % Baso % (Auto) 0.1 (0.0-1.5) % Neut # (Auto) 8.4 H (1.4-5.7) K/uL Lymph # (Auto) 1.1 (0.6-2.4) K/uL Burt # (Auto) 0.7 (0.0-0.8) K/uL Eos # (Auto) 0.0 (0.0-0.7) K/uL Baso # (Auto) 0.0 (0.0-0.1) K/uL Nucleated RBC % 0.0 /100WBC Nucleated RBCs # 0 K/uL APTT 69.7 H (18.6-31.3) SEC ABG pH (7.35-7.45) ABG pCO2 (35-45) mmHG ABG pO2 (80-105) mmHG ABG HCO3 (22-26) mEq/L ABG Total CO2 (23-27) mmol/L ABG Base Excess (-2.0-3.0) Sodium 140 (136-145) mmol/L Potassium 4.0 (3.5-5.1) mmol/L Chloride 104 (98-107) mmol/L Carbon Dioxide 24.0 (21.0-32.0) mmol/L BUN 10 (7.0-18.0) mg/dL Creatinine 0.6 (0.6-1.0) mg/dL Est Cr Clr Drug Dosing 134.91 mL/min Estimated GFR (MDRD) > 60.0 ml/min Glucose 107 H (74-106) mg/dL Calcium 8.5 (8.5-10.1) mg/dL Total Bilirubin 0.4 (0.2-1.0) mg/dL AST 26 (15-37) IU/L ALT 23 (14-63) IU/L Alkaline Phosphatase 173 H (46-116) U/L Total Protein 6.2 L (6.4-8.2) g/dL Albumin 2.5 L (3.4-5.0) g/dL Globulin 3.7 (2.6-4.0) g/dL Albumin/Globulin Ratio 0.7 L (0.9-1.6) 09/13/21 Range/Units 06:42 WBC (4.0-11.0) K/uL RBC (4.30-5.90) M/uL Hgb (12.0-16.0) g/dL Hct (36.0-46.0) % MCV (80.0-98.0) fL MCH (27.0-32.0) pg MCHC (31.0-37.0) g/dL RDW Std Deviation (28.0-62.0) fl RDW Coeff of Kwasi (11.0-15.0) % Plt Count (150-400) K/uL MPV (7.40-12.00) fL Neut % (Auto) (48.0-80.0) % Lymph % (Auto) (16.0-40.0) % Burt % (Auto) (0.0-15.0) % Eos % (Auto) (0.0-7.0) % Baso % (Auto) (0.0-1.5) % Neut # (Auto) (1.4-5.7) K/uL Lymph # (Auto) (0.6-2.4) K/uL Burt # (Auto) (0.0-0.8) K/uL Eos # (Auto) (0.0-0.7) K/uL Baso # (Auto) (0.0-0.1) K/uL Nucleated RBC % /100WBC Nucleated RBCs # K/uL APTT (18.6-31.3) SEC ABG pH 7.44 (7.35-7.45) ABG pCO2 38 (35-45) mmHG ABG pO2 66 L (80-105) mmHG ABG HCO3 26 (22-26) mEq/L ABG Total CO2 23.8 (23-27) mmol/L ABG Base Excess 1.9 (-2.0-3.0) Sodium (136-145) mmol/L Potassium (3.5-5.1) mmol/L Chloride (98-107) mmol/L Carbon Dioxide (21.0-32.0) mmol/L BUN (7.0-18.0) mg/dL Creatinine (0.6-1.0) mg/dL Est Cr Clr Drug Dosing mL/min Estimated GFR (MDRD) ml/min Glucose (74-106) mg/dL Calcium (8.5-10.1) mg/dL Total Bilirubin (0.2-1.0) mg/dL AST (15-37) IU/L ALT (14-63) IU/L Alkaline Phosphatase (46-116) U/L Total Protein (6.4-8.2) g/dL Albumin (3.4-5.0) g/dL Globulin (2.6-4.0) g/dL Albumin/Globulin Ratio (0.9-1.6) Med Orders - Current: Current Medications Acetaminophen (Acetaminophen 325 Mg Tab) 650 mg PO Q6H PRN PRN Reason: Pain (Mild 1-3)/fever Last Admin: 09/04/21 12:33 Dose: 650 mg Documented by: Albuterol/Ipratropium (Albuterol/Ipratropium 3.0-0.5 Mg/3 Ml Neb Soln) 3 ml NEB Q4HRRT [facility] Last Admin: 09/13/21 05:07 Dose: 3 ml Documented by: Albuterol/Ipratropium (Albuterol/Ipratropium 4 Gm Inhalation [place]) 0 gm INH Q4HRRT PRN PRN Reason: Dyspnea Ascorbic Acid (Ascorbic Acid 500 Mg Tab) 1,000 mg PO DAILY [facility] Last Admin: 09/13/21 09:00 Dose: 1,000 mg Documented by: Cholecalciferol (Cholecalciferol (Vitamin D3) 25 Mcg Tab) 50 mcg PO DAILY [place] Last Admin: 09/13/21 09:01 Dose: 50 mcg Documented by: Cyanocobalamin (Cyanocobalamin (Vitamin B12) 500 Mcg Tab) 1,000 mcg PO DAILY [place] Last Admin: 09/13/21 09:00 Dose: 1,000 mcg Documented by: Dexamethasone (Dexamethasone 4 Mg Tab) 6 mg PO DAILY [place] Last Admin: 09/13/21 09:00 Dose: 6 mg Documented by: Fluoxetine HCl (Fluoxetine 20 Mg Cap) 20 mg PO BID [place] Stop: 09/25/21 09:01 Last Admin: 09/13/21 09:00 Dose: 20 mg Documented by: Guaifenesin/Dextromethorphan (Guaifenesin/Dextromethorphan 100-10 Mg/5 Ml Soln 1 0 Ml Cup) 10 ml PO Q6H PRN PRN Reason: Cough Last Admin: 09/10/21 03:33 Dose: 10 ml Documented by: Heparin Sodium/Sodium Chloride (Heparin 25,000 Units In 1/2 Ns 500 Ml) 500 mls @ 26.263 mls/hr IV TITRATE [place]; Protocol Last Admin: 09/13/21 03:22 Dose: 17 units/kg/hr, 29.765 mls/hr Documented by: Dexmedetomidine/Sodium (Chloride 400 mcg/ Premix) 100 mls @ 4.393 mls/hr IV TITRATE [place]; Protocol Last Titration: 09/13/21 06:35 Dose: 0.3 mcg/kg/hr, 6.59 mls/hr Documented by: Norepinephrine Bitartrate (Norepinephr-0.9% Nacl 4 Mg/250) 4 mg in 250 mls @ 7.5 mls/hr IV TITRATE [place]; Protocol Melatonin (Melatonin 3 Mg Tab) 6 mg PO BEDTIME PRN PRN Reason: Insomnia Last Admin: 09/08/21 21:38 Dose: 6 mg Documented by: Ondansetron HCl (Ondansetron 4 Mg/2 Ml Sdv) 4 mg IVPUSH Q4H PRN PRN Reason: Nausea/Vomiting Pantoprazole Sodium (Pantoprazole 40 Mg Tab.Cr) 40 mg PO DAILY [place] Last Admin: 09/13/21 09:00 Dose: 40 mg Documented by: Zinc 50 Mg Tab 1 each PO DAILY [facility] Last Admin: 09/12/21 11:45 Dose: 1 each Documented by: Gamma-Aminobutyric Acid (Jaxon) 750mg Tab 1 each PO DAILY [facility] Last Admin: 09/12/21 11:54 Dose: 1 each Documented by: Pyridoxine HCl (Vitamin B6-Pyridoxine 50 Mg Tab) 100 mg PO BEDTIME [facility] Last Admin: 09/12/21 20:58 Dose: 100 mg Documented by: Sodium Chloride (Sodium Chloride 0.9% 10 Ml Syringe) 10 ml FLUSH ASDIRECTED PRN PRN Reason: Keep Vein Open Last Admin: 09/03/21 18:01 Dose: 10 ml Documented by: Sodium Chloride (Sodium Chloride 0.9% 2.5 Ml Syringe) 2.5 ml FLUSH ASDIRECTED PRN PRN Reason: Keep Vein Open Last Admin: 09/03/21 18:00 Dose: 2.5 ml Documented by: Natasha Epstein (Natasha Epstein Medicated Pads 40/Jar) 1 pad TOP ASDIRECTED PRN PRN Reason: Hemorrhoids Last Admin: 09/11/21 21:44 Dose: 1 bandage Documented by: Discontinued Medications Albuterol/Ipratropium (Albuterol/Ipratropium 3.0-0.5 Mg/3 Ml Neb Soln) 3 ml NEB Q4HRRT PRN PRN Reason: Shortness Of Breath/wheezing Last Admin: 09/12/21 08:32 Dose: 3 ml Documented by: Albuterol/Ipratropium (Albuterol/Ipratropium 4 Gm Inhalation [place]) 0 gm INH Q4H [facility] Last Admin: 09/12/21 16:16 Dose: Not Given Documented by: Dexamethasone (Dexamethasone 10 Mg/Ml Sdv) 6 mg IVPUSH ONETIME ONE Stop: 09/03/21 17:43 Last Admin: 09/03/21 18:01 Dose: 6 mg Documented by: Enoxaparin Sodium (Enoxaparin 40 Mg/0.4 Ml Syringe) 40 mg SUBCUT Q24H [facility] Last Admin: 09/10/21 21:41 Dose: Not Given Documented by: Fluoxetine HCl (Fluoxetine 20 Mg Cap) 20 mg PO BID [facility] Stop: 09/25/21 09:01 Heparin Sodium (Porcine) (Heparin Sodium 5,000 Units/Ml Vial) 7,000 units IVPUSH ONETIME ONE Stop: 09/10/21 15:01 Last Admin: 09/10/21 15:12 Dose: 7,000 units Documented by: Heparin Sodium (Porcine) (Heparin Sodium 5,000 Units/Ml Vial) 1,500 units IVPUSH ONETIME ONE Stop: 09/11/21 02:52 Last Admin: 09/11/21 03:00 Dose: 1,500 units Documented by: Heparin Sodium (Porcine) (Heparin Sodium 5,000 Units/Ml Vial) 0 units IVPUSH .BOLUS ONE Stop: 09/11/21 10:01 Last Admin: 09/11/21 10:36 Dose: 1,500 units Documented by: Lactated Ringer's (Ringers, Lactated) 1,000 mls @ 999 mls/hr IV ASDIRECTED [facility] Last Admin: 09/03/21 18:00 Dose: 999 mls/hr Documented by: Remdesivir 200 mg/ Sodium (Chloride) 250 mls @ 250 mls/hr IV ONETIME ONE Stop: 09/03/21 20:44 Last Admin: 09/03/21 21:34 Dose: 250 mls/hr Documented by: Remdesivir 100 mg/ Sodium (Chloride) 100 mls @ 100 mls/hr IV Q24H [facility] Stop: 09/07/21 22:44 Last Admin: 09/07/21 21:10 Dose: 100 mls/hr Documented by: Pantoprazole Sodium 40 mg/ (Sodium Chloride) 10 mls @ 300 mls/hr IV Q24H [facility] Last Admin: 09/06/21 08:06 Dose: 300 mls/hr Documented by: Tocilizumab 750 mg/ Sodium (Chloride) 137.5 mls @ 137.5 mls/hr IV ONETIME ONE Stop: 09/04/21 13:31 Last Admin: 09/04/21 14:14 Dose: 137.5 mls/hr Documented by: Iopamidol (Iopamidol 755 Mg/Ml 500 Ml Multipack Bottle) 100 ml IVPUSH ONETIME [facility]A Stop: 09/03/21 18:53 Last Admin: 09/03/21 18:52 Dose: 100 ml Documented by: Iopamidol (Iopamidol 755 Mg/Ml 500 Ml Multipack Bottle) 75 ml IVPUSH ONETIME STA Stop: 09/10/21 16:19 Last Admin: 09/10/21 16:19 Dose: 75 ml Documented by: Lidocaine (Lidocaine 2% 5 Ml Sdv) Confirm Administered Dose 5 ml .ROUTE .STK-MED ONE Stop: 09/12/21 11:20 Lorazepam (Lorazepam 2 Mg/Ml Sdv) 1 mg IVPUSH ONETIME PRN PRN Reason: Anxiety Last Admin: 09/09/21 22:29 Dose: 1 mg Documented by: Potassium Chloride (Potassium Chloride 20 Meq Tab.Er) 40 meq PO ONETIME ONE Stop: 09/09/21 10:16 Last Admin: 09/09/21 10:40 Dose: 40 meq Documented by: Potassium Chloride (Potassium Chloride 10% 20 Meq/15 Ml Soln 30 Ml Ud Cup) 40 meq PO ONETIME ONE Stop: 09/11/21 06:12 Last Admin: 09/11/21 06:26 Dose: Not Given Documented by: Potassium Chloride (Potassium Chloride 20 Meq Tab.Er) 40 meq PO ONETIME ONE Stop: 09/11/21 06:26 Last Admin: 09/11/21 06:30 Dose: 40 meq Documented by: - Exam Central Line Total Time: 0Days 19Hours Urinary Catheter Total Time: 0Days 17Hours General: Alert, Oriented Neck: Supple Lungs: Clear to Auscultation, Normal Respiratory Effort Cardiovascular: Regular Rate, Regular Rhythm GI/Abdominal Exam: Normal Bowel Sounds, Soft, Non-Tender Extremities: Non-Tender, No Pedal Edema Skin: Warm, Dry, Intact Neurological: No New Focal Deficit - Patient Data Lab Results Last 24 hrs: Laboratory Results - last 24 hr 09/12/21 09/12/21 09/12/21 Range/Units 11:48 13:10 16:50 WBC (4.0-11.0) K/uL RBC (4.30-5.90) M/uL Hgb (12.0-16.0) g/dL Hct (36.0-46.0) % MCV (80.0-98.0) fL MCH (27.0-32.0) pg MCHC (31.0-37.0) g/dL RDW Std Deviation (28.0-62.0) fl RDW Coeff of Kwasi (11.0-15.0) % Plt Count (150-400) K/uL MPV (7.40-12.00) fL Neut % (Auto) (48.0-80.0) % Lymph % (Auto) (16.0-40.0) % Burt % (Auto) (0.0-15.0) % Eos % (Auto) (0.0-7.0) % Baso % (Auto) (0.0-1.5) % Neut # (Auto) (1.4-5.7) K/uL Lymph # (Auto) (0.6-2.4) K/uL Burt # (Auto) (0.0-0.8) K/uL Eos # (Auto) (0.0-0.7) K/uL Baso # (Auto) (0.0-0.1) K/uL Nucleated RBC % /100WBC Nucleated RBCs # K/uL APTT 49.2 H 48.3 H (18.6-31.3) SEC ABG pH 7.42 (7.35-7.45) ABG pCO2 40 (35-45) mmHG ABG pO2 75 L (80-105) mmHG ABG HCO3 26 (22-26) mEq/L ABG Total CO2 23.4 (23-27) mmol/L ABG Base Excess 1.0 (-2.0-3.0) Sodium (136-145) mmol/L Potassium (3.5-5.1) mmol/L Chloride (98-107) mmol/L Carbon Dioxide (21.0-32.0) mmol/L BUN (7.0-18.0) mg/dL Creatinine (0.6-1.0) mg/dL Est Cr Clr Drug Dosing mL/min Estimated GFR (MDRD) ml/min Glucose (74-106) mg/dL Calcium (8.5-10.1) mg/dL Total Bilirubin (0.2-1.0) mg/dL AST (15-37) IU/L ALT (14-63) IU/L Alkaline Phosphatase (46-116) U/L Total Protein (6.4-8.2) g/dL Albumin (3.4-5.0) g/dL Globulin (2.6-4.0) g/dL Albumin/Globulin Ratio (0.9-1.6) 11/10/21 11/10/21 11/11/21 Range/Units 18:00 22:15 00:00 WBC (4.0-11.0) K/uL RBC (4.30-5.90) M/uL Hgb (12.0-16.0) g/dL Hct (36.0-46.0) % MCV (80.0-98.0) fL MCH (27.0-32.0) pg MCHC (31.0-37.0) g/dL RDW Std Deviation (28.0-62.0) fl RDW Coeff of Kwasi (11.0-15.0) % Plt Count (150-400) K/uL MPV (7.40-12.00) fL Neut % (Auto) (48.0-80.0) % Lymph % (Auto) (16.0-40.0) % Burt % (Auto) (0.0-15.0) % Eos % (Auto) (0.0-7.0) % Baso % (Auto) (0.0-1.5) % Neut # (Auto) (1.4-5.7) K/uL Lymph # (Auto) (0.6-2.4) K/uL Burt # (Auto) (0.0-0.8) K/uL Eos # (Auto) (0.0-0.7) K/uL Baso # (Auto) (0.0-0.1) K/uL Nucleated RBC % /100WBC Nucleated RBCs # K/uL APTT 57.6 H (18.6-31.3) SEC ABG pH 7.46 H 7.39 (7.35-7.45) ABG pCO2 33 L 43 (35-45) mmHG ABG pO2 62 L 82 (80-105) mmHG ABG HCO3 24 26 (22-26) mEq/L ABG Total CO2 25 27 (23-27) mmol/L ABG Base Excess 1.0 1.0 (-2.0-3.0) Sodium (136-145) mmol/L Potassium (3.5-5.1) mmol/L Chloride (98-107) mmol/L Carbon Dioxide (21.0-32.0) mmol/L BUN (7.0-18.0) mg/dL Creatinine (0.6-1.0) mg/dL Est Cr Clr Drug Dosing mL/min Estimated GFR (MDRD) ml/min Glucose (74-106) mg/dL Calcium (8.5-10.1) mg/dL Total Bilirubin (0.2-1.0) mg/dL AST (15-37) IU/L ALT (14-63) IU/L Alkaline Phosphatase (46-116) U/L Total Protein (6.4-8.2) g/dL Albumin (3.4-5.0) g/dL Globulin (2.6-4.0) g/dL Albumin/Globulin Ratio (0.9-1.6) 09/13/21 09/13/21 09/13/21 Range/Units 06:36 06:36 06:36 WBC 10.20 (4.0-11.0) K/uL RBC 4.05 L (4.30-5.90) M/uL Hgb 11.2 L (12.0-16.0) g/dL Hct 33.9 L (36.0-46.0) % MCV 83.7 (80.0-98.0) fL MCH 27.7 (27.0-32.0) pg MCHC 33.0 (31.0-37.0) g/dL RDW Std Deviation 40.9 (28.0-62.0) fl RDW Coeff of Kwasi 14 (11.0-15.0) % Plt Count 351 (150-400) K/uL MPV 10.20 (7.40-12.00) fL Neut % (Auto) 82.1 H (48.0-80.0) % Lymph % (Auto) 10.8 L (16.0-40.0) % Burt % (Auto) 6.6 (0.0-15.0) % Eos % (Auto) 0.4 (0.0-7.0) % Baso % (Auto) 0.1 (0.0-1.5) % Neut # (Auto) 8.4 H (1.4-5.7) K/uL Lymph # (Auto) 1.1 (0.6-2.4) K/uL Burt # (Auto) 0.7 (0.0-0.8) K/uL Eos # (Auto) 0.0 (0.0-0.7) K/uL Baso # (Auto) 0.0 (0.0-0.1) K/uL Nucleated RBC % 0.0 /100WBC Nucleated RBCs # 0 K/uL APTT 69.7 H (18.6-31.3) SEC ABG pH (7.35-7.45) ABG pCO2 (35-45) mmHG ABG pO2 (80-105) mmHG ABG HCO3 (22-26) mEq/L ABG Total CO2 (23-27) mmol/L ABG Base Excess (-2.0-3.0) Sodium 140 (136-145) mmol/L Potassium 4.0 (3.5-5.1) mmol/L Chloride 104 (98-107) mmol/L Carbon Dioxide 24.0 (21.0-32.0) mmol/L BUN 10 (7.0-18.0) mg/dL Creatinine 0.6 (0.6-1.0) mg/dL Est Cr Clr Drug Dosing 134.91 mL/min Estimated GFR (MDRD) > 60.0 ml/min Glucose 107 H (74-106) mg/dL Calcium 8.5 (8.5-10.1) mg/dL Total Bilirubin 0.4 (0.2-1.0) mg/dL AST 26 (15-37) IU/L ALT 23 (14-63) IU/L Alkaline Phosphatase 173 H (46-116) U/L Total Protein 6.2 L (6.4-8.2) g/dL Albumin 2.5 L (3.4-5.0) g/dL Globulin 3.7 (2.6-4.0) g/dL Albumin/Globulin Ratio 0.7 L (0.9-1.6) 09/13/21 Range/Units 06:42 WBC (4.0-11.0) K/uL RBC (4.30-5.90) M/uL Hgb (12.0-16.0) g/dL Hct (36.0-46.0) % MCV (80.0-98.0) fL MCH (27.0-32.0) pg MCHC (31.0-37.0) g/dL RDW Std Deviation (28.0-62.0) fl RDW Coeff of Kwasi (11.0-15.0) % Plt Count (150-400) K/uL MPV (7.40-12.00) fL Neut % (Auto) (48.0-80.0) % Lymph % (Auto) (16.0-40.0) % Burt % (Auto) (0.0-15.0) % Eos % (Auto) (0.0-7.0) % Baso % (Auto) (0.0-1.5) % Neut # (Auto) (1.4-5.7) K/uL Lymph # (Auto) (0.6-2.4) K/uL Burt # (Auto) (0.0-0.8) K/uL Eos # (Auto) (0.0-0.7) K/uL Baso # (Auto) (0.0-0.1) K/uL Nucleated RBC % /100WBC Nucleated RBCs # K/uL APTT (18.6-31.3) SEC ABG pH 7.44 (7.35-7.45) ABG pCO2 38 (35-45) mmHG ABG pO2 66 L (80-105) mmHG ABG HCO3 26 (22-26) mEq/L ABG Total CO2 23.8 (23-27) mmol/L ABG Base Excess 1.9 (-2.0-3.0) Sodium (136-145) mmol/L Potassium (3.5-5.1) mmol/L Chloride (98-107) mmol/L Carbon Dioxide (21.0-32.0) mmol/L BUN (7.0-18.0) mg/dL Creatinine (0.6-1.0) mg/dL Est Cr Clr Drug Dosing mL/min Estimated GFR (MDRD) ml/min Glucose (74-106) mg/dL Calcium (8.5-10.1) mg/dL Total Bilirubin (0.2-1.0) mg/dL AST (15-37) IU/L ALT (14-63) IU/L Alkaline Phosphatase (46-116) U/L Total Protein (6.4-8.2) g/dL Albumin (3.4-5.0) g/dL Globulin (2.6-4.0) g/dL Albumin/Globulin Ratio (0.9-1.6) Result Diagrams: 09/13/21 06:36 09/13/21 06:36 Sepsis Event Note - Evaluation Sepsis Screening Result: No Definite Risk - Focused Exam Vital Signs: Vital Signs Temp Resp BP BP Pulse Ox 09/13/21 09:00 28 H 122/69 149/73 H 89 L 09/13/21 08:00 36.3 C 26 H 135/67 153/79 H 91 L 09/13/21 07:00 34 H 126/69 133/59 L 90 L 09/13/21 06:00 36 H 133/65 135/60 90 L 09/13/21 05:00 23 H 137/79 137/89 92 L 09/13/21 04:00 36.1 C 27 H 137/71 145/74 H 94 L 09/13/21 03:00 28 H 132/73 146/79 H 92 L 09/13/21 02:00 34 H 136/76 124/67 86 L 09/13/21 01:00 29 H 155/83 H 142/77 H 94 L 09/13/21 00:00 36.1 C 26 H 140/76 122/69 94 L - Problem List & Annotations (1) COVID-19 SNOMED Code(s): 210993840 Code(s): U07.1 - COVID-19 Status: Acute Current Visit: Yes (2) Hypoxia SNOMED Code(s): 819018547 Code(s): R09.02 - HYPOXEMIA Status: Acute Current Visit: Yes - Problem List Review Problem List Initiated/Reviewed/Updated: Yes - My Orders Last 24 Hours: My Active Orders 09/12/21 12:00 Arterial Line Insertion [OM.PC] Urgent 09/12/21 14:00 Albuterol/Ipratropium [Combivent Respimat] See Dose Instructions INH Q4HRRT PRN Albuterol/Ipratropium [DuoNeb 3.0-0.5 MG/3 ML] 3 ml NEB Q4HRRT Central Venous Line Insertion [OM.PC] Routine 09/12/21 17:37 Central Line Assessment [RC] Q4H 09/12/21 17:39 Arterial Line Assessment [RC] Q4H 09/13/21 12:00 aPTT [PTT,PARTIAL THROMBOPLSTIN TIME] [COAG] Q6H 09/13/21 18:00 aPTT [PTT,PARTIAL THROMBOPLSTIN TIME] [COAG] Q6H 09/14/21 00:00 aPTT [PTT,PARTIAL THROMBOPLSTIN TIME] [COAG] Q6H 09/14/21 05:11 CBC WITH AUTO DIFF [HEME] AM COMPREHENSIVE METABOLIC PN,CMP [CHEM] AM 09/14/21 06:00 aPTT [PTT,PARTIAL THROMBOPLSTIN TIME] [COAG] Q6H - Plan Plan:: 25-year-old female admitted for acute hypoxic respiratory failure secondary to Covid pneumonia acute hypoxic respiratory failure: on BIPAP and Precedex. She did have some improvement last night so transfer to [place] was canceled. [facility] did not believe there would be any benefit in transfer as treatment would be the same. COVID: on dexamethasone, finished remdesivir. PE: on heparin drip Possible Post depression: Dr. Turpin has been consulted
[2021-09-13] MEDS: Witch Hazel Medicated Pads 40/Jar TOP PRN (14:02)
[2021-09-13] MEDS ORDERED: Docusate Sodium 100 MG Cap PO PRN (14:09)
[2021-09-13] MEDS: Vitamin B6-pyridOXINE 50 MG Tab PO SCH (20:00)
[2021-09-14] MEDS: Albuterol/Ipratropium 3.0-0.5 MG/3 ML Neb Soln NEB SCH ×5 (01:44→20:07)
[2021-09-14] MEDS ORDERED: fentaNYL 100 MCG/2 ML SDV IVPUSH ONE ×2 (03:59→17:45)
--- NOTE | 2021-09-14 04:46 | CR ---
HISTORY: Back pain. COVID-19 pneumonia. Follow up infiltrate. COMPARISON: 09/12/2021 FINDINGS: A portable erect AP view of the chest was obtained at 0418 hours. Again seen is a right internal jugular central line with its tip in satisfactory position in the superior vena cava. There is no sign of pneumothorax on the right. There is no change in moderate diffuse ground-glass infiltrate throughout the lungs with relative sparing of the apices, consistent with prominent COVID-19 pneumonia. There is no sign of a pleural effusion. The heart remains normal in size. The mediastinum is normal in appearance. The osseous structures are normal in appearance for the patient`s age. IMPRESSION: Stable moderate bilateral ground-glass infiltrates consistent with moderate COVID-19 pneumonia. Dictated by Korey Haines MD @ 09/14/2021 4:45:40 AM (Electronically Signed)
[2021-09-14] MEDS ORDERED: Baclofen 10 MG Tab PO ONE (04:50)
--- NOTE | 2021-09-14 04:55 | PN ---
THC Physician - Brief Progress [id number]/12/2021 04:51[facility] Martín Onofre, [place] - [place] - [place] COVID+Date of Service 09/14/2021 04:51HP I/Events of Note Called for upper back pain, cramping in nature feels like "muscle spasm".On camera, the patient is in NAD on BIPAP.Plan:Ordered CxR to eval and r/o PTx. Official read pending but I do n ot see any significant PTx. b/l infiltrates similar to 09/12, possibly minimally imrpoved aeration.Fe ntanyl 25 mcg IVP x1 given without improvemenet.Ordered Baclofen 10 mg po x1.Interventions Intermedia te-Pain - evaluation and management
[2021-09-14] MEDS ORDERED: HYDROmorphone 1 MG/ML Syringe IVPUSH ONE (05:29)
--- NOTE | 2021-09-14 06:55 | PN ---
THC Physician - Brief Progress [id number]/12/2021 06:18[facility] Martín Onofre, [place] - [place] - [place] COVID+Date of Service 09/14/2021 06:18HP I/Events of Note AM ABG reviewed. Mixed respiratory and metabolic acidosis, bicarb has decreased from 30 to 20.Is maxed on vent (overbreathing RR 40).Plan:Bicarb 2 amps IVP x1 now.f/up ABG in 2 hours an d discuss w nephrology whether SLED or HD will be started.Otherwise will need bicarb gtt.Intervention s Jifhl-Fqrw-Trot disturbance - evaluation and management
[2021-09-14 07:31] LABS: BLOOD UREA NITROGEN,BUN 13 mg/dL (7.0-18.0); CARBON DIOXIDE,CO2 24.2 mmol/L (21.0-32.0); CHLORIDE,CL 103 mmol/L (98-107); GLUCOSE RANDOM 91 mg/dL (74-106); POTASSIUM,K 3.7 mmol/L (3.5-5.1); SODIUM,NA 139 mmol/L (136-145)
[2021-09-14] MEDS: Morphine 2 MG/ML SYRINGE IVPUSH PRN ×2 (08:40→11:56)
--- NOTE | 2021-09-14 10:04 | CT ---
Indication: Abdominal pain, known UTI Technique: Volumetric multidetector CT images of the abdomen and pelvis were obtained after the administration of intravenous contrast. 100 cc Isovue 370 low osmolar intravenous contrast Comparison: None available. Findings: There are extensive interstitial, ground-glass and airspace opacities within the lung bases commensurate with multifocal infiltrates. The liver is normal in attenuation without intrahepatic biliary ductal dilatation. The portal vein is patent. The gallbladder is unremarkable without evidence of radiopaque calculus. There is no significant common biliary ductal dilatation or abrupt cut off. The spleen is normal in enhancement and size. The stomach and duodenum are grossly unremarkable. The pancreas is normal in enhancement without significant atrophy. The adrenal glands are unremarkable. The kidneys demonstrate preserved corticomedullary differentiation without evidence of obstructive uropathy. There is a Marrufo catheter within the bladder lumen with mild nonspecific bladder wall thickening versus nondistention. There is no evidence of filling defect within the collecting system. There is moderate stool seen throughout the colon with distal colonic diverticulosis without definite evidence of diverticulitis. The appendix is unremarkable. There is no significant mesenteric, retroperitoneal, or pelvic sidewall lymph nodes. The aorta is nonaneurysmal. There is no significant atherosclerotic disease appreciated. The solid pelvic viscera are grossly unremarkable. There is no free air free fluid. There is demonstration of mild fat containing umbilical hernia and diastasis of the rectus musculature. The lumbar vertebral body heights are grossly maintained without acute osseous abnormality. Impression: Extensive interstitial, ground-glass and airspace opacities of the bilateral lung bases commensurate with likely multifocal infiltrate such as can be seen in saavedra virus pneumonia. Correlate with history of clinical testing. Mild nonspecific thickening of the bladder lumen which may represent nondistention with demonstration of a Marrufo catheter in satisfactory position. Otherwise, unremarkable bilateral kidneys. There is a decompressed appearing colon with minimal distal colonic diverticulosis. No definite evidence of diverticulitis. Please note that all CT scans at this facility use dose modulation, iterative reconstruction, and/or weight-based dosing when appropriate to reduce radiation dose to as low as reasonably achievable. Dictated by Lb Raygoza MD @ 09/14/2021 10:03:26 AM (Electronically Signed)
[2021-09-14] MEDS ORDERED: Iopamidol 755 MG/ML 500 ML Multipack Bottle IVPUSH ONE (10:34)
[2021-09-14] MEDS ORDERED: cefTRIAXone 1 GM in Premix Bag 1 BAG IV SCH (11:00)
--- NOTE | 2021-09-14 11:14 | PCM.PN ---
- General Info Date of Service: 09/14/21 - Review of Systems Systems Review Comment:: reported left sided back pain, - Patient Data Vitals - Most Recent: Last Vital Signs Temp 36.2 C 09/14/21 04:00 Pulse 105 H 09/04/21 07:00 Resp 30 H 09/14/21 06:00 BP 106/61 09/14/21 06:00 Pulse Ox 90 L 09/14/21 06:00 Weight - Most Recent: 87.317 kg I&O - Last 24 Hours: Intake & Output 09/13/21 09/14/21 09/14/21 22:59 06:59 14:59 Intake Total 1769 681 Output Total 1900 975 Balance -131 -294 Lab Results Last 24 Hours: Laboratory Results - last 24 hr 09/13/21 09/13/21 09/13/21 Range/Units 12:00 12:00 18:11 WBC (4.0-11.0) K/uL RBC (4.30-5.90) M/uL Hgb (12.0-16.0) g/dL Hct (36.0-46.0) % MCV (80.0-98.0) fL MCH (27.0-32.0) pg MCHC (31.0-37.0) g/dL RDW Std Deviation (28.0-62.0) fl RDW Coeff of Kwasi (11.0-15.0) % Plt Count (150-400) K/uL MPV (7.40-12.00) fL Neut % (Auto) (48.0-80.0) % Lymph % (Auto) (16.0-40.0) % [place]ink[place] % (Auto) (0.0-15.0) % Eos % (Auto) (0.0-7.0) % Baso % (Auto) (0.0-1.5) % Neut # (Auto) (1.4-5.7) K/uL Lymph # (Auto) (0.6-2.4) K/uL [place]ink[place] # (Auto) (0.0-0.8) K/uL Eos # (Auto) (0.0-0.7) K/uL Baso # (Auto) (0.0-0.1) K/uL Nucleated RBC % /100WBC Nucleated RBCs # K/uL APTT 74.7 H 63.3 H (18.6-31.3) SEC ABG pH 7.44 (7.35-7.45) ABG pCO2 38 (35-45) mmHG ABG pO2 64 L (80-105) mmHG ABG HCO3 26 (22-26) mEq/L ABG Total CO2 27 (23-27) mmol/L ABG Base Excess 2.0 (-2.0-3.0) Sodium (136-145) mmol/L Potassium (3.5-5.1) mmol/L Chloride (98-107) mmol/L Carbon Dioxide (21.0-32.0) mmol/L BUN (7.0-18.0) mg/dL Creatinine (0.6-1.0) mg/dL Est Cr Clr Drug Dosing mL/min Estimated GFR (MDRD) ml/min Glucose (74-106) mg/dL Calcium (8.5-10.1) mg/dL Total Bilirubin (0.2-1.0) mg/dL AST (15-37) IU/L ALT (14-63) IU/L Alkaline Phosphatase (46-116) U/L Total Protein (6.4-8.2) g/dL Albumin (3.4-5.0) g/dL Globulin (2.6-4.0) g/dL Albumin/Globulin Ratio (0.9-1.6) Urine Color Urine Appearance Urine pH (5.0-8.0) Ur Specific [place] (1.001-1.035) Urine Protein (NEGATIVE) mg/dL Urine Glucose (UA) (NEGATIVE) mg/dL Urine Ketones (NEGATIVE) mg/dL Urine Occult Blood (NEGATIVE) Urine Nitrite (NEGATIVE) Urine Bilirubin (NEGATIVE) Urine Urobilinogen (<2.0) EU/dL Ur Leukocyte Esterase (NEGATIVE) Urine RBC (0-2/HPF) Urine WBC (0-5/HPF) Ur Epithelial Cells (NONE-FEW) Urine Bacteria (NEGATIVE) 09/13/21 09/14/21 09/14/21 Range/Units 20:30 00:30 05:45 WBC (4.0-11.0) K/uL RBC (4.30-5.90) M/uL Hgb (12.0-16.0) g/dL Hct (36.0-46.0) % MCV (80.0-98.0) fL MCH (27.0-32.0) pg MCHC (31.0-37.0) g/dL RDW Std Deviation (28.0-62.0) fl RDW Coeff of Kwasi (11.0-15.0) % Plt Count (150-400) K/uL MPV (7.40-12.00) fL Neut % (Auto) (48.0-80.0) % Lymph % (Auto) (16.0-40.0) % [place]ink[place] % (Auto) (0.0-15.0) % Eos % (Auto) (0.0-7.0) % Baso % (Auto) (0.0-1.5) % Neut # (Auto) (1.4-5.7) K/uL Lymph # (Auto) (0.6-2.4) K/uL [place]ink[place] # (Auto) (0.0-0.8) K/uL Eos # (Auto) (0.0-0.7) K/uL Baso # (Auto) (0.0-0.1) K/uL Nucleated RBC % /100WBC Nucleated RBCs # K/uL APTT 63.9 H (18.6-31.3) SEC ABG pH 7.43 (7.35-7.45) ABG pCO2 38 (35-45) mmHG ABG pO2 77 L (80-105) mmHG ABG HCO3 26 (22-26) mEq/L ABG Total CO2 27 (23-27) mmol/L ABG Base Excess 1.0 (-2.0-3.0) Sodium (136-145) mmol/L Potassium (3.5-5.1) mmol/L Chloride (98-107) mmol/L Carbon Dioxide (21.0-32.0) mmol/L BUN (7.0-18.0) mg/dL Creatinine (0.6-1.0) mg/dL Est Cr Clr Drug Dosing mL/min Estimated GFR (MDRD) ml/min Glucose (74-106) mg/dL Calcium (8.5-10.1) mg/dL Total Bilirubin (0.2-1.0) mg/dL AST (15-37) IU/L ALT (14-63) IU/L Alkaline Phosphatase (46-116) U/L Total Protein (6.4-8.2) g/dL Albumin (3.4-5.0) g/dL Globulin (2.6-4.0) g/dL Albumin/Globulin Ratio (0.9-1.6) Urine Color YELLOW Urine Appearance CLOUDY Urine pH 7.0 (5.0-8.0) Ur Specific [place] 1.020 (1.001-1.035) Urine Protein TRACE H (NEGATIVE) mg/dL Urine Glucose (UA) NEGATIVE (NEGATIVE) mg/dL Urine Ketones NEGATIVE (NEGATIVE) mg/dL Urine Occult Blood LARGE H (NEGATIVE) Urine Nitrite POSITIVE H (NEGATIVE) Urine Bilirubin NEGATIVE (NEGATIVE) Urine Urobilinogen 0.2 (<2.0) EU/dL Ur Leukocyte Esterase LARGE H (NEGATIVE) Urine RBC 35-40 (0-2/HPF) Urine WBC 100-110 (0-5/HPF) Ur Epithelial Cells RARE (NONE-FEW) Urine Bacteria 2+ H (NEGATIVE) 09/14/21 09/14/21 09/14/21 Range/Units 05:58 05:58 05:58 WBC 16.80 H (4.0-11.0) K/uL RBC 4.14 L (4.30-5.90) M/uL Hgb 11.3 L (12.0-16.0) g/dL Hct 35.1 L (36.0-46.0) % MCV 84.8 (80.0-98.0) fL MCH 27.3 (27.0-32.0) pg MCHC 32.2 (31.0-37.0) g/dL RDW Std Deviation 41.4 (28.0-62.0) fl RDW Coeff of Kwasi 14 (11.0-15.0) % Plt Count 365 (150-400) K/uL MPV 10.30 (7.40-12.00) fL Neut % (Auto) 80.7 H (48.0-80.0) % Lymph % (Auto) 11.4 L (16.0-40.0) % Wink[place] % (Auto) 7.1 (0.0-15.0) % Eos % (Auto) 0.7 (0.0-7.0) % Baso % (Auto) 0.1 (0.0-1.5) % Neut # (Auto) 13.6 H (1.4-5.7) K/uL Lymph # (Auto) 1.9 (0.6-2.4) K/uL [place] # (Auto) 1.2 H (0.0-0.8) K/uL Eos # (Auto) 0.1 (0.0-0.7) K/uL Baso # (Auto) 0.0 (0.0-0.1) K/uL Nucleated RBC % 0.0 /100WBC Nucleated RBCs # 0 K/uL APTT 63.7 H (18.6-31.3) SEC ABG pH (7.35-7.45) ABG pCO2 (35-45) mmHG ABG pO2 (80-105) mmHG ABG HCO3 (22-26) mEq/L ABG Total CO2 (23-27) mmol/L ABG Base Excess (-2.0-3.0) Sodium 139 (136-145) mmol/L Potassium 3.7 (3.5-5.1) mmol/L Chloride 103 (98-107) mmol/L Carbon Dioxide 24.2 (21.0-32.0) mmol/L BUN 13 (7.0-18.0) mg/dL Creatinine 0.6 (0.6-1.0) mg/dL Est Cr Clr Drug Dosing 134.91 mL/min Estimated GFR (MDRD) > 60.0 ml/min Glucose 91 (74-106) mg/dL Calcium 8.4 L (8.5-10.1) mg/dL Total Bilirubin 0.4 (0.2-1.0) mg/dL AST 28 (15-37) IU/L ALT 26 (14-63) IU/L Alkaline Phosphatase 154 H (46-116) U/L Total Protein 6.2 L (6.4-8.2) g/dL Albumin 2.6 L (3.4-5.0) g/dL Globulin 3.6 (2.6-4.0) g/dL Albumin/Globulin Ratio 0.7 L (0.9-1.6) Urine Color Urine Appearance Urine pH (5.0-8.0) Ur Specific [place] (1.001-1.035) Urine Protein (NEGATIVE) mg/dL Urine Glucose (UA) (NEGATIVE) mg/dL Urine Ketones (NEGATIVE) mg/dL Urine Occult Blood (NEGATIVE) Urine Nitrite (NEGATIVE) Urine Bilirubin (NEGATIVE) Urine Urobilinogen (<2.0) EU/dL Ur Leukocyte Esterase (NEGATIVE) Urine RBC (0-2/HPF) Urine WBC (0-5/HPF) Ur Epithelial Cells (NONE-FEW) Urine Bacteria (NEGATIVE) Med Orders - Current: Current Medications Acetaminophen (Acetaminophen 325 Mg Tab) 650 mg PO Q6H PRN PRN Reason: Pain (Mild 1-3)/fever Last Admin: 09/04/21 12:33 Dose: 650 mg Documented by: Albuterol/Ipratropium (Albuterol/Ipratropium 3.0-0.5 Mg/3 Ml Neb Soln) 3 ml NEB Q4HRRT COUNTS INCLUDE 234 BEDS AT THE [facility] Last Admin: 09/14/21 05:09 Dose: 3 ml Documented by: Albuterol/Ipratropium (Albuterol/Ipratropium 4 Gm Inhalation [place]) 0 gm INH Q4HRRT PRN PRN Reason: Dyspnea Ascorbic Acid (Ascorbic Acid 500 Mg Tab) 1,000 mg PO DAILY COUNTS INCLUDE 234 BEDS AT THE [facility] Last Admin: 09/13/21 09:00 Dose: 1,000 mg Documented by: Cholecalciferol (Cholecalciferol (Vitamin D3) 25 Mcg Tab) 50 mcg PO DAILY COUNTS INCLUDE 234 BEDS AT THE [facility] Last Admin: 09/13/21 09:01 Dose: 50 mcg Documented by: Cyanocobalamin (Cyanocobalamin (Vitamin B12) 500 Mcg Tab) 1,000 mcg PO DAILY COUNTS INCLUDE 234 BEDS AT THE [facility] Last Admin: 09/13/21 09:00 Dose: 1,000 mcg Documented by: Dexamethasone (Dexamethasone 4 Mg Tab) 6 mg PO DAILY COUNTS INCLUDE 234 BEDS AT THE [facility] Last Admin: 09/13/21 09:00 Dose: 6 mg Documented by: Docusate Sodium (Docusate Sodium 100 Mg Cap) 100 mg PO DAILY PRN PRN Reason: Constipation Fluoxetine HCl (Fluoxetine 20 Mg Cap) 20 mg PO BID COUNTS INCLUDE 234 BEDS AT THE [facility] Stop: 09/25/21 09:01 Last Admin: 09/13/21 20:00 Dose: 20 mg Documented by: Guaifenesin/Dextromethorphan (Guaifenesin/Dextromethorphan 100-10 Mg/5 Ml Soln 10 Ml Cup) 10 ml PO Q6H PRN PRN Reason: Cough Last Admin: 09/10/21 03:33 Dose: 10 ml Documented by: Heparin Sodium/Sodium Chloride (Heparin 25,000 Units In 1/2 Ns 500 Ml) 500 mls @ 26.263 mls/hr IV TITRATE [place]; Protocol Last Admin: 09/13/21 20:01 Dose: 15 units/kg/hr, 26.263 mls/hr Documented by: Dexmedetomidine/Sodium (Chloride 400 mcg/ Premix) 100 mls @ 4.393 mls/hr IV TITRATE [place]; Protocol Last Admin: 09/14/21 04:20 Dose: 0.6 mcg/kg/hr, 13.179 mls/hr Documented by: Norepinephrine Bitartrate (Norepinephr-0.9% Nacl 4 Mg/250) 4 mg in 250 mls @ 7.5 mls/hr IV TITRATE [place]; Protocol Ceftriaxone Sodium/Dextrose 1 (gm/ Premix) 50 mls @ 100 mls/hr IV Q24H [place] Melatonin (Melatonin 3 Mg Tab) 6 mg PO BEDTIME PRN PRN Reason: Insomnia Last Admin: 09/08/21 21:38 Dose: 6 mg Documented by: Morphine Sulfate (Morphine 2 Mg/Ml Syringe) 2 mg IVPUSH Q3H PRN PRN Reason: Pain Ondansetron HCl (Ondansetron 4 Mg/2 Ml Sdv) 4 mg IVPUSH Q4H PRN PRN Reason: Nausea/Vomiting Pantoprazole Sodium (Pantoprazole 40 Mg Tab.Cr) 40 mg PO DAILY [place] Last Admin: 09/13/21 09:00 Dose: 40 mg Documented by: Zinc 50 Mg Tab 1 each PO DAILY [place] Last Admin: 09/13/21 09:00 Dose: 1 each Documented by: Gamma-Aminobutyric Acid (Jaxon) 750mg Tab 1 each PO DAILY [place] Last Admin: 09/13/21 09:30 Dose: 1 each Documented by: Pyridoxine HCl (Vitamin B6-Pyridoxine 50 Mg Tab) 100 mg PO BEDTIME [place] Last Admin: 09/13/21 20:00 Dose: 100 mg Documented by: Sodium Chloride (Sodium Chloride 0.9% 10 Ml Syringe) 10 ml FLUSH ASDIRECTED PRN PRN Reason: Keep Vein Open Last Admin: 09/03/21 18:01 Dose: 10 ml Documented by: Sodium Chloride (Sodium Chloride 0.9% 2.5 Ml Syringe) 2.5 ml FLUSH ASDIRECTED PRN PRN Reason: Keep Vein Open Last Admin: 09/03/21 18:00 Dose: 2.5 ml Documented by: Natasha Epstein (Natasha Epstein Medicated Pads 40/Jar) 1 pad TOP ASDIRECTED PRN PRN Reason: Hemorrhoids Last Admin: 09/13/21 14:02 Dose: 1 bandage Documented by: Discontinued Medications Albuterol/Ipratropium (Albuterol/Ipratropium 3.0-0.5 Mg/3 Ml Neb Soln) 3 ml NEB Q4HRRT PRN PRN Reason: Shortness Of Breath/wheezing Last Admin: 09/12/21 08:32 Dose: 3 ml Documented by: Albuterol/Ipratropium (Albuterol/Ipratropium 4 Gm Inhalation [place]) 0 gm INH Q4H [place] Last Admin: 09/12/21 16:16 Dose: Not Given Documented by: Baclofen (Baclofen 10 Mg Tab) 10 mg PO ONETIME ONE Stop: 09/14/21 04:51 Last Admin: 09/14/21 05:09 Dose: 10 mg Documented by: Dexamethasone (Dexamethasone 10 Mg/Ml Sdv) 6 mg IVPUSH ONETIME ONE Stop: 09/03/21 17:43 Last Admin: 09/03/21 18:01 Dose: 6 mg Documented by: Enoxaparin Sodium (Enoxaparin 40 Mg/0.4 Ml Syringe) 40 mg SUBCUT Q24H COUNTS INCLUDE 234 BEDS AT THE [facility] Last Admin: 09/10/21 21:41 Dose: Not Given Documented by: Fentanyl (Fentanyl 100 Mcg/2 Ml Sdv) 25 mcg IVPUSH ONETIME ONE Stop: 09/14/21 04:00 Last Admin: 09/14/21 04:08 Dose: 25 mcg Documented by: Fluoxetine HCl (Fluoxetine 20 Mg Cap) 20 mg PO BID [place] Stop: 09/25/21 09:01 Heparin Sodium (Porcine) (Heparin Sodium 5,000 Units/Ml Vial) 7,000 units IVPUSH ONETIME ONE Stop: 09/10/21 15:01 Last Admin: 09/10/21 15:12 Dose: 7,000 units Documented by: Heparin Sodium (Porcine) (Heparin Sodium 5,000 Units/Ml Vial) 1,500 units IVP [facility] ONETIME ONE Stop: 09/11/21 02:52 Last Admin: 09/11/21 03:00 Dose: 1,500 units Documented by: Heparin Sodium (Porcine) (Heparin Sodium 5,000 Units/Ml Vial) 0 units IVPUSH .BOLUS ONE Stop: 09/11/21 10:01 Last Admin: 09/11/21 10:36 Dose: 1,500 units Documented by: Hydromorphone HCl (Hydromorphone 1 Mg/Ml Syringe) 0.8 mg IVPUSH ONETIME ONE Stop: 09/14/21 05:30 Last Admin: 09/14/21 05:34 Dose: 0.8 mg Documented by: Lactated Ringer's (Ringers, Lactated) 1,000 mls @ 999 mls/hr IV ASDIRECTED COUNTS INCLUDE 234 BEDS AT THE [facility] Last Admin: 09/03/21 18:00 Dose: 999 mls/hr Documented by: Remdesivir 200 mg/ Sodium (Chloride) 250 mls @ 250 mls/hr IV ONETIME ONE Stop: 09/03/21 20:44 Last Admin: 09/03/21 21:34 Dose: 250 mls/hr Documented by: Remdesivir 100 mg/ Sodium (Chloride) 100 mls @ 100 mls/hr IV Q24H COUNTS INCLUDE 234 BEDS AT THE [facility] Stop: 09/07/21 22:44 Last Admin: 09/07/21 21:10 Dose: 100 mls/hr Documented by: Pantoprazole Sodium 40 mg/ (Sodium Chloride) 10 mls @ 300 mls/hr IV Q24H COUNTS INCLUDE 234 BEDS AT THE [facility] Last Admin: 09/06/21 08:06 Dose: 300 mls/hr Documented by: Tocilizumab 750 mg/ Sodium (Chloride) 137.5 mls @ 137.5 mls/hr IV ONETIME ONE Stop: 09/04/21 13:31 Last Admin: 09/04/21 14:14 Dose: 137.5 mls/hr Documented by: Iopamidol (Iopamidol 755 Mg/Ml 500 Ml Multipack Bottle) 100 ml IVPUSH ONETIME STA Stop: 09/03/21 18:53 Last Admin: 09/03/21 18:52 Dose: 100 ml Documented by: Iopamidol (Iopamidol 755 Mg/Ml 500 Ml Multipack Bottle) 75 ml IVPUSH ONETIME STA Stop: 09/10/21 16:19 Last Admin: 09/10/21 16:19 Dose: 75 ml Documented by: Iopamidol (Iopamidol 755 Mg/Ml 500 Ml Multipack Bottle) 100 ml IVPUSH ONETIME ONE Stop: 09/14/21 10:35 Last Admin: 09/14/21 10:35 Dose: 100 ml Documented by: Lidocaine (Lidocaine 2% 5 Ml Sdv) Confirm Administered Dose 5 ml .ROUTE .STK-MED ONE Stop: 09/12/21 11:20 Lorazepam (Lorazepam 2 Mg/Ml Sdv) 1 mg IVPUSH ONETIME PRN PRN Reason: Anxiety Last Admin: 09/09/21 22:29 Dose: 1 mg Documented by: Potassium Chloride (Potassium Chloride 20 Meq Tab.Er) 40 meq PO ONETIME ONE Stop: 09/09/21 10:16 Last Admin: 09/09/21 10:40 Dose: 40 meq Documented by: Potassium Chloride (Potassium Chloride 10% 20 Meq/15 Ml Soln 30 Ml Ud Cup) 40 meq PO ONETIME ONE Stop: 09/11/21 06:12 Last Admin: 09/11/21 06:26 Dose: Not Given Documented by: Potassium Chloride (Potassium Chloride 20 Meq Tab.Er) 40 meq PO ONETIME ONE Stop: 09/11/21 06:26 Last Admin: 09/11/21 06:30 Dose: 40 meq Documented by: - Exam Central Line Total Time: 1Days 14Hours Urinary Catheter Total Time: 1Days 10Hours General: Alert, Oriented Lungs: Clear to Auscultation, Normal Respiratory Effort Cardiovascular: Regular Rate, Regular Rhythm, Bradycardia, Tachycardia GI/Abdominal Exam: Soft, Non-Tender, No Distention Back Exam: CVA Tenderness (L) Extremities: Non-Tender, No Pedal Edema Skin: Warm, Dry, Intact Neurological: No New Focal Deficit - Patient Data Lab Results Last 24 hrs: Laboratory Results - last 24 hr 09/13/21 09/13/21 09/13/21 Range/Units 12:00 12:00 18:11 WBC (4.0-11.0) K/uL RBC (4.30-5.90) M/uL Hgb (12.0-16.0) g/dL Hct (36.0-46.0) % MCV (80.0-98.0) fL MCH (27.0-32.0) pg MCHC (31.0-37.0) g/dL RDW Std Deviation (28.0-62.0) fl RDW Coeff of Kwasi (11.0-15.0) % Plt Count (150-400) K/uL MPV (7.40-12.00) fL Neut % (Auto) (48.0-80.0) % Lymph % (Auto) (16.0-40.0) % [place] % (Auto) (0.0-15.0) % Eos % (Auto) (0.0-7.0) % Baso % (Auto) (0.0-1.5) % Neut # (Auto) (1.4-5.7) K/uL Lymph # (Auto) (0.6-2.4) K/uL [place] # (Auto) (0.0-0.8) K/uL Eos # (Auto) (0.0-0.7) K/uL Baso # (Auto) (0.0-0.1) K/uL Nucleated RBC % /100WBC Nucleated RBCs # K/uL APTT 74.7 H 63.3 H (18.6-31.3) SEC ABG pH 7.44 (7.35-7.45) ABG pCO2 38 (35-45) mmHG ABG pO2 64 L (80-105) mmHG ABG HCO3 26 (22-26) mEq/L ABG Total CO2 27 (23-27) mmol/L ABG Base Excess 2.0 (-2.0-3.0) Sodium (136-145) mmol/L Potassium (3.5-5.1) mmol/L Chloride (98-107) mmol/L Carbon Dioxide (21.0-32.0) mmol/L BUN (7.0-18.0) mg/dL Creatinine (0.6-1.0) mg/dL Est Cr Clr Drug Dosing mL/min Estimated GFR (MDRD) ml/min Glucose (74-106) mg/dL Calcium (8.5-10.1) mg/dL Total Bilirubin (0.2-1.0) mg/dL AST (15-37) IU/L ALT (14-63) IU/L Alkaline Phosphatase (46-116) U/L Total Protein (6.4-8.2) g/dL Albumin (3.4-5.0) g/dL Globulin (2.6-4.0) g/dL Albumin/Globulin Ratio (0.9-1.6) Urine Color Urine Appearance Urine pH (5.0-8.0) Ur Specific [place] (1.001-1.035) Urine Protein (NEGATIVE) mg/dL Urine Glucose (UA) (NEGATIVE) mg/dL Urine Ketones (NEGATIVE) mg/dL Urine Occult Blood (NEGATIVE) Urine Nitrite (NEGATIVE) Urine Bilirubin (NEGATIVE) Urine Urobilinogen (<2.0) EU/dL Ur Leukocyte Esterase (NEGATIVE) Urine RBC (0-2/HPF) Urine WBC (0-5/HPF) Ur Epithelial Cells (NONE-FEW) Urine Bacteria (NEGATIVE) 09/13/21 09/14/21 09/14/21 Range/Units 20:30 00:30 05:45 WBC (4.0-11.0) K/uL RBC (4.30-5.90) M/uL Hgb (12.0-16.0) g/dL Hct (36.0-46.0) % MCV (80.0-98.0) fL MCH (27.0-32.0) pg MCHC (31.0-37.0) g/dL RDW Std Deviation (28.0-62.0) fl RDW Coeff of Kwasi (11.0-15.0) % Plt Count (150-400) K/uL MPV (7.40-12.00) fL Neut % (Auto) (48.0-80.0) % Lymph % (Auto) (16.0-40.0) % [place] % (Auto) (0.0-15.0) % Eos % (Auto) (0.0-7.0) % Baso % (Auto) (0.0-1.5) % Neut # (Auto) (1.4-5.7) K/uL Lymph # (Auto) (0.6-2.4) K/uL [place] # (Auto) (0.0-0.8) K/uL Eos # (Auto) (0.0-0.7) K/uL Baso # (Auto) (0.0-0.1) K/uL Nucleated RBC % /100WBC Nucleated RBCs # K/uL APTT 63.9 H (18.6-31.3) SEC ABG pH 7.43 (7.35-7.45) ABG pCO2 38 (35-45) mmHG ABG pO2 77 L (80-105) mmHG ABG HCO3 26 (22-26) mEq/L ABG Total CO2 27 (23-27) mmol/L ABG Base Excess 1.0 (-2.0-3.0) Sodium (136-145) mmol/L Potassium (3.5-5.1) mmol/L Chloride (98-107) mmol/L Carbon Dioxide (21.0-32.0) mmol/L BUN (7.0-18.0) mg/dL Creatinine (0.6-1.0) mg/dL Est Cr Clr Drug Dosing mL/min Estimated GFR (MDRD) ml/min Glucose (74-106) mg/dL Calcium (8.5-10.1) mg/dL Total Bilirubin (0.2-1.0) mg/dL AST (15-37) IU/L ALT (14-63) IU/L Alkaline Phosphatase (46-116) U/L Total Protein (6.4-8.2) g/dL Albumin (3.4-5.0) g/dL Globulin (2.6-4.0) g/dL Albumin/Globulin Ratio (0.9-1.6) Urine Color YELLOW Urine Appearance CLOUDY Urine pH 7.0 (5.0-8.0) Ur Specific [place] 1.020 (1.001-1.035) Urine Protein TRACE H (NEGATIVE) mg/dL Urine Glucose (UA) NEGATIVE (NEGATIVE) mg/dL Urine Ketones NEGATIVE (NEGATIVE) mg/dL Urine Occult Blood LARGE H (NEGATIVE) Urine Nitrite POSITIVE H (NEGATIVE) Urine Bilirubin NEGATIVE (NEGATIVE) Urine Urobilinogen 0.2 (<2.0) EU/dL Ur Leukocyte Esterase LARGE H (NEGATIVE) Urine RBC 35-40 (0-2/HPF) Urine WBC 100-110 (0-5/HPF) Ur Epithelial Cells RARE (NONE-FEW) Urine Bacteria 2+ H (NEGATIVE) 09/14/21 09/14/21 09/14/21 Range/Units 05:58 05:58 05:58 WBC 16.80 H (4.0-11.0) K/uL RBC 4.14 L (4.30-5.90) M/uL Hgb 11.3 L (12.0-16.0) g/dL Hct 35.1 L (36.0-46.0) % MCV 84.8 (80.0-98.0) fL MCH 27.3 (27.0-32.0) pg MCHC 32.2 (31.0-37.0) g/dL RDW Std Deviation 41.4 (28.0-62.0) fl RDW Coeff of Kwasi 14 (11.0-15.0) % Plt Count 365 (150-400) K/uL MPV 10.30 (7.40-12.00) fL Neut % (Auto) 80.7 H (48.0-80.0) % Lymph % (Auto) 11.4 L (16.0-40.0) % [place] % (Auto) 7.1 (0.0-15.0) % Eos % (Auto) 0.7 (0.0-7.0) % Baso % (Auto) 0.1 (0.0-1.5) % Neut # (Auto) 13.6 H (1.4-5.7) K/uL Lymph # (Auto) 1.9 (0.6-2.4) K/uL [place] # (Auto) 1.2 H (0.0-0.8) K/uL Eos # (Auto) 0.1 (0.0-0.7) K/uL Baso # (Auto) 0.0 (0.0-0.1) K/uL Nucleated RBC % 0.0 /100WBC Nucleated RBCs # 0 K/uL APTT 63.7 H (18.6-31.3) SEC ABG pH (7.35-7.45) ABG pCO2 (35-45) mmHG ABG pO2 (80-105) mmHG ABG HCO3 (22-26) mEq/L ABG Total CO2 (23-27) mmol/L ABG Base Excess (-2.0-3.0) Sodium 139 (136-145) mmol/L Potassium 3.7 (3.5-5.1) mmol/L Chloride 103 (98-107) mmol/L Carbon Dioxide 24.2 (21.0-32.0) mmol/L BUN 13 (7.0-18.0) mg/dL Creatinine 0.6 (0.6-1.0) mg/dL Est Cr Clr Drug Dosing 134.91 mL/min Estimated GFR (MDRD) > 60.0 ml/min Glucose 91 (74-106) mg/dL Calcium 8.4 L (8.5-10.1) mg/dL Total Bilirubin 0.4 (0.2-1.0) mg/dL AST 28 (15-37) IU/L ALT 26 (14-63) IU/L Alkaline Phosphatase 154 H (46-116) U/L Total Protein 6.2 L (6.4-8.2) g/dL Albumin 2.6 L (3.4-5.0) g/dL Globulin 3.6 (2.6-4.0) g/dL Albumin/Globulin Ratio 0.7 L (0.9-1.6) Urine Color Urine Appearance Urine pH (5.0-8.0) Ur Specific [place] (1.001-1.035) Urine Protein (NEGATIVE) mg/dL Urine Glucose (UA) (NEGATIVE) mg/dL Urine Ketones (NEGATIVE) mg/dL Urine Occult Blood (NEGATIVE) Urine Nitrite (NEGATIVE) Urine Bilirubin (NEGATIVE) Urine Urobilinogen (<2.0) EU/dL Ur Leukocyte Esterase (NEGATIVE) Urine RBC (0-2/HPF) Urine WBC (0-5/HPF) Ur Epithelial Cells (NONE-FEW) Urine Bacteria (NEGATIVE) Result Diagrams: 09/14/21 05:58 09/14/21 05:58 Sepsis Event Note - Evaluation Sepsis Screening Result: No Definite Risk - Focused Exam Vital Signs: Vital Signs Temp Resp BP BP Pulse Ox 09/14/21 06:00 30 H 106/61 122/77 90 L 09/14/21 05:00 27 H 119/68 105/75 90 L 09/14/21 04:00 36.2 C 27 H 113/64 122/77 89 L 09/14/21 03:00 28 H 125/68 128/82 90 L 09/14/21 02:00 33 H 130/74 154/87 H 89 L 09/14/21 01:00 31 H 120/59 L 143/77 H 90 L 09/14/21 00:00 36.1 C 32 H 127/64 129/78 91 L - Problem List & Annotations (1) COVID-19 SNOMED Code(s): 828601674 Code(s): U07.1 - COVID-19 Status: Acute Current Visit: Yes (2) Hypoxia SNOMED Code(s): 054652685 Code(s): R09.02 - HYPOXEMIA Status: Acute Current Visit: Yes - Problem List Review Problem List Initiated/Reviewed/Updated: Yes - My Orders Last 24 Hours: My Active Orders 09/13/21 14:09 Docusate Sodium [Colace] 100 mg PO DAILY PRN 09/14/21 08:39 Morphine 2 mg IVPUSH Q3H PRN 09/14/21 11:00 [id number] [Rocephin in Dextrose,Iso-Osm 1 GM/50 ML] 1 gm Premix Bag 1 bag IV Q24H 09/14/21 11:09 ABG [BLOOD GAS ARTERIAL] [BG] Routine - Plan Plan:: 25-year-old female admitted for acute hypoxic respiratory failure secondary to Covid pneumonia acute hypoxic respiratory failure: on BIPAP and Precedex. Desated with trip to CT scan, will check ABG COVID: on dexamethasone, finished remdesivir. UTI: exchange cha, CT scan does not show any complicating features, will start Rocephin. PE: on heparin drip Possible Post depression: Dr. Turpin has been consulted
[2021-09-14] MEDS: ZINC 50 MG PO SCH (11:56)
[2021-09-14] MEDS: [UNRECOGNIZED DRUG - OTHER] PO SCH (11:56)
[2021-09-14] MEDS: Cholecalciferol (Vitamin D3) 25 MCG Tab PO SCH (11:56)
[2021-09-14] MEDS: Ascorbic Acid 500 MG Tab PO SCH (11:58)
[2021-09-14] MEDS: Dexamethasone 4 MG Tab PO SCH (11:58)
[2021-09-14] MEDS: Cyanocobalamin (Vitamin B12) 500 MCG Tab PO SCH (11:58)
[2021-09-14] MEDS: FLUoxetine 20 MG Cap PO SCH (11:59)
[2021-09-14] MEDS: Pantoprazole 40 MG Tab.CR PO SCH (11:59)
[2021-09-14] MEDS ORDERED: HYDROmorphone 1 MG/ML Syringe IVPUSH PRN (13:02)
--- NOTE | 2021-09-14 13:29 | PN ---
THC Physician - Brief Progress [id number]/12/2021 13:25[facility] Martín Onofre, [place] - [place] (JORGE) - [place] [facility] COVID+Date of Service 09/14/2021 13:25HP I/Events of Note eICU Brief Progress NoteNotified patient working harder, more hypoxemic. On EPAP 8 F iO2 100% PaO2 50. On my exam pulling ~1L TV, RR 40s, MV [id number] tall per report, PBW ~59kg, 6cc/kg ~3 50ccRecommendations:Proceed with intubation given high work of breathing and hypoxiaSuggest initial v ent settings: VC TV 350, RR 25, PEEP 14, FiO2 100%Fentanyl drip and propofol for sedation and analges ia, would titrate to target RASS of -4 at least initially in immediate post-intubation period, can st art propofol at 20mcg/kg/min, titrate q15min 10mcg/kg/min, start fentanyl drip at 50mcg/hr, titrate q 1h 25mcg/hrKeep norepinephrine in room for any sedation or PEEP related hypotensionCXR and ABG post-i ntubationOkay to leave dexmedetomidine on for intubation and post-intubation periodBroaden antibiotic s to vanc/zosyn, can get MRSA nares and de-escalate based on culture resultsInterventions Major-Respi ratory failure - evaluation and managementElectronically Signed by: LIV HAINES) on 13:28
[2021-09-14] MEDS ORDERED: Propofol 200 MG/20 ML SDV ONE (14:38)
[2021-09-14] MEDS ORDERED: Rocuronium Bromide 50 MG/5 ML Syringe ONE ×2 (14:38→15:10)
[2021-09-14] MEDS: fentaNYL/Normal Saline 2,500 MCG in Premix Bag 1 BAG IV SCH ×2 (14:50→20:50)
[2021-09-14] MEDS: propofoL 100 ML IV SCH ×3 (14:50→20:51)
[2021-09-14] MEDS ORDERED: Lidocaine 2% 100 MG/5 ML Syringe ONE (15:10)
--- NOTE | 2021-09-14 16:17 | PCM.PR.ETI ---
Endotracheal Intubation - Endotracheal Intubation Time of Intubation: 14:52 ET Intubation Indication: Respiratory Failure Preparation: Suction, Balloon Tested, BVM Set Up, Difficult Airway Equip Pre-Oxygenation: Assisted with BVM, 100% FiO2 Anesthesia Meds: Rocuronium Placement: Orotracheal Cords Visualized: Yes, Grade 1 ETT Size In mm: 7.5 Number of Attempts: 1 Confirmed By: CO2 Indicator, Bilateral Breath Sounds, Chest Xray Tube Secured By: By RT
--- NOTE | 2021-09-14 17:41 | PN ---
THC Physician - Brief Progress [id number]/12/2021 17:40[facility] Martín singh, [place] - [place]GE[place] - [place] [facility] [place] COVID+Date of Service 09/14/2021 17:40HP I/Events of Note eICU Update NoteNotified patient desynchronous with vent, with request for further o rders.Currently patient on 50mcg/kg/min propofol, fentanyl 75mcg/hr for sedationRecommendations:100mc g bolus of fentanyl, increase drip rate to 175mcg/hrIncrease propofol to 60mcg/kg/minAbove orders wendy gill in EMR, plan communicated to bedside RN over telephoneInterventions Major-Respiratory failure - e valuation and management
--- NOTE | 2021-09-14 17:50 | CR ---
Indication: NG tube placement Technique: Abdomen 1 view Comparison: None Findings/Impression: Nasogastric tube with tip in the body of the stomach with the nasogastric port at the gastroesophageal junction level. No dilated loops of bowel within the upper abdomen. Hazy opacities demonstrated within the bilateral lower lungs. Dictated by Jourdan Cox MD @ 09/14/2021 5:49:54 PM (Electronically Signed)
--- NOTE | 2021-09-14 17:54 | CR ---
Indication: Endotracheal tube placement Technique: Chest 1 view Comparison: Chest x-ray 09/14/2021 Findings/Impression: Cardiovascular and mediastinum: Endotracheal tube is present at the distal trachea. Right internal jugular line with tip at the distal superior vena cava. Nasogastric tube appears coiled at the level of the thoracic inlet. Follow-up abdominal film performed later shows this to be repositioned. See abdomen x-ray for comments on NG-tube placement. Lungs and pleural space: Diffuse hazy opacities throughout the lungs suggestive of a viral pneumonia. No pneumothorax seen. Note that the left lung apex is excluded on the exam. Bones and soft tissues: No acute findings. Dictated by Jourdan Cox MD @ 09/14/2021 5:52:36 PM (Electronically Signed)
[2021-09-14] MEDS: Piperacillin/Tazobactam 3.375 GM in Sodium Chloride 0.9% 50 ML IV SCH ×2 (19:10→20:08)
[2021-09-14] MEDS ORDERED: Piperacillin/Tazobactam 3.375 GM in Sodium Chloride 0.9% 50 ML IV SCH (20:30)
--- NOTE | 2021-09-14 20:41 | PCM.DCSUM1 ---
Discharge Summary - Discharge Data Discharge Date: 09/14/21 Discharge Disposition: Home, Self-Care 01 Condition: Stable - Referral to Home Health Primary Care Physician: PCP None - Discharge Diagnosis/Problem(s) (1) COVID-19 SNOMED Code(s): 616371991 ICD Code: U07.1 - COVID-19 Status: Acute Current Visit: Yes (2) Hypoxia SNOMED Code(s): 915793124 ICD Code: R09.02 - HYPOXEMIA Status: Acute Current Visit: Yes - Patient Summary/Data Hospital Course: 25-year-old female status post section 08/29/21 who tested positive for COVID-19 on August 28 who was admitted for COVID-19 with hypoxia on Septemberr. She was admitted to the ICU due to the need for heated high flow NC on admission. CT angio on admission showed progressive ground glass opacities. Patient was treated with Remdesivir, Dexaemthasone and Actemra (Sep 04). Her hypoxia did worsen and on Sep [address] scan showed peripheral PEs. She was then started on a heparin drip. Dr. Turpin a psychiatrist was consulted on family and patient's request due to concerns of post- depression. She was transition to BIPAP with precedex and for the past few days she has been desating significantly with movement. Today she developed a WBC of 16.8 and patient developed left flank pain which was felt to be musculoskeletal. CT abdomen was unremarkable. She was given Rocephin which was then broaden to Vancomycin and Zosyn. Later this morning she developed worsening tachypnea with ABG pO2 of 50. She was intubated and placed on propofol and fentanyl drip. Levophed has been used due to low blood pressures following sedation. Due to her need for higher level of care [facility] was called and Dr. Zuñiga has accepted the patient. - Discharge Plan *PRESCRIPTION DRUG MONITORING PROGRAM REVIEWED*: Not Applicable *COPY OF PRESCRIPTION DRUG MONITORING REPORT IN PATIENT JOSE: Not Applicable Home Medications: Home Meds Pnv No.95/Ferrous Fum/Folic AC [ Vitamins Tablet] 1 tab PO DAILY 08/28/21 [History] Patient Handouts: Hypoxia, COVID-19 Frequently Asked Questions, COVID-19, COVID-19 Vaccine Information, COVID-19: How to Protect Yourself and Others - CDC, How to Wear and Take Off Your Mask - CDC (02/01/2021), COVID-19: Quarantine vs. Isolation - CDC (10/19/2020) Referrals: PCP,None [Primary Care Provider] - (Follow up with primary care on friday to arrange for patient care. ) - Discharge Summary/Plan Comment DC Time >30 min.: Yes Total # of Minutes for Discharge Time: 60 - Patient Data Vitals - Most Recent: Last Vital Signs Temp 36.2 C 09/14/21 04:00 Pulse 105 H 09/04/21 07:00 Resp 30 H 09/14/21 06:00 BP 106/61 09/14/21 06:00 Pulse Ox 90 L 09/14/21 06:00 Weight - Most Recent: 87.317 kg I&O - Last 24 hours: Intake & Output 09/14/21 09/14/21 09/14/21 06:59 14:59 22:59 Intake Total 681 Output Total 975 Balance -294 Lab Results - Last 24 hrs: Laboratory Results - last 24 hr 09/13/21 09/14/21 09/14/21 Range/Units 20:30 00:30 05:45 WBC (4.0-11.0) K/uL RBC (4.30-5.90) M/uL Hgb (12.0-16.0) g/dL Hct (36.0-46.0) % MCV (80.0-98.0) fL MCH (27.0-32.0) pg MCHC (31.0-37.0) g/dL RDW Std Deviation (28.0-62.0) fl RDW Coeff of Kwasi (11.0-15.0) % Plt Count (150-400) K/uL MPV (7.40-12.00) fL Neut % (Auto) (48.0-80.0) % Lymph % (Auto) (16.0-40.0) % [place] % (Auto) (0.0-15.0) % Eos % (Auto) (0.0-7.0) % Baso % (Auto) (0.0-1.5) % Neut # (Auto) (1.4-5.7) K/uL Lymph # (Auto) (0.6-2.4) K/uL [place] # (Auto) (0.0-0.8) K/uL Eos # (Auto) (0.0-0.7) K/uL Baso # (Auto) (0.0-0.1) K/uL Nucleated RBC % /100WBC Nucleated RBCs # K/uL APTT 63.9 H (18.6-31.3) SEC ABG pH 7.43 (7.35-7.45) ABG pCO2 38 (35-45) mmHG ABG pO2 77 L (80-105) mmHG ABG HCO3 26 (22-26) mEq/L ABG Total CO2 27 (23-27) mmol/L ABG Base Excess 1.0 (-2.0-3.0) Sodium (136-145) mmol/L Potassium (3.5-5.1) mmol/L Chloride (98-107) mmol/L Carbon Dioxide (21.0-32.0) mmol/L BUN (7.0-18.0) mg/dL Creatinine (0.6-1.0) mg/dL Est Cr Clr Drug Dosing mL/min Estimated GFR (MDRD) ml/min Glucose (74-106) mg/dL Calcium (8.5-10.1) mg/dL Total Bilirubin (0.2-1.0) mg/dL AST (15-37) IU/L ALT (14-63) IU/L Alkaline Phosphatase (46-116) U/L Total Protein (6.4-8.2) g/dL Albumin (3.4-5.0) g/dL Globulin (2.6-4.0) g/dL Albumin/Globulin Ratio (0.9-1.6) Urine Color YELLOW Urine Appearance CLOUDY Urine pH 7.0 (5.0-8.0) Ur Specific [place] 1.020 (1.001-1.035) Urine Protein TRACE H (NEGATIVE) mg/dL Urine Glucose (UA) NEGATIVE (NEGATIVE) mg/dL Urine Ketones NEGATIVE (NEGATIVE) mg/dL Urine Occult Blood LARGE H (NEGATIVE) Urine Nitrite POSITIVE H (NEGATIVE) Urine Bilirubin NEGATIVE (NEGATIVE) Urine Urobilinogen 0.2 (<2.0) EU/dL Ur Leukocyte Esterase LARGE H (NEGATIVE) Urine RBC 35-40 (0-2/HPF) Urine WBC 100-110 (0-5/HPF) Ur Epithelial Cells RARE (NONE-FEW) Urine Bacteria 2+ H (NEGATIVE) 09/14/21 09/14/21 09/14/21 Range/Units 05:58 05:58 05:58 WBC 16.80 H (4.0-11.0) K/uL RBC 4.14 L (4.30-5.90) M/uL Hgb 11.3 L (12.0-16.0) g/dL Hct 35.1 L (36.0-46.0) % MCV 84.8 (80.0-98.0) fL MCH 27.3 (27.0-32.0) pg MCHC 32.2 (31.0-37.0) g/dL RDW Std Deviation 41.4 (28.0-62.0) fl RDW Coeff of Kwasi 14 (11.0-15.0) % Plt Count 365 (150-400) K/uL MPV 10.30 (7.40-12.00) fL Neut % (Auto) 80.7 H (48.0-80.0) % Lymph % (Auto) 11.4 L (16.0-40.0) % [place] % (Auto) 7.1 (0.0-15.0) % Eos % (Auto) 0.7 (0.0-7.0) % Baso % (Auto) 0.1 (0.0-1.5) % Neut # (Auto) 13.6 H (1.4-5.7) K/uL Lymph # (Auto) 1.9 (0.6-2.4) K/uL [place] # (Auto) 1.2 H (0.0-0.8) K/uL Eos # (Auto) 0.1 (0.0-0.7) K/uL Baso # (Auto) 0.0 (0.0-0.1) K/uL Nucleated RBC % 0.0 /100WBC Nucleated RBCs # 0 K/uL APTT 63.7 H (18.6-31.3) SEC ABG pH (7.35-7.45) ABG pCO2 (35-45) mmHG ABG pO2 (80-105) mmHG ABG HCO3 (22-26) mEq/L ABG Total CO2 (23-27) mmol/L ABG Base Excess (-2.0-3.0) Sodium 139 (136-145) mmol/L Potassium 3.7 (3.5-5.1) mmol/L Chloride 103 (98-107) mmol/L Carbon Dioxide 24.2 (21.0-32.0) mmol/L BUN 13 (7.0-18.0) mg/dL Creatinine 0.6 (0.6-1.0) mg/dL Est Cr Clr Drug Dosing 134.91 mL/min Estimated GFR (MDRD) > 60.0 ml/min Glucose 91 (74-106) mg/dL Calcium 8.4 L (8.5-10.1) mg/dL Total Bilirubin 0.4 (0.2-1.0) mg/dL AST 28 (15-37) IU/L ALT 26 (14-63) IU/L Alkaline Phosphatase 154 H (46-116) U/L Total Protein 6.2 L (6.4-8.2) g/dL Albumin 2.6 L (3.4-5.0) g/dL Globulin 3.6 (2.6-4.0) g/dL Albumin/Globulin Ratio 0.7 L (0.9-1.6) Urine Color Urine Appearance Urine pH (5.0-8.0) Ur Specific [place] (1.001-1.035) Urine Protein (NEGATIVE) mg/dL Urine Glucose (UA) (NEGATIVE) mg/dL Urine Ketones (NEGATIVE) mg/dL Urine Occult Blood (NEGATIVE) Urine Nitrite (NEGATIVE) Urine Bilirubin (NEGATIVE) Urine Urobilinogen (<2.0) EU/dL Ur Leukocyte Esterase (NEGATIVE) Urine RBC (0-2/HPF) Urine WBC (0-5/HPF) Ur Epithelial Cells (NONE-FEW) Urine Bacteria (NEGATIVE) 09/14/21 09/14/21 Range/Units 12:30 17:15 WBC (4.0-11.0) K/uL RBC (4.30-5.90) M/uL Hgb (12.0-16.0) g/dL Hct (36.0-46.0) % MCV (80.0-98.0) fL MCH (27.0-32.0) pg MCHC (31.0-37.0) g/dL RDW Std Deviation (28.0-62.0) fl RDW Coeff of Kwasi (11.0-15.0) % Plt Count (150-400) K/uL MPV (7.40-12.00) fL Neut % (Auto) (48.0-80.0) % Lymph % (Auto) (16.0-40.0) % [place] % (Auto) (0.0-15.0) % Eos % (Auto) (0.0-7.0) % Baso % (Auto) (0.0-1.5) % Neut # (Auto) (1.4-5.7) K/uL Lymph # (Auto) (0.6-2.4) K/uL [place] # (Auto) (0.0-0.8) K/uL Eos # (Auto) (0.0-0.7) K/uL Baso # (Auto) (0.0-0.1) K/uL Nucleated RBC % /100WBC Nucleated RBCs # K/uL APTT (18.6-31.3) SEC ABG pH 7.43 7.32 L (7.35-7.45) ABG pCO2 41 53 H (35-45) mmHG ABG pO2 50 L 70 L (80-105) mmHG ABG HCO3 27 H 27 H (22-26) mEq/L ABG Total CO2 24.9 25.0 (23-27) mmol/L ABG Base Excess 2.6 0.1 (-2.0-3.0) Sodium (136-145) mmol/L Potassium (3.5-5.1) mmol/L Chloride (98-107) mmol/L Carbon Dioxide (21.0-32.0) mmol/L BUN (7.0-18.0) mg/dL Creatinine (0.6-1.0) mg/dL Est Cr Clr Drug Dosing mL/min Estimated GFR (MDRD) ml/min Glucose (74-106) mg/dL Calcium (8.5-10.1) mg/dL Total Bilirubin (0.2-1.0) mg/dL AST (15-37) IU/L ALT (14-63) IU/L Alkaline Phosphatase (46-116) U/L Total Protein (6.4-8.2) g/dL Albumin (3.4-5.0) g/dL Globulin (2.6-4.0) g/dL Albumin/Globulin Ratio (0.9-1.6) Urine Color Urine Appearance Urine pH (5.0-8.0) Ur Specific [place] (1.001-1.035) Urine Protein (NEGATIVE) mg/dL Urine Glucose (UA) (NEGATIVE) mg/dL Urine Ketones (NEGATIVE) mg/dL Urine Occult Blood (NEGATIVE) Urine Nitrite (NEGATIVE) Urine Bilirubin (NEGATIVE) Urine Urobilinogen (<2.0) EU/dL Ur Leukocyte Esterase (NEGATIVE) Urine RBC (0-2/HPF) Urine WBC (0-5/HPF) Ur Epithelial Cells (NONE-FEW) Urine Bacteria (NEGATIVE) Med Orders - Current: Current Medications Acetaminophen (Acetaminophen 325 Mg Tab) 650 mg PO Q6H PRN PRN Reason: Pain (Mild 1-3)/fever Last Admin: 09/04/21 12:33 Dose: 650 mg Documented by: Albuterol/Ipratropium (Albuterol/Ipratropium 3.0-0.5 Mg/3 Ml Neb Soln) 3 ml NEB Q4HRRT [facility] Last Admin: 09/14/21 20:07 Dose: Not Given Documented by: Albuterol/Ipratropium (Albuterol/Ipratropium 4 Gm Inhalation Alto) 0 gm INH Q4HRRT PRN PRN Reason: Dyspnea Ascorbic Acid (Ascorbic Acid 500 Mg Tab) 1,000 mg PO DAILY [facility] Last Admin: 09/14/21 11:58 Dose: 1,000 mg Documented by: Cholecalciferol (Cholecalciferol (Vitamin D3) 25 Mcg Tab) 50 mcg PO DAILY [facility] Last Admin: 09/14/21 11:56 Dose: 50 mcg Documented by: Cyanocobalamin (Cyanocobalamin (Vitamin B12) 500 Mcg Tab) 1,000 mcg PO DAILY [facility] Last Admin: 09/14/21 11:58 Dose: 1,000 mcg Documented by: Dexamethasone (Dexamethasone 4 Mg Tab) 6 mg PO DAILY [facility] Last Admin: 09/14/21 11:58 Dose: 6 mg Documented by: Docusate Sodium (Docusate Sodium 100 Mg Cap) 100 mg PO DAILY PRN PRN Reason: Constipation Fluoxetine HCl (Fluoxetine 20 Mg Cap) 20 mg PO BID [facility] Stop: 09/25/21 09:01 Last Admin: 09/14/21 11:59 Dose: 20 mg Documented by: Guaifenesin/Dextromethorphan (Guaifenesin/Dextromethorphan 100-10 Mg/5 Ml Soln 10 Ml Cup) 10 ml PO Q6H PRN PRN Reason: Cough Last Admin: 09/10/21 03:33 Dose: 10 ml Documented by: Hydromorphone HCl (Hydromorphone 1 Mg/Ml Syringe) 1 mg IVPUSH Q3H PRN PRN Reason: Pain Last Admin: 09/14/21 13:25 Dose: 1 mg Documented by: Heparin Sodium/Sodium Chloride (Heparin 25,000 Units In 1/2 Ns 500 Ml) 500 mls @ 26.263 mls/hr IV TITRATE [place]; Protocol Last Admin: 09/13/21 20:01 Dose: 15 units/kg/hr, 26.263 mls/hr Documented by: Dexmedetomidine/Sodium (Chloride 400 mcg/ Premix) 100 mls @ 4.393 mls/hr IV TITRATE [place]; Protocol Last Admin: 09/14/21 11:59 Dose: 0.6 mcg/kg/hr, 13.179 mls/hr Documented by: Norepinephrine Bitartrate (Norepinephr-0.9% Nacl 4 Mg/250) 4 mg in 250 mls @ 7.5 mls/hr IV TITRATE [place]; Protocol Last Admin: 09/14/21 11:30 Dose: 2 mcg/min, 7.5 mls/hr Documented by: Fentanyl Citrate 2,500 mcg/ (Premix) 250 mls @ 8.732 mls/hr IV TITRATE [place]; Protocol Last Admin: 09/14/21 14:50 Dose: 3 mcg/kg/hr, 26.195 mls/hr Documented by: Propofol (Diprivan 100 Ml) 100 mls @ 2.62 mls/hr IV TITRATE [place]; Protocol Last Admin: 09/14/21 17:30 Dose: 50 mcg/kg/min, 26.195 mls/hr Documented by: Vancomycin HCl 1.25 gm/ Sodium (Chloride) 250 mls @ 200 mls/hr IV Q8H [place] Piperacillin Sod/Tazobactam (Sod 3.375 gm/ Sodium Chloride) 50 mls @ 100 mls/hr IV Q6H [facility] Melatonin (Melatonin 3 Mg Tab) 6 mg PO BEDTIME PRN PRN Reason: Insomnia Last Admin: 09/08/21 21:38 Dose: 6 mg Documented by: Morphine Sulfate (Morphine 2 Mg/Ml Syringe) 2 mg IVPUSH Q3H PRN PRN Reason: Pain Last Admin: 09/14/21 11:56 Dose: 2 mg Documented by: Ondansetron HCl (Ondansetron 4 Mg/2 Ml Sdv) 4 mg IVPUSH Q4H PRN PRN Reason: Nausea/Vomiting Pantoprazole Sodium (Pantoprazole 40 Mg Tab.Cr) 40 mg PO DAILY [facility] Last Admin: 09/14/21 11:59 Dose: 40 mg Documented by: Zinc 50 Mg Tab 1 each PO DAILY [facility] Last Admin: 09/14/21 11:56 Dose: 1 each Documented by: Gamma-Aminobutyric Acid (Jaxon) 750mg Tab 1 each PO DAILY [facility] Last Admin: 09/14/21 11:56 Dose: 1 each Documented by: Pyridoxine HCl (Vitamin B6-Pyridoxine 50 Mg Tab) 100 mg PO BEDTIME [facility] Last Admin: 09/13/21 20:00 Dose: 100 mg Documented by: Sodium Chloride (Sodium Chloride 0.9% 10 Ml Syringe) 10 ml FLUSH ASDIRECTED PRN PRN Reason: Keep Vein Open Last Admin: 09/03/21 18:01 Dose: 10 ml Documented by: Sodium Chloride (Sodium Chloride 0.9% 2.5 Ml Syringe) 2.5 ml FLUSH ASDIRECTED PRN PRN Reason: Keep Vein Open Last Admin: 09/03/21 18:00 Dose: 2.5 ml Documented by: Vancomycin HCl (Pharmacy To Dose - Vancomycin) 1 dose .XX ASDIRECTED [facility] Witch Tete (Witch Tete Medicated Pads 40/Jar) 1 pad TOP ASDIRECTED PRN PRN Reason: Hemorrhoids Last Admin: 09/13/21 14:02 Dose: 1 bandage Documented by: Discontinued Medications Albuterol/Ipratropium (Albuterol/Ipratropium 3.0-0.5 Mg/3 Ml Neb Soln) 3 ml NEB Q4HRRT PRN PRN Reason: Shortness Of Breath/wheezing Last Admin: 09/12/21 08:32 Dose: 3 ml Documented by: Albuterol/Ipratropium (Albuterol/Ipratropium 4 Gm Inhalation Alto) 0 gm INH Q4H [facility] Last Admin: 09/12/21 16:16 Dose: Not Given Documented by: Baclofen (Baclofen 10 Mg Tab) 10 mg PO ONETIME ONE Stop: 09/14/21 04:51 Last Admin: 09/14/21 05:09 Dose: 10 mg Documented by: Dexamethasone (Dexamethasone 10 Mg/Ml Sdv) 6 mg IVPUSH ONETIME ONE Stop: 09/03/21 17:43 Last Admin: 09/03/21 18:01 Dose: 6 mg Documented by: Enoxaparin Sodium (Enoxaparin 40 Mg/0.4 Ml Syringe) 40 mg SUBCUT Q24H [facility] Last Admin: 09/10/21 21:41 Dose: Not Given Documented by: Fentanyl (Fentanyl 100 Mcg/2 Ml Sdv) 25 mcg IVPUSH ONETIME ONE Stop: 09/14/21 04:00 Last Admin: 09/14/21 04:08 Dose: 25 mcg Documented by: Fentanyl (Fentanyl 100 Mcg/2 Ml Sdv) 100 mcg IVPUSH ONETIME ONE Stop: 09/14/21 17:46 Last Admin: 09/14/21 19:34 Dose: Not Given Documented by: Fluoxetine HCl (Fluoxetine 20 Mg Cap) 20 mg PO BID [facility] Stop: 09/25/21 09:01 Heparin Sodium (Porcine) (Heparin Sodium 5,000 Units/Ml Vial) 7,000 units IVPUSH ONETIME ONE Stop: 09/10/21 15:01 Last Admin: 09/10/21 15:12 Dose: 7,000 units Documented by: Heparin Sodium (Porcine) (Heparin Sodium 5,000 Units/Ml Vial) 1,500 units IVPUSH ONETIME ONE Stop: 09/11/21 02:52 Last Admin: 09/11/21 03:00 Dose: 1,500 units Documented by: Heparin Sodium (Porcine) (Heparin Sodium 5,000 Units/Ml Vial) 0 units IVPUSH .BOLUS ONE Stop: 09/11/21 10:01 Last Admin: 09/11/21 10:36 Dose: 1,500 units Documented by: Hydromorphone HCl (Hydromorphone 1 Mg/Ml Syringe) 0.8 mg IVPUSH ONETIME ONE Stop: 09/14/21 05:30 Last Admin: 09/14/21 05:34 Dose: 0.8 mg Documented by: Lactated Ringer's (Ringers, Lactated) 1,000 mls @ 999 mls/hr IV ASDIRECTED [facility] Last Admin: 09/03/21 18:00 Dose: 999 mls/hr Documented by: Remdesivir 200 mg/ Sodium (Chloride) 250 mls @ 250 mls/hr IV ONETIME ONE Stop: 09/03/21 20:44 Last Admin: 09/03/21 21:34 Dose: 250 mls/hr Documented by: Remdesivir 100 mg/ Sodium (Chloride) 100 mls @ 100 mls/hr IV Q24H [facility] Stop: 09/07/21 22:44 Last Admin: 09/07/21 21:10 Dose: 100 mls/hr Documented by: Pantoprazole Sodium 40 mg/ (Sodium Chloride) 10 mls @ 300 mls/hr IV Q24H [facility] Last Admin: 09/06/21 08:06 Dose: 300 mls/hr Documented by: Tocilizumab 750 mg/ Sodium (Chloride) 137.5 mls @ 137.5 mls/hr IV ONETIME ONE Stop: 09/04/21 13:31 Last Admin: 09/04/21 14:14 Dose: 137.5 mls/hr Documented by: Ceftriaxone Sodium/Dextrose 1 (gm/ Premix) 50 mls @ 100 mls/hr IV Q24H [facility] Last Admin: 09/14/21 11:55 Dose: 100 mls/hr Documented by: Piperacillin Sod/Tazobactam (Sod 3.375 gm/ Sodium Chloride) 50 mls @ 100 mls/hr IV Q6H [facility] Last Admin: 09/14/21 20:08 Dose: Not Given Documented by: Vancomycin HCl 1.25 gm/ Sodium (Chloride) 250 mls @ 200 mls/hr IV Q8H [facility] Last Admin: 09/14/21 19:10 Dose: 200 mls/hr Documented by: Iopamidol (Iopamidol 755 Mg/Ml 500 Ml Multipack Bottle) 100 ml IVPUSH ONETIME STA Stop: 09/03/21 18:53 Last Admin: 09/03/21 18:52 Dose: 100 ml Documented by: Iopamidol (Iopamidol 755 Mg/Ml 500 Ml Multipack Bottle) 75 ml IVPUSH ONETIME STA Stop: 09/10/21 16:19 Last Admin: 09/10/21 16:19 Dose: 75 ml Documented by: Iopamidol (Iopamidol 755 Mg/Ml 500 Ml Multipack Bottle) 100 ml IVPUSH ONETIME ONE Stop: 09/14/21 10:35 Last Admin: 09/14/21 10:35 Dose: 100 ml Documented by: Lidocaine (Lidocaine 2% 5 Ml Sdv) Confirm Administered Dose 5 ml .ROUTE .STK-MED ONE Stop: 09/12/21 11:20 Lidocaine HCl (Lidocaine 2% 100 Mg/5 Ml Syringe) Confirm Administered Dose 100 mg .ROUTE .STK-MED ONE Stop: 09/14/21 15:11 Lorazepam (Lorazepam 2 Mg/Ml Sdv) 1 mg IVPUSH ONETIME PRN PRN Reason: Anxiety Last Admin: 09/09/21 22:29 Dose: 1 mg Documented by: Potassium Chloride (Potassium Chloride 20 Meq Tab.Er) 40 meq PO ONETIME ONE Stop: 09/09/21 10:16 Last Admin: 09/09/21 10:40 Dose: 40 meq Documented by: Potassium Chloride (Potassium Chloride 10% 20 Meq/15 Ml Soln 30 Ml Ud Cup) 40 meq PO ONETIME ONE Stop: 09/11/21 06:12 Last Admin: 09/11/21 06:26 Dose: Not Given Documented by: Potassium Chloride (Potassium Chloride 20 Meq Tab.Er) 40 meq PO ONETIME ONE Stop: 09/11/21 06:26 Last Admin: 09/11/21 06:30 Dose: 40 meq Documented by: Propofol (Propofol 200 Mg/20 Ml Sdv) Confirm Administered Dose 200 mg .ROUTE .STK-MED ONE Stop: 09/14/21 14:39 Rocuronium Treynor (Rocuronium Treynor 50 Mg/5 Ml Syringe) Confirm Administered Dose 50 mg .ROUTE .STK-MED ONE Stop: 09/14/21 14:39 Rocuronium Treynor (Rocuronium Treynor 50 Mg/5 Ml Syringe) Confirm Administered Dose 50 mg .ROUTE .STK-MED ONE Stop: 09/14/21 15:11 Discharge Operative/Procedures - Procedures Performed Intubation Indication: Respiratory Failure Arterial Line Indication: hemodynamic monitoring
== END 2021-09-14 22:10 | DRG 561 ==
LOC: MW.ED 17:23 → INTOOBSV 20:49 → OBSVTOIN 20:49 → MW.ICU 20:49
PROVIDERS: ADMIT Student in an Organized Health Care Education/Training Program; ATTEND Student in an Organized Health Care Education/Training Program
PROC: XW033E5 Introduction of Remdesivir Anti-infective into Peripheral Vein, Percutaneous Approach, New Technology Group 5 (ICD-10-PCS; principal; 2021-09-03)
PROC: 3E0333Z Introduction of Anti-inflammatory into Peripheral Vein, Percutaneous Approach (ICD-10-PCS; 2021-09-03)
PROC: 5A0955A Assistance with Respiratory Ventilation, Greater than 96 Consecutive Hours, High Flow/Velocity Cannula (ICD-10-PCS; 2021-09-03)
PROC: 5A09557 Assistance with Respiratory Ventilation, Greater than 96 Consecutive Hours, Continuous Positive Airway Pressure (ICD-10-PCS; 2021-09-03)
PROC: XW033H5 Introduction of Tocilizumab into Peripheral Vein, Percutaneous Approach, New Technology Group 5 (ICD-10-PCS; 2021-09-03)
PROC: 8E0ZXY6 Isolation (ICD-10-PCS; 2021-09-03)
PROC: 03HY32Z Insertion of Monitoring Device into Upper Artery, Percutaneous Approach (ICD-10-PCS; 2021-09-12)
PROC: 4A133B1 Monitoring of Arterial Pressure, Peripheral, Percutaneous Approach (ICD-10-PCS; 2021-09-12)
PROC: 4A133J1 Monitoring of Arterial Pulse, Peripheral, Percutaneous Approach (ICD-10-PCS; 2021-09-12)
PROC: 3E0DX3Z Introduction of Anti-inflammatory into Mouth and Pharynx, External Approach (ICD-10-PCS; 2021-09-14)
PROC: 0BH17EZ Insertion of Endotracheal Airway into Trachea, Via Natural or Artificial Opening (ICD-10-PCS; 2021-09-14)
PROC: 5A1935Z Respiratory Ventilation, Less than 24 Consecutive Hours (ICD-10-PCS; 2021-09-14)
PROC: 3E033XZ Introduction of Vasopressor into Peripheral Vein, Percutaneous Approach (ICD-10-PCS; 2021-09-14)
DX: O98.53 Other viral diseases complicating the puerperium (principal); U07.1 COVID-19; F32.A Depression, unspecified; O99.345 Other mental disorders complicating the puerperium; J96.01 Acute respiratory failure with hypoxia; E87.4 Mixed disorder of acid-base balance; J12.82 Pneumonia due to coronavirus disease 2019; R74.01 Elevation of levels of liver transaminase levels; Z87.891 Personal history of nicotine dependence; O99.53 Diseases of the respiratory system complicating the puerperium; O88.23 Thromboembolism in the puerperium; O86.20 Urinary tract infection following delivery, unspecified; N39.0 Urinary tract infection, site not specified; I95.9 Hypotension, unspecified
CPT/HCPCS: 36415; 36556; 36600; 36620; 51701; 51702; 51703; 71045; 71045-26; 71275; 71275-26; 74018; 74018-26; 74177; 74177-26; 80048; 80053; 81001; 82803; 83605; 83735; 83880; 84100; 84484; 85025; 85730; 86140; 93005; 94002; 94640; 94660; 96374; 99291; A9270-GY; C9113; J0696; J1100; J1170; J1644; J1650; J2060; J2270; J2543; J2704; J3010; J3370; J7050; J7120; J7620-GY; J8540; M0249; Q0249; Q9967

== ENCOUNTER 2022-08-20 18:36 | Emergency (ER) | payer BC ==
[2022-08-20 21:04] LABS: CORONAVIRUS COVID-19 NAA NEGATIVE (NEGATIVE); INFLUENZA A NAA NEGATIVE (NEGATIVE); INFLUENZA B NAA NEGATIVE (NEGATIVE)
== END 2022-08-20 21:16 | disposition home or self-care (01) ==
LOC: MW.ED 18:36
DX: J02.9 Acute pharyngitis, unspecified (principal); Z98.890 Other specified postprocedural states; Z20.822 Contact with and (suspected) exposure to COVID-19
CPT/HCPCS: 0240U; 87651; 99283; 99282